=== PATIENT | female | born 1940 | race Caucasian/White ===

== ENCOUNTER 2019-05-19 12:49 | Inpatient (IN) | payer MEDICARE ==
[2019-05-19] MEDS ORDERED: NS 0.9% 1000 ML** 1,000 ML IV ONE (12:55)
--- NOTE | 2019-05-19 12:59 | ED ---
Complex/Multi-Sys Presentation - HPI Summary HPI Summary: This patient is a 78 year old F brought to [facility] by EMS with a chief complaint of nausea/vomiting/diarrhea for the past 3 days since 05/16/19. Symptoms aggravated by nothing. Symptoms alleviated by nothing. Pt reports watery diarrhea (but denies blood). Pt denies shortness of breath, chest pain, abdominal pain, fever. Pt denies abx or traveling. Pt denies suspicious foods and anyone sick at home. Pt lives at home with . Hx bypass surgery. - History Of Current Complaint Hx Obtained From: Patient Onset/Duration: Lasting Days - 3, Still Present Aggravating Factor(s): nothing Alleviating Factor(s): nothing Associated Signs And Symptoms: Positive: Other - denies blood in diarrhea. Negative: SOB, Chest Pain, Abdominal Pain, Fever - Allergies/Home Medications Allergies/Adverse Reactions: Allergies Allergy/AdvReac Type Severity Reaction Status Date / Time No Known Allergies Allergy Verified 05/19/19 13:24 PMH/Surg Hx/FS Hx/Imm Hx Endocrine/Hematology History: Denies: Hx Diabetes Cardiovascular History: Reports: Other Cardiovascular Problems/Disorders - triple bypass Musculoskeletal History: Reports: Other Musculoskeletal History - sciatica Sensory History: Reports: Hx Contacts or Glasses Opthamlomology History: Reports: Hx Contacts or Glasses - Surgical History Surgery Procedure, Year, and Place: triple bypass, stomach operation (it was twisted and always had heartburn) - Family History Known Family History: Positive: Other - sciatica Negative: Cardiac Disease, Diabetes - Social History Alcohol Use: Rare Hx Substance Use: No Substance Use Type: Reports: None Hx Tobacco Use: Yes Smoking Status (MU): Former Smoker Review of Systems Negative: Fever Negative: Chest Pain Negative: Shortness Of Breath Positive: Vomiting, Diarrhea, Nausea, Other - denies blood in diarrhea. Negative: Abdominal Pain All Other Systems Reviewed And Are Negative: Yes Physical Exam - Summary Physical Exam Summary: VITAL SIGNS: Reviewed. GENERAL: Patient is a elderly and lethargic FEMALE who is lying comfortable in the stretcher. Patient is not in any acute respiratory distress. Pt can answer all questions. HEAD AND FACE: No signs of trauma. No ecchymosis, hematomas or skull depressions. No sinus tenderness. EYES: PERRLA, EOMI x 2, No injected conjunctiva, no nystagmus. EARS: Hearing grossly intact. Ear canals and tympanic membranes are within normal limits. MOUTH: Oral mucosa dry NECK: Supple, trachea is midline, no adenopathy, no JVD, no carotid bruit, no c- spine tenderness, neck with full ROM. CHEST: Symmetric, no tenderness at palpation. LUNGS: Clear to auscultation bilaterally. No wheezing or crackles. CVS: Regular rate and rhythm, S1 and S2 present, no murmurs or gallops appreciated. ABDOMEN: Soft, non-tender. No signs of distention. No rebound, no guarding, and no masses palpated. increased bowel sounds EXTREMITIES: FROM in all major joints, no edema, no cyanosis or clubbing. NEURO: Alert and oriented x 3. No acute neurological deficits. Speech is normal and follows commands. SKIN: increased turgor of skin Triage Information Reviewed: Yes Vital Signs Reviewed: Yes Procedures - Sedation Patient Received Moderate/Deep Sedation with Procedure: No Diagnostics - Laboratory Result Diagrams: 05/20/19 11:43 05/20/19 16:33 Lab Statement: Any lab studies that have been ordered have been reviewed, and results considered in the medical decision making process. - Radiology Abdomen X-Ray Radiology Interpretation Completed By: Radiologist Summary of Radiographic Findings: Per radiologist,. 1. Generalized paucity of bowel gas with a few dilated small bowel loops measuring up to. 3 cm. Gas does extend to the rectum. A partial bowel obstruction is not excluded. 2. Unknown rounded 4 cm structure projects in the region of the left heart border. ED physician has reviewed this imaging report. Chest X-Ray Radiology Interpretation Completed By: ED Physician Summary of Radiographic Findings: Per ED Physician,. Infiltrate on the left side. Pending official report. - CT Abdomen/Pelvis CT CT Interpretation Completed By: Radiologist Summary of CT Findings: Per radiologist,. 1. THERE IS A 3.9 CM NONAGGRESSIVE APPEARING CALCIFIED STRUCTURE ABUTTING THE POSTERIOR. LEFT HEART BORDER. THE ETIOLOGY OF THIS STRUCTURE IS UNCLEAR. CONSIDERATIONS INCLUDE. POSTOPERATIVE CHANGES AND COMPLICATED PERICARDIAL CYST. ELECTIVE FOLLOW-UP TO DOCUMENT. STABILITY. 2. THERE ARE SEVERAL FLUID-FILLED DISTENDED (NOT DILATED) LOOPS OF SMALL BOWEL WITH AN. OVERALL APPEARANCE SUGGESTIVE OF ENTERITIS. 3. SIGMOIDAL DIVERTICULOSIS WITH NO SECONDARY SIGNS OF INFLAMMATION. 4. CHOLELITHIASIS WITH NO INTRAHEPATIC BILIARY DUCTAL DILATATION. 5. NONOBSTRUCTIVE CALCULUS IN THE SUPERIOR POLE THE RIGHT KIDNEY. 6. SMALL HIATAL HERNIA. ED physician has reviewed this imaging report. - EKG 1324 Cardiac Rate: NL - 118 BPM Summary of EKG Findings: EKG reveals sinus tachycardia at 118 BPM, no ST elevations, multiple PVCs,similar to prior on 03/12/08. Complex Multi-Symp Course/Dx Assessment/Plan: This patient is a 78 year old F brought to [facility] by EMS with a chief complaint of nausea/vomiting/diarrhea for the past 3 days since 05/16/19. Symptoms aggravated by nothing. Symptoms alleviated by nothing. Pt reports watery diarrhea (but denies blood). Pt denies shortness of breath, chest pain, abdominal pain, fever. Pt denies abx or traveling. Pt denies suspicious foods and anyone sick at home. Pt lives at home with . Hx bypass surgery. Patient alert the sepsis alert. She started IVF 30 cc/kg and since she is having diarrhea and abdominal pain she was given ciprofloxacin. Blood test result shows a CBC with WBC of 21.1, hemoglobin 12.7, hematocrit 39, plt count 106. CMP without any significant abnormality except for carbon dioxide of 21, anion gap is 13, BUN is 43, creatinine 1.97, glucose 139, lactic acid is 5.8, calcium 8.4, magnesium 1.6, total bili is 1.2, CRP 321, total protein 5.8. Abdominal X ray IMPRESSION: 1. Generalized paucity of bowel gas with a few dilated small bowel loops measuring up to 3 cm. Gas does extend to the rectum. A partial bowel obstruction is not excluded. 2. Unknown rounded 4 cm structure projects in the region of the left heart border. Abdominal and pelvic CT IMPRESSION: 1. THERE IS A 3.9 CM NONAGGRESSIVE APPEARING CALCIFIED STRUCTURE ABUTTING THE POSTERIOR LEFT HEART BORDER. THE ETIOLOGY OF THIS STRUCTURE IS UNCLEAR. CONSIDERATIONS INCLUDE POSTOPERATIVE CHANGES AND COMPLICATED PERICARDIAL CYST. ELECTIVE FOLLOW-UP TO DOCUMENT. STABILITY. 2. THERE ARE SEVERAL FLUID-FILLED DISTENDED (NOT DILATED) LOOPS OF SMALL BOWEL WITH AN. OVERALL APPEARANCE SUGGESTIVE OF ENTERITIS. 3. SIGMOIDAL DIVERTICULOSIS WITH NO SECONDARY SIGNS OF INFLAMMATION. 4. CHOLELITHIASIS WITH NO INTRAHEPATIC BILIARY DUCTAL DILATATION. 5. NON-OBSTRUCTIVE CALCULUS IN THE SUPERIOR POLE THE RIGHT KIDNEY. 6. SMALL HIATAL HERNIA. She was given magnesium for hypomagnesemia. I discussed the case with Dr. Dempsey who accepted the patient for admission to the ICU. - Diagnoses Provider Diagnoses: Sepsis, Acute renal failure - Physician Notifications Discussed Care Of Patient With: Renee Dempsey - pulmonary Time Discussed With Above Provider: 16:20 Instructed by Provider To: Admit As Inpatient Discharge ED - Sign-Out/Discharge Documenting (check all that apply): Patient Departure - admit - Discharge Plan Condition: Guarded Disposition: ADMITTED TO [facility] - Billing Disposition and Condition Condition: GUARDED Disposition: Admitted to [facility] - Attestation Statements Document Initiated by Scribe: Yes Documenting Scribe: Keshia Vazquez Provider For Whom Scribe is Documenting (Include Credential): Dr. Dre Castellanos MD Scribe Attestation: I, Keshia Vazquez, scribed for Dr. Dre Castellanos MD on 05/20/19 at 1858. Scribe Documentation Reviewed: Yes Provider Attestation: The documentation as recorded by the Keshia walker accurately reflects the service I personally performed and the decisions made by me, Dr. Dre Castellanos MD Status of Scribe Document: Viewed
[2019-05-19 13:26] LABS: ABS Lymphocytes 0.3 10^3/ul (1.0-4.8); ABS Monocytes 0.7 10^3/ul (0-0.8); Eosinophil % 0.1 %; Hematocrit 39 % (35-47); Hemoglobin 12.7 g/dL (12.0-16.0); Lymphocyte % 1.3 %; Mean Corpuscular HGB Conc 33 g/dL (31-36); Mean Corpuscular Hemoglobin 30 pg (27-31); Mean Corpuscular Volume 91 fL (80-97); Mean Platelet Volume 8.9 fL (7.4-10.4); Nucleated Red Blood Cells % 0.1; Platelet Count 106 10^3/uL (150-450); Red Blood Count 4.29 10^6 /uL (3.70-4.87); Red Cell Distribution Width 16 % (10-15); White Blood Count 21.1 10^3/uL (3.5-10.8)
[2019-05-19] MEDS ORDERED: NS 0.9% 1000 ML** 1,000 ML IV.FLUID IV ONE (13:35)
[2019-05-19] MEDS ORDERED: cefTRIAXone(*) 1 GM in NS 0.9% 50 ML* 50 ML IVPB ONE (13:35)
[2019-05-19] MEDS ORDERED: metroNIDAZOLE IV 500 MG/100ML* 500 MG/100 ML BAG IVPB ONE (13:35)
[2019-05-19 13:54] LABS: ALT 28 U/L (7-52); AST 39 U/L (13-39); Albumin 3.3 g/dL (3.2-5.2); Albumin/Globulin Ratio 1.3 (1-3); Alkaline Phosphatase 171 U/L (34-104); Anion Gap 13 mmol/L (2-11); BUN/Creatinine Ratio 21.8 (8-20); Blood Urea Nitrogen 43 mg/dL (6-24); C Reactive Protein 321.89 mg/L (<8.01); CO2 Carbon Dioxide 21 mmol/L (22-32); Calcium 8.4 mg/dL (8.6-10.3); Chloride 102 mmol/L (101-111); EGFR African American 29.8 (>60); EGFR Non-African American 24.7 (>60); Globulin 2.5 g/dL (2-4); Glucose 139 mg/dL (70-100); Magnesium 1.6 mg/dL (1.9-2.7); Potassium 3.9 mmol/L (3.5-5.0); Sodium 136 mmol/L (135-145); Total Protein 5.8 g/dL (6.4-8.9)
[2019-05-19] MEDS ORDERED: Magnesium Sulfate 2 GM IV* 2 GM/50 ML BAG IVPB ONE (16:20)
[2019-05-19] MEDS ORDERED: Piperacillin/Tazobac ADVAN(*) 3.375 GM in NS 0.9% 100 ML* 100 ML IVPB ONE (16:54)
[2019-05-19] MEDS ORDERED: Zosyn per Pharmacy* NOTE FOLLOW UP SCH (17:00)
[2019-05-19] MEDS ORDERED: Acetaminophen TAB* 325 MG PO ONE (17:06)
[2019-05-19 17:07] LABS: Urine Appearance Cloudy; Urine Bilirubin Negative (Negative); Urine Blood 3+ (Negative); Urine Color Amber; Urine Glucose Negative (Negative); Urine Ketones Negative (Negative); Urine Nitrite Negative (Negative); Urine Protein 2+(100 mg/dL) (Negative); Urine Specific Gravity 1.015 (1.010-1.030); Urine Urobilinogen Negative (Negative)
[2019-05-19 17:13] LABS: Urine Bacteria Absent (Absent); Urine Red Blood Cell 2+(6-10/hpf) (Absent); Urine Squamous Epithelial Cell Present (Absent); Urine White Blood Cell Trace(0-5/hpf) (Absent)
[2019-05-19 19:33] LABS: Influenza A Molecular NEGATIVE (Negative); Influenza B Molecular NEGATIVE (Negative)
--- NOTE | 2019-05-19 19:48 | HP ---
HISTORY AND PHYSICAL: DATE OF ADMISSION: 05/19/19 CHIEF COMPLAINT: Nausea, vomiting, confusion. HISTORY OF PRESENT ILLNESS: The patient is a 78-year-old female with history of coronary artery disease status post cardiac bypass, chronic back pain secondary to sciatica, history of hiatal hernia requiring surgery. The patient was brought in by her for evaluation of nausea, vomiting, and altered mental status. The patient has been having nausea, vomiting, and diarrhea for the past 3 days. She has not been able to put anything down due to this. The patient also has been having watery diarrhea. The patient has history of intermittent diarrhea since her GI surgery in the past. The patient is with no evidence of blood in the diarrhea. She has not had any oral intake for the past 3 days. No fevers at home. The patient denies shortness of breath, chest pain or abdominal pain. No history of sick contacts. No other family members with similar symptoms. No recent travel. She lives at home with her . On arrival to the ED, the patient was noted to be tachycardic and tachypneic with blood pressure 95/56. The patient also noted to have significantly elevated lactate at 5.8. She was also noted to have elevated BUN and creatinine and elevated anion gap. The patient is with elevated white count at 21 and low platelet count. The patient has been afebrile on arrival, but later was found to have temperature. The patient is being admitted to ICU with diagnosis of sepsis, septic shock, probably secondary to GI source. The patient is seen and examined at bedside. The patient was more confusion on arrival, currently with improved blood pressure. She appears to be more cognitively intact. The patient not with any nausea currently. PAST MEDICAL HISTORY: 1. Coronary artery disease status post cardiac bypass. 2. Chronic back pain secondary to sciatica. 3. Hiatal hernia requiring surgery for twisted bowels. ALLERGIES: No known medication allergies. FAMILY HISTORY: Positive for sciatica. No history of diabetes or coronary artery disease. SOCIAL HISTORY: Former smoker quit many years ago. Quit alcohol 3 years ago. No drug abuse. REVIEW OF SYSTEMS: All 12 systems reviewed and as per HPI. PHYSICAL EXAMINATION GENERAL: An elderly female, in bed, in no apparent distress. VITAL SIGNS: Temperature 98, pulse 120 beats per minute, respiratory rate 25 per minute, O2 sat 95% on room air, blood pressure 95/56. HEENT: Pupils equal, reactive to light. Mucous membranes are moist. LUNGS: Good air entry bilaterally. No wheeze or crackles. CARDIOVASCULAR: S1, S2 present, tachycardic. ABDOMEN: Soft, nontender, nondistended. Bowel sounds present. EXTREMITIES: Normal range of motion. NEURO: Alert, awake, oriented x3. No focal deficits. SKIN: Dry. No rashes in the upper extremities. The patient is noted to have slight mottling of the skin in the lower extremities with some lazy rash. DIAGNOSTIC STUDIES/LAB DATA: WBC count 21.1, hemoglobin 12.7, hematocrit 39, platelet count 106. Sodium 136, potassium 3.9, chloride 102, bicarb 21, anion gap 13, BUN 43, creatinine 1.97, lactate elevated at 5.8, lipase less than 10. The patient is with elevated alk phos slightly at 171. AST and ALT were within normal limits. T-bili is slightly elevated at 1.2. Magnesium was low at 1.6. Calcium 8.4. CRP elevated at 321. Albumin within normal limits. Abdominal x-ray showed generalized paucity of bowel gas with few dilated small bowel loops measuring up to 3 cm, gas extending into the rectum and partial bowel obstruction could not be excluded. The patient had abdominal pelvis CT, which did not reveal intrahepatic biliary obstruction. Evidence of cholelithiasis with no biliary duct dilatation. Nonobstructive calculus in the superior pole of the right kidney. The patient is noted to have several fluid filled distended loops of small bowel suggestive of possible enteritis. 3.9 cm calcified structure suggestive of possible pericardial cyst. Chest x-ray showed evidence of basal atelectasis with no acute airspace opacities. EKG showed old Q waves with no acute ST-T wave changes. Slightly prolonged QT interval. IMPRESSION AND RECOMMENDATION: 78-year-old female brought in for evaluation of nausea, vomiting, and diarrhea, going on for the past 3 to 4 days. The patient is noted to be having elevated white count, low platelets and increased anion gap, metabolic acidosis. The patient is also with acute renal failure likely secondary to dehydration and sepsis. The patient also with mildly elevated T- bili with elevated alk phos with no evidence of biliary duct dilatation and with evidence of cholelithiasis. The patient with evidence of enteritis. The patient is also with significantly elevated lactic acid at 5.8. The patient will be admitted to ICU for sepsis and septic shock secondary to GI source. The patient will be initiated on antibiotics, Zosyn. Will also continue with Flagyl until C. diff workup is found to be negative. Will repeat lactate in 3 hours. Fluids as per sepsis protocol. Will obtain influenza testing. No acute EKG changes are noted. The patient is with leukocytosis and thrombocytopenia likely secondary to sepsis. Acute renal failure secondary to sepsis and dehydration. Continue with fluid hydration. Will replete magnesium. Glucose is slightly elevated. No history of diabetes. Will monitor closely in ICU. Plan of care discussed with pts and son at bedside TIME SPENT: Total time in admission 45 minutes. [id number]/CPS #: [id number] ESTIVEN
[2019-05-19 19:52] LABS: Albumin 2.9 g/dL (3.2-5.2); Albumin/Globulin Ratio 1.2 (1-3); BUN/Creatinine Ratio 25.1 (8-20); Calcium 7.6 mg/dL (8.6-10.3); EGFR African American 34.2 (>60); EGFR Non-African American 28.3 (>60); Globulin 2.4 g/dL (2-4); Hematocrit 36 % (35-47); Hemoglobin 12.2 g/dL (12.0-16.0); Mean Corpuscular HGB Conc 34 g/dL (31-36); Mean Corpuscular Hemoglobin 31 pg (27-31); Mean Corpuscular Volume 90 fL (80-97); Red Blood Count 4.01 10^6 /uL (3.70-4.87); Red Cell Distribution Width 15 % (10-15); Total Bilirubin 1.3 mg/dL (0.2-1.0); Total Protein 5.3 g/dL (6.4-8.9); White Blood Count 8.8 10^3/uL (3.5-10.8)
[2019-05-19] MEDS: NS 0.9% 1000 ML** 1,000 ML IV SCH (20:13)
[2019-05-19] MEDS ORDERED: NS 0.9% 500 ML* 500 ML IV ONE ×2 (20:23→21:06)
[2019-05-19 20:24] LABS: ABS Lymphocytes 0.2 10^3/ul (1.0-4.8); ABS Monocytes 0.2 10^3/ul (0-0.8); ABS Neutrophils 8.3 10^3/ul (1.5-7.7); Eosinophil % 0.2 %; Lymphocyte % 2.7 %; Nucleated Red Blood Cells % 0.3; Platelet Count Platelets clumped. 10^3/uL (150-450)
[2019-05-19] MEDS: KCL 10 MEQ/50 ML IVPREMIX* 10 MEQ/50 ML BAG IV SCH ×2 (20:57→22:44)
[2019-05-19] MEDS ORDERED: Midazolam* 1 MG/ML 2 ML VIAL (2 MG) ONE (21:16)
[2019-05-19] MEDS ORDERED: Midazolam* 1 MG/ML 2 ML VIAL (2 MG) IV SLOW PU ONE (21:16)
[2019-05-19] MEDS ORDERED: metroNIDAZOLE IV 500 MG/100ML* 500 MG/100 ML BAG IVPB SCH (22:00)
[2019-05-19] MEDS: ZOSYN 3.375 GM Q8H per EXTENDED INFUSION IVPB SCH ×2 (22:44)
[2019-05-19] MEDS: Norepinephrine 16MCG/ML IVPRE* 4,000 MCG/250 ML BAG IV SCH (23:00)
[2019-05-19 23:29] LABS: Platelet Count 68 10^3/uL (150-450)
[2019-05-20 00:05] LABS: Albumin 2.8 g/dL (3.2-5.2); Albumin/Globulin Ratio 1.2 (1-3); BUN/Creatinine Ratio 23.3 (8-20); Calcium 7.2 mg/dL (8.6-10.3); EGFR African American 31.3 (>60); EGFR Non-African American 25.9 (>60); Globulin 2.4 g/dL (2-4); Potassium 3.4 mmol/L (3.5-5.0); Total Bilirubin 1.3 mg/dL (0.2-1.0); Total Protein 5.2 g/dL (6.4-8.9)
[2019-05-20] MEDS: metroNIDAZOLE IV 500 MG/100ML* 500 MG/100 ML BAG IVPB SCH ×3 (00:08→18:07)
[2019-05-20 00:38] LABS: TSH (Thyroid Stimulating Horm) 1.18 mcIU/mL (0.34-5.60)
[2019-05-20 00:40] LABS: Free T4 1.19 ng/dL (0.61-1.12)
[2019-05-20] MEDS: NS 0.9% 1000 ML** 1,000 ML IV SCH ×2 (01:39→16:23)
[2019-05-20] MEDS: ZOSYN 3.375 GM Q8H per EXTENDED INFUSION IVPB SCH ×2 (05:16)
[2019-05-20 05:22] LABS: Hematocrit 35 % (35-47); Hemoglobin 11.8 g/dL (12.0-16.0); Mean Corpuscular HGB Conc 34 g/dL (31-36); Mean Corpuscular Hemoglobin 30 pg (27-31); Mean Corpuscular Volume 90 fL (80-97); Red Blood Count 3.91 10^6 /uL (3.70-4.87); Red Cell Distribution Width 16 % (10-15); White Blood Count 17.9 10^3/uL (3.5-10.8)
[2019-05-20 05:38] LABS: Albumin 2.9 g/dL (3.2-5.2); Albumin/Globulin Ratio 1.2 (1-3); BUN/Creatinine Ratio 23.3 (8-20); Calcium 7.1 mg/dL (8.6-10.3); EGFR Non-African American 23.9 (>60); Globulin 2.4 g/dL (2-4); Potassium 3.5 mmol/L (3.5-5.0); Total Bilirubin 1.4 mg/dL (0.2-1.0); Total Protein 5.3 g/dL (6.4-8.9)
[2019-05-20 06:07] LABS: Platelet Count 53 10^3/uL (150-450)
[2019-05-20 06:08] LABS: Mean Platelet Volume 9.5 fL (7.4-10.4)
[2019-05-20 06:10] LABS: Polychromasia 1+
[2019-05-20] MEDS: KCL 20 MEQ/100 ML IVPREMIX* 20 MEQ/100 ML BAG IV SCH ×2 (08:23→10:56)
[2019-05-20] MEDS ORDERED: Calcium Gluconate INJ* 2 GM in NS 0.9% 100 ML* 100 ML IVPB ONE (08:30)
[2019-05-20] MEDS ORDERED: D5W 1/2 NS 1000 ML BAG* 1,000 ML IV SCH (09:00)
[2019-05-20 11:56] LABS: Hematocrit 35 % (35-47); Hemoglobin 11.3 g/dL (12.0-16.0); Mean Corpuscular HGB Conc 33 g/dL (31-36); Mean Corpuscular Hemoglobin 30 pg (27-31); Mean Corpuscular Volume 91 fL (80-97); Mean Platelet Volume 9.7 fL (7.4-10.4); Platelet Count 42 10^3/uL (150-450); Red Blood Count 3.78 10^6 /uL (3.70-4.87); Red Cell Distribution Width 16 % (10-15); White Blood Count 26.9 10^3/uL (3.5-10.8)
[2019-05-20 12:07] LABS: Albumin 2.8 g/dL (3.2-5.2); Albumin/Globulin Ratio 1.2 (1-3); BUN/Creatinine Ratio 21.8 (8-20); Calcium 7.6 mg/dL (8.6-10.3); EGFR African American 26.8 (>60); EGFR Non-African American 22.2 (>60); Globulin 2.3 g/dL (2-4); Potassium 3.9 mmol/L (3.5-5.0); Total Bilirubin 1.2 mg/dL (0.2-1.0); Total Protein 5.1 g/dL (6.4-8.9)
[2019-05-20 12:51] LABS: Burr Cells 1+; Platelet Morphology Large
[2019-05-20 12:53] LABS: ABS Basophils 0.1 10^3/ul (0-0.2); ABS Eosinophils 3.2 10^3/ul (0-0.6); ABS Monocytes 1.3 10^3/ul (0-0.8); ABS Neutrophils 21.3 10^3/ul (1.5-7.7); Eosinophil % 11.9 %; Lymphocyte % 3.7 %
--- NOTE | 2019-05-20 13:11 | CONS ---
CC: Dr. Sutherland * SURGICAL CONSULTATION REPORT: DATE OF CONSULT: 05/20/19 LOCATION: The patient was seen in the ICU. PRIMARY CARE DOCTOR: Dr. Sutherland. HISTORY OF PRESENT ILLNESS: Ms. Fortune is a 78-year-old female who presented to the emergency room yesterday with a 3-day history of nausea, vomiting, diarrhea , and lethargy. She was noted to be toxic in the emergency room and was admitted to the ICU care, where she was treated with IV fluids. Her workup included a CAT scan as well as labs as well as EKG. The patient was maintained on n.p.o. status and IV fluids, had a central line placed, and is currently on pressors. She is awake, but a poor historian, stating that she has not been feeling well. She denies abdominal pain at this time. She has some appetite. With hydration, her lactate improved, but her shock has not resolved and surgical consultation was requested. PAST MEDICAL HISTORY: Coronary artery disease, status post CABG. PAST SURGICAL HISTORY: Laparoscopic hiatal hernia repair. Despite the record, this seems to have been a nonurgent procedure done at [facility]. MEDICATIONS: Currently, the patient is on: 1. Flagyl. 2. She is on Levophed. 3. Zosyn. 4. IV fluids. ALLERGIES: No known drug allergies. SOCIAL HISTORY: She lives at home with her . Nonsmoker. REVIEW OF SYSTEMS: The patient denied chills. She has had colonoscopy in the past. We do not have record of it here as the patient is not a patient through the [facility]. PHYSICAL EXAM: The patient is febrile at 101.5 through a Pisano probe, heart rate 103, blood pressure 109/58 with a MAP of 78 on small-dose Levophed, she is tachypneic with respirations of 35, and O2 sat in the 90s on 3 L nasal cannula, using accessory muscles to breathe. She is alert and oriented x3. She is in mild respiratory distress. She is lying on her side. When prompted, she will lie on her back. Examination of her abdomen is soft, nondistended. Tender at the left side with no rebound. Well-healed laparoscopic incisions. No hernias noted. DIAGNOSTIC STUDIES/LAB DATA: Labs reviewed. The patient's white count when she came in was 21; repeat this morning shows it is 18 with 16 bands and platelets of 53. Chemistry panel shows decreasing CO2, improving lactate where it is normalized, mildly elevated LFTs including bilirubin, potassium of 3.5, and an elevated creatinine of 2.0 which is about the patient's arrival creatinine; however, it had gone down before going back up. The patient's CT scan with non-IV and p.o. contrast was reviewed. It showed no free air. I did not appreciate any free fluid. She had fluid-filled small- bowel, sigmoid diverticulitis without inflammation, and cholelithiasis. Chest x-ray reviewed. IMPRESSION AND PLAN: A 78-year-old female presents with septic shock of unclear etiology. Chief concern is abdominal given the patient's presentation of nausea, vomiting. Despite the negative CT scan, the patient does have left- sided abdominal pain and could be suggestive of enteritis versus colitis. It could be possibly ischemic colitis given the patient's history of coronary artery disease. The patient is currently on antibiotics and improving based on some parameters, but not in others. Plan is for close followup and the possibility of exploration of the abdomen if she persists in this sepsis. [id number]/CPS #: [id number] MTDD
--- NOTE | 2019-05-20 14:39 | PN ---
Date of Service: 05/20/19 - [facility] note Critical Care Services: Pt seen and examined at bedside. Pt continues to remain critical. Pt has significant acidosis, lactic acid normalized. Has required low dose Levo last night, has been off this morning, BP just started to go down, will need to restart again. Mental status is unchanged. Active Medications Generic Name Dose Route Start Last Admin Trade Name Yair PRN Reason Stop Dose Admin Sodium Chloride 1,000 mls @ 150 mls/hr 05/19/19 17:00 05/20/19 01:39 Ns 0.9% 1000 Ml IV 150 mls/hr PER RATE MJ Administration Norepinephrine Bitartrate 4,000 mcg in 250 mls @ 7.5 mls/hr 05/19/19 21:00 23:00 Levophed 16 Mcg/Ml Premix* IV 7.5 mls/hr .INITIAL RATE MJ Administration Protocol 2 MCG/MIN Metronidazole/Sodium Chloride 500 mg in 100 mls @ 100 mls/hr 05/20/19 01:00 05/20/19 10:18 Flagyl 500 Mg Ivpb* IVPB 100 mls/hr Q8H MJ Administration Dextrose/Sodium Chloride 1,000 mls @ 100 mls/hr 05/20/19 09:00 05/20/19 08:28 D5w 1/2 Ns 1000 Ml Bag* IV 100 mls/hr PER RATE MJ Administration Piperacillin Sod/Tazobactam 100 mls @ 25 mls/hr 05/20/19 17:00 Sod 3.375 gm/ Sodium Chloride IVPB Q12H MJ Sodium Bicarbonate 100 meq/ 1,000 mls @ 100 mls/hr 05/20/19 15:00 Dextrose IV 05/21/19 00:59 ONCE ONE Diltiazem/Dextrose 125 mg in 125 mls @ 5 mls/hr 05/20/19 15:00 Cardizem Iv D5w Bag* Premix IV .PER PROTOCOL MJ Protocol 5 MG/HR Pharmacy Consult 1 note 05/19/19 17:00 Zosyn Per Pharmacy* FOLLOW UP .ZOSYN PER PHARMACY [facility] Vital Signs: Temp Pulse Resp BP SpO2 FiO2 99.5 F 122 29 124/66 94 05/20/19 13:30 05/20/19 13:30 05/20/19 13:30 05/20/19 13:30 05/20/19 13:30 Physical Exam: Gen: Pt is alert, awake, orientedx4 HEENT: PERRLA Lungs: Diminished at bases Cardiac: S1, S2+ Abdomen: Soft, tenderness in LUQ, no rebound Extremities: Normal ROM Neuro: Alert, awake, no focal deficits Fluid Balance (Past 24 Hours): I= 5148 O= 308 Net 4840 Intake & Output 05/18/19 05/19/19 05/20/19 05/21/19 06:59 06:59 06:59 06:59 Intake Total 5148 Output Total 308 225 Balance 4840 -225 Weight 147 lb 7.828 oz Intake: IV Fluids 4707 NS 2617 IVPB 358 KCl 122 flagyl 109 zosyn 127 Medicated IV 83 CC - Norepinephrine/ 83 Levophed Output: [place] 308 225 Other: Date of Last Bowel 05/20/19 Movement # Bowel Movements 6 Estimated Stool Amount Small Labs: Laboratory Results - last 24 hr 05/19/19 05/19/19 05/19/19 13:19 16:50 17:00 WBC RBC Hgb Hct MCV MCH MCHC RDW Plt Count MPV Neut % (Auto) Lymph % (Auto) [place] % (Auto) Eos % (Auto) Baso % (Auto) Absolute Neuts (auto) Absolute Lymphs (auto) Absolute Monos (auto) Absolute Eos (auto) Absolute Basos (auto) Absolute Nucleated RBC Immature Gran % Neutrophils % Band Neutrophils % Lymphocytes % Monocytes % Metamyelocytes % Nucleated RBC % Abs Neuts (Manual) Abs Lymphs (Manual) Abs Monocytes (Manual) Toxic Granulation Dohle Bodies Platelet Morphology Normal RBC Morphology Polychromasia Anisocytosis Lopez Cells Patient Temperature Not Reportable ABG pH 7.36 ABG pH (Temp Correct) Not Reportable ABG pCO2 22 L ABG pCO2 (Temp Corrct Not Reportable ABG pO2 81 ABG pO2 (Temp Correct Not Reportable ABG HCO3 16.4 L ABG O2 Saturation 96.5 ABG Base Excess -10.9 L Respiration Rate Not Reportable O2 Delivery Device Nc Ventilator Type Not Reportable Vent Mode Not Reportable FiO2 Not Reportable Inspiratory Time Not Reportable PEEP Not Reportable Pressure Support Not Reportable Pressure Control Not Reportable EPAP Not Reportable IPAP Not Reportable BiPAP Not Reportable Sodium Potassium Chloride Carbon Dioxide Anion Gap BUN Creatinine Est GFR ( Amer) Est GFR (Non-Af Amer) BUN/Creatinine Ratio Glucose Lactic Acid 5.8 H* Calcium Total Bilirubin AST ALT Alkaline Phosphatase Total Protein Albumin Globulin Albumin/Globulin Ratio TSH Free T4 Urine Color Darlyn Urine Appearance Cloudy Urine pH 5.0 Ur Specific Richardson 1.015 Urine Protein 2+(100 mg/dl) A Urine Ketones Negative Urine Blood 3+ A Urine Nitrate Negative Urine Bilirubin Negative Urine Urobilinogen Negative Ur Leukocyte Esterase Negative Urine WBC (Auto) Trace(0-5/hpf) Urine RBC (Auto) 2+(6-10/hpf) A Ur Squamous Epith Cells Present A Amorphous Crystals Present A Urine Bacteria Absent Urine Glucose Negative Influenza A (Rapid) Influenza B (Rapid) 05/19/19 05/19/19 05/19/19 18:22 19:29 19:29 WBC 8.8 RBC 4.01 Hgb 12.2 Hct 36 MCV 90 MCH 31 MCHC 34 RDW 15 Plt Count Platelets clumped. H MPV Not Reportable Neut % (Auto) 94.6 Lymph % (Auto) 2.7 Lown[place] % (Auto) 2.4 Eos % (Auto) 0.2 Baso % (Auto) 0.1 Absolute Neuts (auto) 8.3 H Absolute Lymphs (auto) 0.2 L Absolute Monos (auto) 0.2 Absolute Eos (auto) 0.0 Absolute Basos (auto) 0.0 Absolute Nucleated RBC 0.0 Immature Gran % Neutrophils % Band Neutrophils % Lymphocytes % Monocytes % Metamyelocytes % Nucleated RBC % 0.3 Abs Neuts (Manual) Abs Lymphs (Manual) Abs Monocytes (Manual) Toxic Granulation Dohle Bodies Platelet Morphology Normal RBC Morphology Polychromasia Anisocytosis Lopez Cells Patient Temperature ABG pH ABG pH (Temp Correct) ABG pCO2 ABG pCO2 (Temp Corrct ABG pO2 ABG pO2 (Temp Correct ABG HCO3 ABG O2 Saturation ABG Base Excess Respiration Rate O2 Delivery Device Ventilator Type Vent Mode FiO2 Inspiratory Time PEEP Pressure Support Pressure Control EPAP IPAP BiPAP Sodium 138 Potassium 3.0 L Chloride 107 Carbon Dioxide 15 L Anion Gap 16 H BUN 44 H Creatinine 1.75 H Est GFR ( Amer) 34.2 Est GFR (Non-Af Amer) 28.3 BUN/Creatinine Ratio 25.1 H Glucose 86 Lactic Acid Calcium 7.6 L Total Bilirubin 1.30 H AST 41 H ALT 26 Alkaline Phosphatase 247 H Total Protein 5.3 L Albumin 2.9 L Globulin 2.4 Albumin/Globulin Ratio 1.2 TSH Free T4 Urine Color Urine Appearance Urine pH Ur Specific Richardson Urine Protein Urine Ketones Urine Blood Urine Nitrate Urine Bilirubin Urine Urobilinogen Ur Leukocyte Esterase Urine WBC (Auto) Urine RBC (Auto) Ur Squamous Epith Cells Amorphous Crystals Urine Bacteria Urine Glucose Influenza A (Rapid) Negative Influenza B (Rapid) Negative 05/19/19 05/19/19 05/19/19 19:29 22:24 23:40 WBC RBC Hgb Hct MCV MCH MCHC RDW Plt Count 68 L D MPV 10.0 Neut % (Auto) Lymph % (Auto) [place] % (Auto) Eos % (Auto) Baso % (Auto) Absolute Neuts (auto) Absolute Lymphs (auto) Absolute Monos (auto) Absolute Eos (auto) Absolute Basos (auto) Absolute Nucleated RBC Immature Gran % Neutrophils % Band Neutrophils % Lymphocytes % Monocytes % Metamyelocytes % Nucleated RBC % Abs Neuts (Manual) Abs Lymphs (Manual) Abs Monocytes (Manual) Toxic Granulation Dohle Bodies Platelet Morphology Normal RBC Morphology Polychromasia Anisocytosis Lopez Cells Patient Temperature ABG pH ABG pH (Temp Correct) ABG pCO2 ABG pCO2 (Temp Corrct ABG pO2 ABG pO2 (Temp Correct ABG HCO3 ABG O2 Saturation ABG Base Excess Respiration Rate O2 Delivery Device Ventilator Type Vent Mode FiO2 Inspiratory Time PEEP Pressure Support Pressure Control EPAP IPAP BiPAP Sodium 137 Potassium 3.4 L Chloride 111 Carbon Dioxide 15 L Anion Gap 11 BUN 44 H Creatinine 1.89 H Est GFR ( Amer) 31.3 Est GFR (Non-Af Amer) 25.9 BUN/Creatinine Ratio 23.3 H Glucose 82 Lactic Acid 4.2 H* Calcium 7.2 L Total Bilirubin 1.30 H AST 42 H ALT 25 Alkaline Phosphatase 192 H Total Protein 5.2 L Albumin 2.8 L Globulin 2.4 Albumin/Globulin Ratio 1.2 TSH 1.18 Free T4 1.19 H Urine Color Urine Appearance Urine pH Ur Specific Richardson Urine Protein Urine Ketones Urine Blood Urine Nitrate Urine Bilirubin Urine Urobilinogen Ur Leukocyte Esterase Urine WBC (Auto) Urine RBC (Auto) Ur Squamous Epith Cells Amorphous Crystals Urine Bacteria Urine Glucose Influenza A (Rapid) Influenza B (Rapid) 1205/20/19 05/20/19 23:40 04:55 04:55 WBC 17.9 H RBC 3.91 Hgb 11.8 L Hct 35 MCV 90 MCH 30 MCHC 34 RDW 16 H Plt Count 53 L MPV 9.5 Neut % (Auto) Not Reportable Lymph % (Auto) Not Reportable [place] % (Auto) Not Reportable Eos % (Auto) Not Reportable Baso % (Auto) Not Reportable Absolute Neuts (auto) Not Reportable Absolute Lymphs (auto) Not Reportable Absolute Monos (auto) Not Reportable Absolute Eos (auto) Not Reportable Absolute Basos (auto) Not Reportable Absolute Nucleated RBC Not Reportable Immature Gran % 18.0 H Neutrophils % 72.0 Band Neutrophils % 16.0 H Lymphocytes % 4.0 Monocytes % 6.0 Metamyelocytes % 2.0 Nucleated RBC % Not Reportable Abs Neuts (Manual) 16.1 H Abs Lymphs (Manual) 0.7 L Abs Monocytes (Manual) 1.1 H Toxic Granulation 1+ Dohle Bodies Present Platelet Morphology Normal RBC Morphology Not Reportable Polychromasia 1+ Anisocytosis 1+ Mayflower Cells Patient Temperature ABG pH ABG pH (Temp Correct) ABG pCO2 ABG pCO2 (Temp Corrct ABG pO2 ABG pO2 (Temp Correct ABG HCO3 ABG O2 Saturation ABG Base Excess Respiration Rate O2 Delivery Device Ventilator Type Vent Mode FiO2 Inspiratory Time PEEP Pressure Support Pressure Control EPAP IPAP BiPAP Sodium 139 Potassium 3.5 Chloride 112 H Carbon Dioxide 14 L* Anion Gap 13 H BUN 47 H Creatinine 2.02 H Est GFR ( Amer) 29.0 Est GFR (Non-Af Amer) 23.9 BUN/Creatinine Ratio 23.3 H Glucose 68 L Lactic Acid 1.8 Calcium 7.1 L Total Bilirubin 1.40 H AST 45 H ALT 25 Alkaline Phosphatase 202 H Total Protein 5.3 L Albumin 2.9 L Globulin 2.4 Albumin/Globulin Ratio 1.2 TSH Free T4 Urine Color Urine Appearance Urine pH Ur Specific Richardson Urine Protein Urine Ketones Urine Blood Urine Nitrate Urine Bilirubin Urine Urobilinogen Ur Leukocyte Esterase Urine WBC (Auto) Urine RBC (Auto) Ur Squamous Epith Cells Amorphous Crystals Urine Bacteria Urine Glucose Influenza A (Rapid) Influenza B (Rapid) 12/08/19 12/08/19 12/08/19 11:43 11:43 11:43 WBC 26.9 H RBC 3.78 Hgb 11.3 L Hct 35 MCV 91 MCH 30 MCHC 33 RDW 16 H Plt Count 42 L MPV 9.7 Neut % (Auto) 79.4 Lymph % (Auto) 3.7 [place] % (Auto) 4.7 Eos % (Auto) 11.9 Baso % (Auto) 0.3 Absolute Neuts (auto) 21.3 H Absolute Lymphs (auto) 1.0 Absolute Monos (auto) 1.3 H Absolute Eos (auto) 3.2 H Absolute Basos (auto) 0.1 Absolute Nucleated RBC 0.0 Immature Gran % 10.0 H Neutrophils % 66.0 Band Neutrophils % 10.0 H Lymphocytes % 15.0 Monocytes % 9.0 Metamyelocytes % Nucleated RBC % 0.0 Abs Neuts (Manual) Abs Lymphs (Manual) Abs Monocytes (Manual) Toxic Granulation Dohle Bodies Platelet Morphology Large Normal RBC Morphology Not Reportable Polychromasia Anisocytosis Mayflower Cells 1+ Patient Temperature ABG pH ABG pH (Temp Correct) ABG pCO2 ABG pCO2 (Temp Corrct ABG pO2 ABG pO2 (Temp Correct ABG HCO3 ABG O2 Saturation ABG Base Excess Respiration Rate O2 Delivery Device Ventilator Type Vent Mode FiO2 Inspiratory Time PEEP Pressure Support Pressure Control EPAP IPAP BiPAP Sodium 140 Potassium 3.9 Chloride 113 H Carbon Dioxide 14 L* Anion Gap 13 H BUN 47 H Creatinine 2.16 H Est GFR ( Amer) 26.8 Est GFR (Non-Af Amer) 22.2 BUN/Creatinine Ratio 21.8 H Glucose 99 Lactic Acid 1.9 Calcium 7.6 L Total Bilirubin 1.20 H AST 49 H ALT 24 Alkaline Phosphatase 214 H Total Protein 5.1 L Albumin 2.8 L Globulin 2.3 Albumin/Globulin Ratio 1.2 TSH Free T4 Urine Color Urine Appearance Urine pH Ur Specific Richardson Urine Protein Urine Ketones Urine Blood Urine Nitrate Urine Bilirubin Urine Urobilinogen Ur Leukocyte Esterase Urine WBC (Auto) Urine RBC (Auto) Ur Squamous Epith Cells Amorphous Crystals Urine Bacteria Urine Glucose Influenza A (Rapid) Influenza B (Rapid) Studies: Abd CT: Diffuse enteritis, gall stones. Nutrition: NPO Impression: 78 y o f with h/o CAD s/p CABG, hiatal hernia, GERD. Pt was admitted for evaluation of N, V, diarrhea. Pt noted to have diffuse enteritis. Pt developed lactic acidosis, metabolic acidosis, hypotension. Pt had central line placed last night for administration of pressors. She has required low dose and has been off Levophed since this am. 1. Septic shock secondary to GI source 2. Enteritis 3.N/V, diarrhea 4. Metabolic acidosis, lactic acidosis 5.ARF 6.Elevated LFTs Plan: 1. Neuro: Pt is alert, awake, oriented. Denies any complaints. Aspiration precautions 2. Resp: Maintaining airway well. No evidence of pulmonary vasclar congestion, basal atelctasisi + 3. CVS: Hypotension sec to septic shock on Levophed last night, has not required today until few min ago. Had new onset A.fib on 05/20/19 around 3 pm., started on cardizem drip. Will hold off on anticoagulation sec to low platelets. Pt with h/o CAD s/p CABG in 2012. Home med list not available. No acute St changes on EKG 4.ID: Sepsis sec to GI source. Pt with dark green stool. c.diff negative. Pt on broad spectrum abx- Zosyn, flagyl. Lactic acidosis resolved. Leucocytosis+. Metabolic acidosis+. Septic w/u with bl cx positive for E.Coli. Surgery consult appreciated. Will need Ex lap if deteriorates 5.Renal: UO at 20-30cc/hr. Pt with ARF, likely sec to sepsis and dehydration. Electrolyte abnormalities being corrected. Pt with h/o kidney stones, found to be non-obstructing on CT abdomen, RBC noted on UA. Monitor BMP q 4hrs 6.GI: NPO given concern with enteritis and given pt on pressors. No further episodes of N/V. Continues to have loose stool, Guiac negative. c/w Zofran prn and PPI. 7.Endo: Bl sugars not significantly elevated. Monitor closely. TSH within normal limits 8.Haem: Anemia-stable. Leucocytosis worsened. Thrombocytopenia likely sec to sepsis. 9. Musculoskeltal: Frequent turning and positioning, fall precautions 10. Psych/Social: Pt is HCP. Emmanuel amaro plan of care when avaialble DVT px: On hold sec to thrombocytopenia. Will c/w SCDs Pisano catheter to prevent skin breakdown Pt is full code IV access- Rt IJ Critical Care Time: 45 min
[2019-05-20] MEDS ORDERED: SODIUM BICARBONATE IV ONE (15:00)
[2019-05-20] MEDS ORDERED: Diltiazem IV BAG* D5W Premix 125 MG/125 ML BAG IV SCH (15:00)
[2019-05-20] MEDS ORDERED: D5W IV ONE (15:00)
[2019-05-20 16:55] LABS: BUN/Creatinine Ratio 21.9 (8-20); Calcium 7.6 mg/dL (8.6-10.3); EGFR African American 25.7 (>60); EGFR Non-African American 21.3 (>60); Potassium 3.8 mmol/L (3.5-5.0)
[2019-05-20] MEDS ORDERED: KCL 20 MEQ/100 ML IVPREMIX* 20 MEQ/100 ML BAG IV ONE (16:59)
[2019-05-20] MEDS ORDERED: Calcium Gluconate INJ* 2 GM in NS 0.9% 100 ML* 100 ML IV ONE (17:30)
[2019-05-20] MEDS ORDERED: Furosemide IV* 10 MG/ML 2 ML VIAL (20 MG) IV SLOW PU ONE ×2 (17:51→18:12)
[2019-05-20] MEDS: ZOSYN 3.375 GM Q12H per EXTENDED INFUSION IVPB SCH ×4 (18:07→19:36)
--- NOTE | 2019-05-20 19:18 | PN ---
Subjective Date of Service: 05/19/19 Interval History: Procedure note Indication for CVC placement: septic shock] Consent obtained from . Patient prepped and draped in sterile fashion. Right IJ identified using ultrasound. No sedation necessary. Lidocaine was used to anesthetize the surrounding skin area. A triple lumen Cordis catheter was introduced into the internal jugular vein using seldinger technique. The catheter was threaded smoothly over the guide wire. Each lumen of the catheter was evacuated of air and flushed with sterile saline. The catheter was sutured in place to the skin. Patient tolerated the procedure well. Attempts: 3 Objective Active Medications: Norepinephrine Bitartrate (Levophed 16 Mcg/Ml Premix*) 4,000 mcg in 250 mls @ 7.5 mls/hr IV .INITIAL RATE MJ; Protocol Last Admin: 05/19/19 23:00 Dose: 7.5 mls/hr Metronidazole/Sodium Chloride (Flagyl 500 Mg Ivpb*) 500 mg in 100 mls @ 100 mls /hr IVPB Q8H MJ Last Admin: 05/20/19 18:07 Dose: 100 mls/hr Piperacillin Sod/Tazobactam (Sod 3.375 gm/ Sodium Chloride) 100 mls @ 25 mls/ hr IVPB Q12H MJ Last Admin: 05/20/19 18:07 Dose: 25 mls/hr Sodium Bicarbonate 100 meq/ (Dextrose) 1,000 mls @ 100 mls/hr IV ONCE ONE Stop: 05/21/19 00:59 Last Admin: 05/20/19 15:34 Dose: 100 mls/hr Diltiazem/Dextrose (Cardizem Iv D5w Bag* Premix) 125 mg in 125 mls @ 5 mls/hr IV .PER PROTOCOL MJ; Protocol Last Admin: 05/20/19 14:41 Dose: 5 mls/hr Sodium Chloride (Ns 0.9% 1000 Ml) 1,000 mls @ 100 mls/hr IV PER RATE MJ Last Admin: 05/20/19 16:23 Dose: 100 mls/hr Calcium Gluconate 2 gm/ Sodium (Chloride) 120 mls @ 60 mls/hr IV ONCE ONE Stop: 05/20/19 19:29 Last Admin: 05/20/19 18:07 Dose: 60 mls/hr Pharmacy Consult (Rachelsyn Per Pharmacy*) 1 note FOLLOW UP .ZOSYN PER PHARMACY MJ Vital Signs - 8 hr 05/20/19 05/20/19 05/20/19 11:27 11:30 11:45 Temperature 100.2 F 100.2 F 100.0 F Pulse Rate 108 105 Respiratory 29 26 21 Rate Blood Pressure 109/55 94/51 96/50 (mmHg) O2 Sat by Pulse 94 94 Oximetry 05/20/19 05/20/19 05/20/19 11:48 12:00 12:15 Temperature 99.9 F 99.9 F 99.9 F Pulse Rate 99 Respiratory 18 29 Rate Blood Pressure 123/63 94/46 96/47 (mmHg) O2 Sat by Pulse 95 Oximetry 05/20/19 05/20/19 05/20/19 12:30 12:31 12:45 Temperature 99.7 F 99.7 F 99.5 F Pulse Rate 104 Respiratory Rate Blood Pressure 97/47 96/46 102/51 (mmHg) O2 Sat by Pulse 96 Oximetry 05/20/19 05/20/19 05/20/19 12:55 12:56 13:00 Temperature 99.5 F 99.5 F 99.5 F Pulse Rate 100 100 101 Respiratory 17 30 28 Rate Blood Pressure 100/41 111/59 117/66 (mmHg) O2 Sat by Pulse 94 93 95 Oximetry 05/20/19 05/20/19 05/20/19 13:15 13:30 13:45 Temperature 99.5 F 99.5 F 99.5 F Pulse Rate 104 122 107 Respiratory 28 29 30 Rate Blood Pressure 107/62 124/66 92/63 (mmHg) O2 Sat by Pulse 90 94 94 Oximetry 05/20/19 05/20/19 05/20/19 14:00 14:15 14:30 Temperature 99.5 F 99.5 F 99.5 F Pulse Rate 123 131 132 Respiratory 29 29 31 Rate Blood Pressure 91/67 99/75 98/74 (mmHg) O2 Sat by Pulse 95 96 95 Oximetry 05/20/19 05/20/19 05/20/19 14:45 15:00 15:15 Temperature 99.7 F 99.7 F 99.7 F Pulse Rate 114 95 96 Respiratory 30 28 29 Rate Blood Pressure 104/62 115/65 120/61 (mmHg) O2 Sat by Pulse 96 96 95 Oximetry 12/01/2905/20/19 05/20/19 15:30 15:45 16:00 Temperature 99.7 F 99.7 F 98.8 F Pulse Rate 96 96 91 Respiratory 27 28 24 Rate Blood Pressure 120/63 115/59 (mmHg) O2 Sat by Pulse 95 93 90 Oximetry 05/20/19 05/20/19 05/20/19 16:45 17:00 17:15 Temperature 99.5 F 99.5 F 99.5 F Pulse Rate 90 90 101 Respiratory 25 21 28 Rate Blood Pressure 117/58 116/57 117/57 (mmHg) O2 Sat by Pulse 92 92 91 Oximetry 05/20/19 05/20/19 05/20/19 17:30 17:45 18:00 Temperature 99.5 F 99.5 F 99.5 F Pulse Rate 90 88 89 Respiratory 28 28 27 Rate Blood Pressure 123/60 117/59 117/58 (mmHg) O2 Sat by Pulse 92 91 92 Oximetry 05/20/19 18:15 Temperature 99.5 F Pulse Rate 132 Respiratory 29 Rate Blood Pressure 107/61 (mmHg) O2 Sat by Pulse 92 Oximetry Oxygen Devices in Use Now: Nasal Cannula Result Diagrams: 05/20/19 11:43 05/20/19 16:33 Microbiology and Other Data: Microbiology 05/19/19 15:28 Aerobic Blood Culture - Preliminary Blood Venous No Growth Day 1 Anaerobic Blood Culture - Preliminary No Growth Day 1 05/19/19 16:50 Urine Culture - Final Urine No Growth (<1,000 CFU/mL) 05/19/19 14:14 Aerobic Blood Culture - Preliminary Blood Venous Escherichia Coli Anaerobic Blood Culture - Preliminary Escherichia Coli 05/19/19 20:00 Nasal Screen MRSA (PCR) - Final Nasal Mrsa Not Detected 05/19/19 16:50 Stool Occult Blood (GEOVANNY) - Final Stool 05/19/19 16:50 Stool Gross Appearance - Final Stool C. difficile DNA Amplification - Final 027 Presumptive NEGATIVE Toxigenic C.diff NEGATIVE Assess/Plan/Problems-Billing Assessment:
[2019-05-20] MEDS ORDERED: Diltiazem 125 mg in 125 mL D5W PREMIX (continuous infusion) IV SCH (20:00)
[2019-05-20 20:34] LABS: Calcium 8.1 mg/dL (8.6-10.3); EGFR African American 25.9 (>60); EGFR Non-African American 21.4 (>60); Potassium 3.9 mmol/L (3.5-5.0)
--- NOTE | 2019-05-20 22:48 | PN ---
Progress Note - Progress Note Date of Service: 05/20/19 SOAP: Subjective: Pt seen and examined. D/w nursing staff earlier- no abdo pain at that time. A fib now on Cardizem. Remains on Levophed. No A-line Objective: Temp Pulse Resp BP Pulse Ox 99.3 F 115 27 109/64 93 05/20/19 20:45 05/20/19 21:00 05/20/19 21:00 05/20/19 21:00 05/20/19 21:00 oriented to person, place tachypneic, abdo: soft/ ND/ tender at LLQ on deep palpation. no rebound. Remainder of abdo exam benign Rectal tube: biliouos, non-bloody, watery output labs noted Assessment: Septic shock, E coli bacteremia. Unknown etiology; abdominal exam unchanged and not remarkable DDx: UTI, Infectious colitis (w/translocation from bowel), ischemic colitis, pneumonia, gastroenteritis Plan: ABX support re image in am with PO contrast case d/w CCM
[2019-05-20] MEDS ORDERED: Succinylcholine* 20 MG/ML 10 ML VIAL ONE ×2 (22:55→23:02)
[2019-05-20] MEDS ORDERED: Propofol* 100 ML ONE (23:00)
[2019-05-20] MEDS ORDERED: Etomidate* 2 MG/ML 20 ML VIAL (40 MG) ONE (23:02)
[2019-05-20] MEDS: Propofol* 100 ML IV SCH (23:06)
--- NOTE | 2019-05-20 23:57 | PN ---
Hospitalist Progress Note Date of Service: 05/20/19 Elective intubation requested by primary team for respiratory distress. etomidate for induction and succynocholine for paralysis. Used a laryngoscope and a size 8 ET tube with stylet. Patient was intubated on first attempt. The stylet was removed and cuff balloon was inflated. Appropriate ET tube confirmed by CO2 colometric indicator and symmetric breath sounds. The tube was secured at 23 cm at the lips.
[2019-05-21] MEDS: Chlorhexidine MOUTHWASH 0.12%* 15 ML UDC TOPICAL SCH ×6 (00:15→19:16)
[2019-05-21 00:49] LABS: BUN/Creatinine Ratio 22.9 (8-20); Calcium 7.9 mg/dL (8.6-10.3); EGFR African American 25.9 (>60); EGFR Non-African American 21.4 (>60); Potassium 3.7 mmol/L (3.5-5.0)
[2019-05-21] MEDS: metroNIDAZOLE IV 500 MG/100ML* 500 MG/100 ML BAG IVPB SCH ×3 (01:44→16:08)
[2019-05-21] MEDS ORDERED: SOD BICARB IV SCH (02:00)
[2019-05-21] MEDS ORDERED: [UNRECOGNIZED DRUG - OTHER] IV SCH (02:00)
[2019-05-21] MEDS ORDERED: Sodium Bicarbonate 8.4% IV* 150 MEQ in D5W 1000 ML BAG* 850 ML IV SCH ×2 (02:25→13:00)
[2019-05-21] MEDS: Norepinephrine 16MCG/ML IVPRE* 4,000 MCG/250 ML BAG IV SCH ×5 (03:50→22:52)
[2019-05-21 03:54] LABS: Hematocrit 34 % (35-47); Hemoglobin 11.2 g/dL (12.0-16.0); Mean Corpuscular HGB Conc 33 g/dL (31-36); Mean Corpuscular Hemoglobin 30 pg (27-31); Mean Corpuscular Volume 90 fL (80-97); Mean Platelet Volume 10.4 fL (7.4-10.4); Platelet Count 42 10^3/uL (150-450); Red Cell Distribution Width 16 % (10-15); White Blood Count 35.7 10^3/uL (3.5-10.8)
[2019-05-21 04:08] LABS: BUN/Creatinine Ratio 21.2 (8-20); Calcium 7.7 mg/dL (8.6-10.3); EGFR Non-African American 21.5 (>60); Potassium 3.4 mmol/L (3.5-5.0)
[2019-05-21 04:20] LABS: Burr Cells 1+
[2019-05-21 04:24] LABS: ABS Basophils 0.1 10^3/ul (0-0.2); ABS Eosinophils 1.7 10^3/ul (0-0.6); ABS Monocytes 1.4 10^3/ul (0-0.8); ABS Neutrophils 31.5 10^3/ul (1.5-7.7); Eosinophil % 4.7 %; Lymphocyte % 2.8 %
[2019-05-21] MEDS: ZOSYN 3.375 GM Q12H per EXTENDED INFUSION IVPB SCH ×4 (04:53→16:08)
[2019-05-21] MEDS: KCL 20 MEQ/100 ML IVPREMIX* 20 MEQ/100 ML BAG IV SCH ×3 (05:09→23:18)
[2019-05-21] MEDS: Propofol* 100 ML IV SCH ×3 (05:33→16:49)
[2019-05-21 08:20] LABS: Calcium 7.4 mg/dL (8.6-10.3); EGFR African American 26.4 (>60); EGFR Non-African American 21.8 (>60); Potassium 3.4 mmol/L (3.5-5.0)
[2019-05-21] MEDS: NS 0.9% 1000 ML** 1,000 ML IV SCH (08:48)
[2019-05-21] MEDS ORDERED: Pantoprazole IV* 40 MG IV SCH (09:00)
--- NOTE | 2019-05-21 10:16 | ECHO ---
*[facility]* [place] [address] Fax #: [phone] Transthoracic Echocardiogram Patient: Shila Fortune : 1940 Study Date: 05/21/2019 Age: 78 Gender: F HR: 95 bpm Height: 62 in /157.5 cm BSA: 1.73 m^2 Weight: 146.7 lb /66.7 kg BMI: 26.9 kg/m^2 *Processing Technologist: * Awilda Bran [facility] *Referring Physician: * Renee Dempsey *Reading Physician: * Triston Onofre MD Indications: Bacteremia. History: Coronary artery disease. Labs, prior tests, procedures, and surgery: Coronary artery bypass grafting. Conclusions Summary: - Left ventricle: Systolic function is normal. The estimated ejection fraction is 55-60%. Wall motion is normal; there are no regional wall motion abnormalities. - Right ventricle: Systolic function is normal. - Mitral valve: There is no significant regurgitation. - Aortic valve: There is no evidence of stenosis. - Tricuspid valve: There is trace to mild regurgitation. - Pulmonary arteries: Systolic pressure is mildly increased. - Study data: No prior study is available for comparison. Study data: Transthoracic echocardiogram. Procedure: Transthoracic echocardiography was performed. Image quality was good. Complete 2D, spectral Doppler, and color flow Doppler. Location: ICU Patient status: Inpatient. Patient room number: 3. No prior study is available for comparison. Rhythm: Normal sinus rhythm. Findings Left ventricle: The cavity size is at the lower limits of normal. Wall thickness is mildly increased. Systolic function is normal. The estimated ejection fraction is 55-60%. Wall motion is normal; there are no regional wall motion abnormalities. There is no consistent Doppler evidence of clinically significant diastolic dysfunction. Right ventricle: The cavity size is normal. Systolic function is normal. Left atrium: The atrium is mildly to moderately dilated. Right atrium: The atrium is normal in size. Mitral valve: The leaflets are mildly thickened. There is no evidence of a vegetation. There is no evidence of stenosis. There is no significant regurgitation. Aortic valve: The valve is trileaflet. The leaflets are normal thickness. There is no evidence of a vegetation. There is no evidence of stenosis. There is no significant regurgitation. Tricuspid valve: The leaflets are normal thickness. There is no evidence of a vegetation. There is no evidence of stenosis. There is trace to mild regurgitation. Pulmonic valve: The leaflets are normal thickness. There is no evidence of a vegetation. There is no evidence of stenosis. There is mild regurgitation. Aorta: The aortic root appears normal. Pericardium: There is no significant pericardial effusion. Pulmonary arteries: The main pulmonary artery is normal-sized. Systolic pressure is mildly increased. Systemic veins: Inferior vena cava: The vessel is dilated. There is (< 50%) respiratory change in the IVC dimension. Measurements Left ventricle Value Ref Aortic valve continued Value Ref FREDI, LAX 3.8 cm 3.8 - 5.2 Peak v, S 1.6 m/sec ----- ESD, LAX 2.6 cm 2.2 - 3.5 VTI, S 28.4 cm ----- FS, LAX 31 % 27 - 45 Mean grad, S 4.9 mm Hg ----- PW, ED, LAX (H) 1.1 cm 0.6 - 0.9 Peak grad, S 10.2 mm Hg ----- E', lat naa, TDI (L) 7.0 cm/sec >=10.0 LVOT/AV, VTI ratio 0.81 - ---- E/e', lat naa, 10 TDI Mitral valve Value Ref E', med naa, TDI (L) 6.0 cm/sec >=7.0 Peak E 0.71 m/sec - ---- E/e', med naa, 12 Peak A 0.85 m/sec ---- - TDI Decel time 216 ms ----- E', avg, TDI 6.5 cm/sec Peak grad, D 2.0 mm Hg ---- - E/e', avg, TDI 11 <=14 Peak E/A ratio 0.83 - ---- LVOT Value Ref Pulmonic valve Value Ref Peak paulina, S 1.26 m/sec Peak v, S 0.94 m/sec ----- VTI, S 22.9 cm Peak grad, S 3.5 mm Hg ----- Peak grad, S 6 mm Hg Mean grad, S 3 mm Hg Tricuspid valve Value Ref TR peak v 2.64 m/sec <=2.8 Ventricular septum Value Ref Peak RV-RA grad, S 28 mm Hg ----- IVS, ED (H) 1.2 cm 0.6 - 0.9 Aortic root Value Ref Right ventricle Value Ref Root diam 2.5 cm <3.9 FREDI, LAX 2.8 cm FREDI major ax, A4C (L) 3.0 cm 5.9 - 8.3 Ascending aorta Value Ref Pressure, S 36 mm Hg AAo AP diam, S 3.2 cm ----- Left atrium Value Ref Aortic arch Value Ref AP dim, ES (H) 4.30 cm 2.70 - Arch diam 2.7 cm ----- 3.80 ML dim, A4C 3.8 cm Decending aorta Value Ref SI dim, A4C 6.1 cm Amrik peak paulina 0.6 m/sec ----- Vol/bsa, ES, 2-p (H) 45 ml/m^2 16 - 34 Pulmonary artery Value Ref Right atrium Value Ref Pressure, S 32.5 mm Hg ----- SI dim, ES 5.2 cm 3.4 - 5.3 ML dim, ES, A4C 4.0 cm 2.6 - 4.4 Inferior vena cava Value Ref Estimated RAP 8 mm Hg Diam 2.2 cm ----- Aortic valve Value Ref Naa diam, ED 2.0 cm Naa diam/bsa, ED 1.2 cm/m^2 Legend: (L) and (H) remigio values outside specified reference range. Prepared and electronically signed by Triston Onofre MD 05/21/2019 10:16
[2019-05-21] MEDS: Pantoprazole IV* 40 MG IV SCH (11:16)
--- NOTE | 2019-05-21 12:10 | PN ---
Progress Note - Progress Note Date of Service: 05/21/19 SOAP: Subjective: Pt in ICU bed intubated [] Objective: Intake & Output 05/19/19 05/20/19 05/21/19 05/22/19 06:59 06:59 06:59 06:59 Intake Total 5148 3903 1542.9 Output Total 308 766 75 Balance 4840 3137 1467.9 Weight 147 lb 7.828 oz 151 lb 4.417 oz Intake: IV Fluids 4707 2271 682.9 D5W 06/14 NS 584 NS 2617 1687 573.9 zosyn 109 IVPB 358 1038 391 Calcium 268 120 KCl 122 109 163 Potassium 225 flagyl 109 323 108 zosyn 127 113 Medicated IV 83 594 469 CC - Norepinephrine/ 83 433 372 Levophed CC - Propofol/Diprivan 70 97 cardizem 91 Output: [place] 308 766 75 Other: Date of Last Bowel 05/20/19 Movement # Bowel Movements 6 Estimated Stool Amount Small Vital Signs Temp 100.8 F 05/21/19 11:00 Pulse 77 05/21/19 11:00 Resp 25 05/21/19 09:57 BP 94/53 05/21/19 11:00 Pulse Ox 99 05/21/19 11:00 Rectal Tube with dark bilious output [] Gen: Intubated and Sedated Abd: soft, non distended Rectal Tube: dark bilious output Assessment: Septic shock, e coli bacteremia, ? etiology. DDX UTI, Colitis ( infectious vs ischemic), gastroenteritis [] Plan: CT with oral contrast later today. Continue ABX, ICU management []
--- NOTE | 2019-05-21 12:37 | PN ---
Date of Service: 05/21/19 Critical Care Services: Intubated and sedated on levophed with colitis on CT. Vital Signs: Temp Pulse Resp BP SpO2 FiO2 38.3 C 76 26 99/50 99 40 05/21/19 12:15 05/21/19 12:15 05/21/19 12:00 05/21/19 12:15 05/21/19 12:15 05/21 12:00 Physical Exam: Gen: appears pink and well perfused, surprisingly non-toxic for the scenario. HEENT: NCAT, PERRL, intubated Lungs: rales Cardiac: S1S2 regular Abdomen: soft, mild dist, obese, +BS Extremities: trace edema Neuro: moves ext, rouses through sedation Fluid Balance (Past 24 Hours): I= O= Net Intake & Output 05/19/19 05/20/19 05/21/19 05/22/19 06:59 06:59 06:59 06:59 Intake Total 5148 3903 1542.9 Output Total 308 766 175 Balance 4840 3137 1367.9 Weight 66.9 kg 68.618 kg Intake: IV Fluids 4707 2271 682.9 D5W 1/ NS 584 NS 2617 1687 573.9 zosyn 109 IVPB 358 1038 391 Calcium 268 120 KCl 122 109 163 Potassium 225 flagyl 109 323 108 zosyn 127 113 Medicated IV 83 594 469 CC - Norepinephrine/ 83 433 372 Levophed CC - Propofol/Diprivan 70 97 cardizem 91 Output: [place] 308 766 175 Other: Date of Last Bowel 05/20/19 Movement # Bowel Movements 6 Estimated Stool Amount Small Labs: Laboratory Results - last 24 hr 05/20/19 05/20/19 05/20/19 11:43 16:33 20:07 WBC 26.9 H RBC 3.78 Hgb 11.3 L Hct 35 MCV 91 MCH 30 MCHC 33 RDW 16 H Plt Count 42 L MPV 9.7 Neut % (Auto) 79.4 Lymph % (Auto) 3.7 [place] % (Auto) 4.7 Eos % (Auto) 11.9 Baso % (Auto) 0.3 Absolute Neuts (auto) 21.3 H Absolute Lymphs (auto) 1.0 Absolute Monos (auto) 1.3 H Absolute Eos (auto) 3.2 H Absolute Basos (auto) 0.1 Absolute Nucleated RBC 0.0 Immature Gran % 10.0 H Neutrophils % 66.0 Band Neutrophils % 10.0 H Lymphocytes % 15.0 Monocytes % 9.0 Eosinophils % Nucleated RBC % 0.0 Toxic Granulation Dohle Bodies Platelet Morphology Large Normal RBC Morphology Not Reportable Anisocytosis Lopez Cells 1+ Patient Temperature ABG pH ABG pH (Temp Correct) ABG pCO2 ABG pCO2 (Temp Corrct ABG pO2 ABG pO2 (Temp Correct ABG HCO3 ABG O2 Saturation ABG Base Excess Respiration Rate O2 Delivery Device Ventilator Type Vent Mode FiO2 Inspiratory Time PEEP Pressure Support Pressure Control EPAP IPAP BiPAP Sodium 139 138 Potassium 3.8 3.9 Chloride 113 H 112 H Carbon Dioxide 14 L* 15 L Anion Gap 12 H 11 BUN 49 H 49 H Creatinine 2.24 H 2.23 H Est GFR ( Amer) 25.7 25.9 Est GFR (Non-Af Amer) 21.3 21.4 BUN/Creatinine Ratio 21.9 H 22.0 H Glucose 144 H 157 H Calcium 7.6 L 8.1 L 05/20/19 05/21/19 05/21/19 22:45 00:20 01:25 WBC RBC Hgb Hct MCV MCH MCHC RDW Plt Count MPV Neut % (Auto) Lymph % (Auto) [place] % (Auto) Eos % (Auto) Baso % (Auto) Absolute Neuts (auto) Absolute Lymphs (auto) Absolute Monos (auto) Absolute Eos (auto) Absolute Basos (auto) Absolute Nucleated RBC Immature Gran % Neutrophils % Band Neutrophils % Lymphocytes % Monocytes % Eosinophils % Nucleated RBC % Toxic Granulation Dohle Bodies Platelet Morphology Normal RBC Morphology Anisocytosis Lopez Cells Patient Temperature Not Reportable ABG pH 7.22 L 7.32 L ABG pH (Temp Correct) Not Reportable ABG pCO2 35 26 L ABG pCO2 (Temp Corrct Not Reportable ABG pO2 75 L 297 H ABG pO2 (Temp Correct Not Reportable ABG HCO3 15.1 L 16.4 L ABG O2 Saturation 97.3 99.0 H ABG Base Excess -12.5 L -11.0 L Respiration Rate Not Reportable O2 Delivery Device n/c Ventilator Type Not Reportable Vent Mode Not Reportable FiO2 70 Inspiratory Time Not Reportable PEEP Not Reportable Pressure Support Not Reportable Pressure Control Not Reportable EPAP Not Reportable IPAP Not Reportable BiPAP Not Reportable Sodium 138 Potassium 3.7 Chloride 112 H Carbon Dioxide 15 L Anion Gap 11 BUN 51 H Creatinine 2.23 H Est GFR ( Amer) 25.9 Est GFR (Non-Af Amer) 21.4 BUN/Creatinine Ratio 22.9 H Glucose 168 H Calcium 7.9 L 05/21/19 05/21/19 05/21/19 03:34 03:34 07:52 WBC 35.7 H RBC 3.80 Hgb 11.2 L Hct 34 L MCV 90 MCH 30 MCHC 33 RDW 16 H Plt Count 42 L MPV 10.4 Neut % (Auto) 88.4 Lymph % (Auto) 2.8 [place] % (Auto) 3.9 Eos % (Auto) 4.7 Baso % (Auto) 0.2 Absolute Neuts (auto) 31.5 H Absolute Lymphs (auto) 1.0 Absolute Monos (auto) 1.4 H Absolute Eos (auto) 1.7 H Absolute Basos (auto) 0.1 Absolute Nucleated RBC 0.0 Immature Gran % 8.0 Neutrophils % 82.0 Band Neutrophils % 8.0 Lymphocytes % 3.0 Monocytes % 5.0 Eosinophils % 2.0 Nucleated RBC % 0.0 Toxic Granulation 1+ Dohle Bodies Present Platelet Morphology Normal RBC Morphology Not Reportable Anisocytosis 1+ [place] Cells 1+ Patient Temperature ABG pH ABG pH (Temp Correct) ABG pCO2 ABG pCO2 (Temp Corrct ABG pO2 ABG pO2 (Temp Correct ABG HCO3 ABG O2 Saturation ABG Base Excess Respiration Rate O2 Delivery Device Ventilator Type Vent Mode FiO2 Inspiratory Time PEEP Pressure Support Pressure Control EPAP IPAP BiPAP Sodium 140 140 Potassium 3.4 L 3.4 L Chloride 112 H 111 Carbon Dioxide 14 L* 16 L Anion Gap 14 H 13 H BUN 47 H 46 H Creatinine 2.22 H 2.19 H Est GFR ( Amer) 26.0 26.4 Est GFR (Non-Af Amer) 21.5 21.8 BUN/Creatinine Ratio 21.2 H 21.0 H Glucose 138 H 167 H Calcium 7.7 L 7.4 L Studies: CXR with pulmonary edema, TLC at RA/SVC junction Nutrition: NPO for now Impression: 78 y/o female admitted with E coli septicemia secondary to apparent colitis deteriorated overnight with pulmonary edema on CXR and was intubated. Plan: Septic Shock /Colitis - WBC up to 35 today, febrile, broad Abx remain on board in the form of Zosyn and Flagyl. C. Diff was negative and E. Coli was dinero- sensitive. We are repeating CT abdomen today as D/W Dr. Mendoza. The abdominal exam is relatively unimpressive, the levo is actually coming down but will check lactate, last one was 24H ago though reassuring at that time. She is 10 liters positive balance, stop fluids. LEONARDO - expected, making urine, buffered with HCO3 gtt. Acute Hypoxic Respiratory Failure - CXR shows pulmonary edema,. ECHo says good muscle so I'm left with her bacteremia and atelectasis along with her volume overload to explain. Again DC IVF, maintain SaO2 in mid 90's, pressors to perfuse and may move to APRV to recruit more lung after the CT. Supportive care - DVT prophylaxis - thrombocytopenia expected with the septic shock, no clinical bleeding and DVT risk extremely high, will add subcut heparin and dose Q12H for now. Will check labs again this afternoon and integrate with exam, CT, lactate and hemodynamics. D/W at bedside. Critical Care Time: 40 minutes
[2019-05-21 15:56] LABS: Calcium 7.2 mg/dL (8.6-10.3)
[2019-05-21 16:02] LABS: BUN/Creatinine Ratio 19.6 (8-20); EGFR African American 27.1 (>60); EGFR Non-African American 22.4 (>60)
[2019-05-21 20:39] LABS: BUN/Creatinine Ratio 19.9 (8-20); Calcium 7.2 mg/dL (8.6-10.3); EGFR African American 27.6 (>60); EGFR Non-African American 22.8 (>60); Potassium 2.9 mmol/L (3.5-5.0)
[2019-05-21] MEDS ORDERED: KCL 20 MEQ/100 ML IVPREMIX* 20 MEQ/100 ML BAG IV SCH (22:00)
[2019-05-22] MEDS: KCL 20 MEQ/100 ML IVPREMIX* 20 MEQ/100 ML BAG IV SCH (00:29)
[2019-05-22] MEDS: Chlorhexidine MOUTHWASH 0.12%* 15 ML UDC TOPICAL SCH ×6 (00:30→20:30)
[2019-05-22] MEDS: metroNIDAZOLE IV 500 MG/100ML* 500 MG/100 ML BAG IVPB SCH ×2 (00:30→08:17)
[2019-05-22] MEDS: Propofol* 100 ML IV SCH ×4 (00:39→18:07)
[2019-05-22 02:23] LABS: BUN/Creatinine Ratio 19.2 (8-20); Calcium 7.1 mg/dL (8.6-10.3); EGFR Non-African American 23.2 (>60); Potassium 3.8 mmol/L (3.5-5.0)
[2019-05-22 06:11] LABS: Hematocrit 29 % (35-47); Hemoglobin 10.1 g/dL (12.0-16.0); Mean Corpuscular HGB Conc 35 g/dL (31-36); Mean Corpuscular Hemoglobin 31 pg (27-31); Mean Corpuscular Volume 88 fL (80-97); Mean Platelet Volume 10.7 fL (7.4-10.4); Platelet Count 36 10^3/uL (150-450); Red Cell Distribution Width 16 % (10-15); White Blood Count 15.9 10^3/uL (3.5-10.8)
[2019-05-22 06:15] LABS: ALT 17 U/L (7-52); AST 25 U/L (13-39); Albumin 2.2 g/dL (3.2-5.2); Alkaline Phosphatase 176 U/L (34-104); Anion Gap 7 mmol/L (2-11); BUN/Creatinine Ratio 19.5 (8-20); Blood Urea Nitrogen 39 mg/dL (6-24); CO2 Carbon Dioxide 21 mmol/L (22-32); Calcium 7.2 mg/dL (8.6-10.3); Chloride 110 mmol/L (101-111); EGFR African American 29.3 (>60); EGFR Non-African American 24.2 (>60); Globulin 2.2 g/dL (2-4); Glucose 154 mg/dL (70-100); Magnesium 1.8 mg/dL (1.9-2.7); Potassium 3.3 mmol/L (3.5-5.0); Sodium 138 mmol/L (135-145); Total Protein 4.4 g/dL (6.4-8.9)
[2019-05-22 06:19] LABS: Troponin I 1.42 ng/mL (<0.03)
[2019-05-22 06:53] LABS: ABS Eosinophils 0.3 10^3/ul (0-0.6); ABS Monocytes 0.5 10^3/ul (0-0.8)
[2019-05-22] MEDS: Norepinephrine 16MCG/ML IVPRE* 4,000 MCG/250 ML BAG IV SCH ×2 (07:11→16:51)
[2019-05-22] MEDS ORDERED: Potassium Phosphate IV* 30 MMOLE in NS 0.9% 250 ML* 250 ML IVPB ONE (07:15)
[2019-05-22] MEDS: Pantoprazole IV* 40 MG IV SCH (08:17)
[2019-05-22] MEDS ORDERED: Magnesium Sulfate 2 GM IV* 2 GM/50 ML BAG IVPB ONE (09:56)
[2019-05-22] MEDS ORDERED: Calcium Gluconate INJ* 2 GM in NS 0.9% 100 ML* 100 ML IV ONE (10:25)
[2019-05-22] MEDS ORDERED: Digoxin IV* 0.5 MG/2 ML AMP (0.25 MG/ML) IV SLOW PU ONE (11:41)
[2019-05-22] MEDS: ZOSYN 3.375 GM Q12H per EXTENDED INFUSION IVPB SCH ×4 (11:42→21:44)
--- NOTE | 2019-05-22 12:03 | PN ---
Date of Service: 05/22/19 Critical Care Services: Looks better this AM with levo down and FIO2 down as well Vital Signs: Temp Pulse Resp BP SpO2 FiO2 37.4 C 87 18 113/60 96 30 05/22/19 11:00 05/22/19 11:00 05/22/19 11:00 05/22/19 11:00 05/22/19 11:00 05/22 09:45 Physical Exam: Gen: well perfused, NAD HEENT: NCAT, PERRL, intubated Lungs: coarse entry bilat Cardiac: S1S2 regular Abdomen: soft, NT, ND, +BS Extremities: trace edema Neuro: sedated, moves ext spont Fluid Balance (Past 24 Hours): I= O= Net Intake & Output 05/20/19 05/21/19 05/22/19 05/23/19 06:59 06:59 06:59 06:59 Intake Total 5148 3903 4546.9 Output Total 581 042 9345 205 Balance 4840 3137 2908.9 -205 Weight 66.9 kg 68.618 kg 65.5 kg Intake: IV Fluids 4707 2271 2264.9 Bicarb 1318 D5W 1/2 NS 584 NS 2617 1687 837.9 zosyn 109 IVPB 358 1038 1051 Calcium 268 120 KCl 122 109 487 Potassium 225 flagyl 109 323 218 zosyn 127 113 226 Medicated IV 83 594 1231 CC - Norepinephrine/ 83 433 863 Levophed CC - Propofol/Diprivan 70 368 cardizem 91 Output: NG Tube Drainage Amount 100 [place] 308 766 838 205 Liquid Stool 700 Other: Date of Last Bowel 05/20/19 Movement # Bowel Movements 6 Estimated Stool Amount Small Labs: Laboratory Results - last 24 hr 05/19/19 05/20/19 05/21/19 22:24 11:43 12:51 WBC RBC Hgb Hct MCV MCH MCHC RDW Plt Count MPV Neut % (Auto) Lymph % (Auto) [place] % (Auto) Eos % (Auto) Baso % (Auto) Absolute Neuts (auto) Absolute Lymphs (auto) Absolute Monos (auto) Absolute Eos (auto) Absolute Basos (auto) Absolute Nucleated RBC Immature Gran % Neutrophils % Band Neutrophils % Lymphocytes % Monocytes % Eosinophils % Nucleated RBC % Toxic Granulation Dohle Bodies Normal RBC Morphology Anisocytosis Hem Pathologist Commnt Sodium Potassium Chloride Carbon Dioxide Anion Gap BUN Creatinine Est GFR ( Amer) Est GFR (Non-Af Amer) BUN/Creatinine Ratio Glucose Lactic Acid 2.6 H* Calcium Ionized Calcium Phosphorus Magnesium Total Bilirubin AST ALT Alkaline Phosphatase Troponin I Total Protein Albumin Globulin Albumin/Globulin Ratio 05/21/19 05/21/19 05/22/19 15:02 20:17 01:50 WBC RBC Hgb Hct MCV MCH MCHC RDW Plt Count MPV Neut % (Auto) Lymph % (Auto) [place] % (Auto) Eos % (Auto) Baso % (Auto) Absolute Neuts (auto) Absolute Lymphs (auto) Absolute Monos (auto) Absolute Eos (auto) Absolute Basos (auto) Absolute Nucleated RBC Immature Gran % Neutrophils % Band Neutrophils % Lymphocytes % Monocytes % Eosinophils % Nucleated RBC % Toxic Granulation Dohle Bodies Normal RBC Morphology Anisocytosis Hem Pathologist Commnt Sodium 136 138 137 Potassium 3.0 L 2.9 L 3.8 Chloride 108 110 108 Carbon Dioxide 18 L 19 L 20 L Anion Gap 10 9 9 BUN 42 H 42 H 40 H Creatinine 2.14 H 2.11 H 2.08 H Est GFR ( Amer) 27.1 27.6 28.0 Est GFR (Non-Af Amer) 22.4 22.8 23.2 BUN/Creatinine Ratio 19.6 19.9 19.2 Glucose 150 H 146 H 170 H Lactic Acid Calcium 7.2 L 7.2 L 7.1 L Ionized Calcium Phosphorus Magnesium Total Bilirubin AST ALT Alkaline Phosphatase Troponin I Total Protein Albumin Globulin Albumin/Globulin Ratio 05/22/19 05/22/19 05/22/19 05:40 05:40 05:40 WBC 15.9 H RBC 3.30 L Hgb 10.1 L Hct 29 L MCV 88 MCH 31 MCHC 35 RDW 16 H Plt Count 36 L MPV 10.7 H Neut % (Auto) Not Reportable Lymph % (Auto) Not Reportable [place] % (Auto) Not Reportable Eos % (Auto) Not Reportable Baso % (Auto) Not Reportable Absolute Neuts (auto) 14.0 H Absolute Lymphs (auto) 1.0 Absolute Monos (auto) 0.5 Absolute Eos (auto) 0.3 Absolute Basos (auto) 0.0 Absolute Nucleated RBC 0.0 Immature Gran % 6.0 Neutrophils % 82.0 Band Neutrophils % 6.0 Lymphocytes % 6.0 Monocytes % 4.0 Eosinophils % 2.0 Nucleated RBC % 0.0 Toxic Granulation 1+ Dohle Bodies Present Normal RBC Morphology Not Reportable Anisocytosis 1+ Hem Pathologist Commnt Sodium 138 Potassium 3.3 L Chloride 110 Carbon Dioxide 21 L Anion Gap 7 BUN 39 H Creatinine 2.00 H Est GFR ( Amer) 29.3 Est GFR (Non-Af Amer) 24.2 BUN/Creatinine Ratio 19.5 Glucose 154 H Lactic Acid Calcium 7.2 L Ionized Calcium 1.03 L Phosphorus < 1.0 L* Magnesium 1.8 L Total Bilirubin 1.00 AST 25 ALT 17 Alkaline Phosphatase 176 H Troponin I 1.42 H* Total Protein 4.4 L Albumin 2.2 L Globulin 2.2 Albumin/Globulin Ratio 1.0 05/22/19 05:40 WBC RBC Hgb Hct MCV MCH MCHC RDW Plt Count MPV Neut % (Auto) Lymph % (Auto) [place] % (Auto) Eos % (Auto) Baso % (Auto) Absolute Neuts (auto) Absolute Lymphs (auto) Absolute Monos (auto) Absolute Eos (auto) Absolute Basos (auto) Absolute Nucleated RBC Immature Gran % Neutrophils % Band Neutrophils % Lymphocytes % Monocytes % Eosinophils % Nucleated RBC % Toxic Granulation Dohle Bodies Normal RBC Morphology Anisocytosis Hem Pathologist Commnt Sodium Potassium Chloride Carbon Dioxide Anion Gap BUN Creatinine Est GFR ( Amer) Est GFR (Non-Af Amer) BUN/Creatinine Ratio Glucose Lactic Acid 1.2 Calcium Ionized Calcium Phosphorus Magnesium Total Bilirubin AST ALT Alkaline Phosphatase Troponin I Total Protein Albumin Globulin Albumin/Globulin Ratio Nutrition: Plan on TF for tomorrow if all continues to go well. Impression: 78 y/o female with severe colitis and secondary E Coli septicemia complicated by septic shock and acute hypoxic respiratory failure now improving. Plan: Septic Shock - resolving - E. Coli septicemia on appropriate Abx with WBC coming down substantially from yesterday's peak at 35. Levophed also coming down substantially at les than half the peak dose of yesterday. Making urine, Cr stable. CT as noted. Acute Hypoxic Respiratory Failure - I ryann a troponin this Am suspicious that her CHF on CXR with a pretty normal ECHO may have a bit of demand ischemia. The troponin is consistent with just that and will restart her home CAD Rx as soon as PO is possible. She seems to have cooled down today with positive balance and decreasing FIO2 very consistent with resolving demand ischemia. We will let her rest today and look at extubation for later in the week. LEONARDO - stable in positive balance, no lasix today, just sit, aiming I=O to a little positive. Supportive care - heparin for DVT prophylaxis at attenuated dose for thrombocytopenia, hold heparin below 20K platelet count. D/W at bedside. Critical Care Time: 40 minutes
[2019-05-22] MEDS: Heparin VIAL(*) 5000 UNITS/ML VIAL (FIVE THOUSAND) SUBCUT SCH ×2 (12:18→20:30)
--- NOTE | 2019-05-22 12:59 | PN ---
Progress Note - Progress Note Date of Service: 05/22/19 SOAP: Subjective: Pt sedated and intubated in ICU bed, and son at bedside [] Objective: Vital Signs Temp 99.3 F 05/22/19 12:00 Pulse 94 05/22/19 12:00 Resp 22 05/22/19 12:47 BP 108/66 05/22/19 12:00 Pulse Ox 95 05/22/19 12:00 Intake & Output 05/21/19 05/22/19 05/22/19 18:59 06:59 18:59 Intake Total 1542.9 3004 Output Total 440 1198 265 Balance 1102.9 1806 -265 Weight 144 lb 6.444 oz Intake: IV Fluids 682.9 1582 Bicarb 1318 NS 573.9 264 zosyn 109 IVPB 391 660 Calcium 120 KCl 163 324 flagyl 108 110 zosyn 226 Medicated IV 469 762 CC - Norepinephrine/ 372 491 Levophed CC - Propofol/Diprivan 97 271 Output: NG Tube Drainage Amount 100 [place] 440 398 265 Liquid Stool 700 WBC 05/19/19 05/19/19 05/20/19 13:19 19:29 04:55 WBC 21.1 10^3/uL H 10^3/uL 8.8 10^3/uL 10^3/uL 17.9 10^3/uL H 10^3/uL (3.5-10.8) (3.5-10.8) (3.5-10.8) 05/20/19 05/21/19 05/22/19 11:43 03:34 05:40 WBC 26.9 10^3/uL H 10^3/uL 35.7 10^3/uL H 10^3/uL 15.9 10^3/uL H 10^3/uL (3.5-10.8) (3.5-10.8) (3.5-10.8) PEX Gen: intubated and sedated Abd: soft, non distended Ext: calves soft [] Assessment: E Coli septicemia responding well to current Abx Regimen, CT scan Abd-Pelvis 05/21 showed no source. mentions recent consumption of [place] meat and also their use of well water while living [place], questioning possible exposure. He suggested having their water checked. [] Plan: No Surgical issues, will sign off. Please call if needed. Above D/W Dr Mendoza. []
[2019-05-22 15:57] LABS: Albumin 2.1 g/dL (3.2-5.2); Calcium 7.7 mg/dL (8.6-10.3); Magnesium 2.3 mg/dL (1.9-2.7); Potassium 3.7 mmol/L (3.5-5.0)
[2019-05-22 16:03] LABS: Albumin/Globulin Ratio 0.9 (1-3); EGFR African American 31.9 (>60); EGFR Non-African American 26.3 (>60); Globulin 2.3 g/dL (2-4); Phosphorus 2.9 mg/dL (2.5-5.0); Total Protein 4.4 g/dL (6.4-8.9)
[2019-05-22 22:00] LABS: Phosphorus < 1.0 mg/dL (2.5-5.0)
[2019-05-23] MEDS: Chlorhexidine MOUTHWASH 0.12%* 15 ML UDC TOPICAL SCH ×6 (00:49→22:18)
[2019-05-23] MEDS: Propofol* 100 ML IV SCH ×3 (02:01→22:13)
[2019-05-23 05:24] LABS: BUN/Creatinine Ratio 21.4 (8-20); Calcium 7.2 mg/dL (8.6-10.3); EGFR African American 28.3 (>60); EGFR Non-African American 23.4 (>60); Magnesium 2.3 mg/dL (1.9-2.7); Phosphorus 3.1 mg/dL (2.5-5.0); Potassium 3.3 mmol/L (3.5-5.0)
[2019-05-23 07:06] LABS: Hematocrit 29 % (35-47); Hemoglobin 9.9 g/dL (12.0-16.0); Mean Corpuscular HGB Conc 35 g/dL (31-36); Mean Corpuscular Hemoglobin 31 pg (27-31); Mean Corpuscular Volume 89 fL (80-97); Mean Platelet Volume 10.2 fL (7.4-10.4); Platelet Count 42 10^3/uL (150-450); Red Blood Count 3.23 10^6 /uL (3.70-4.87); Red Cell Distribution Width 16 % (10-15)
[2019-05-23 07:07] LABS: ABS Eosinophils 0.2 10^3/ul (0-0.6); ABS Lymphocytes 0.9 10^3/ul (1.0-4.8); ABS Neutrophils 8.9 10^3/ul (1.5-7.7); Eosinophil % 1.9 %; Lymphocyte % 8.2 %
[2019-05-23] MEDS: Pantoprazole IV* 40 MG IV SCH (07:45)
[2019-05-23] MEDS: Heparin VIAL(*) 5000 UNITS/ML VIAL (FIVE THOUSAND) SUBCUT SCH ×2 (07:45→20:50)
[2019-05-23] MEDS: ZOSYN 3.375 GM Q12H per EXTENDED INFUSION IVPB SCH ×4 (09:03→22:18)
[2019-05-23] MEDS ORDERED: Furosemide IV* 10 MG/ML 10 ML VIAL (100 MG) IV ONE (10:47)
[2019-05-23] MEDS ORDERED: Calcium Gluconate INJ* 2 GM in NS 0.9% 100 ML* 100 ML IV ONE (10:47)
--- NOTE | 2019-05-23 10:56 | PN ---
Date of Service: 05/23/19 Critical Care Services: No overnight events. Vital Signs: Temp Pulse Resp BP SpO2 FiO2 37.6 C 67 19 106/49 93 21 05/23/19 10:15 05/23/19 10:15 05/23/19 10:00 05/23/19 10:15 05/23/19 10:15 05/23 09:03 Physical Exam: Gen: Sedated HEENT: NCAT, PERRL, intubated Lungs: Coarse entry bilat Cardiac: S1S2 regular Abdomen: soft, NT, ND, +BS Extremities: +1 edema Neuro: sedated, moves all 4's spont Fluid Balance (Past 24 Hours): I= O= Net Intake & Output 05/21/19 05/22/19 05/23/19 05/24/19 06:59 06:59 06:59 06:59 Intake Total 3903 4546.9 1862.5 Output Total 766 1638 833 113 Balance 3137 2908.9 1029.5 -113 Weight 68.618 kg 65.5 kg 77.8 kg Intake: IV Fluids 2271 2264.9 1039.5 Bicarb 1318 Calcium 134 D5W 1/2 NS 584 Magnesium 61.4 NS 1687 837.9 329.1 Potassium Phosphate 278 flagyl 110 zosyn 109 127 IVPB 1038 1051 139 Calcium 268 120 KCl 109 487 Potassium 225 flagyl 323 218 zosyn 113 226 139 Medicated IV 594 1231 684 CC - Norepinephrine/ 433 863 361 Levophed CC - Propofol/Diprivan 70 368 323 cardizem 91 Output: NG Tube Drainage Amount 100 [place] 766 838 833 113 Liquid Stool 700 Labs: Laboratory Results - last 24 hr 05/22/19 05/22/19 05/22/19 05:40 15:24 17:38 WBC RBC Hgb Hct MCV MCH MCHC RDW Plt Count MPV Neut % (Auto) Lymph % (Auto) [place] % (Auto) Eos % (Auto) Baso % (Auto) Absolute Neuts (auto) Absolute Lymphs (auto) Absolute Monos (auto) Absolute Eos (auto) Absolute Basos (auto) Absolute Nucleated RBC Nucleated RBC % Sodium 138 140 Potassium 3.3 L 3.7 Chloride 110 111 Carbon Dioxide 21 L 21 L Anion Gap 7 8 BUN 39 H 39 H Creatinine 2.00 H 1.86 H Est GFR ( Amer) 29.3 31.9 Est GFR (Non-Af Amer) 24.2 26.3 BUN/Creatinine Ratio 19.5 21.0 H Glucose 154 H 127 H Calcium 7.2 L 7.7 L Ionized Calcium 1.10 L Phosphorus < 1.0 L* 2.9 Magnesium 1.8 L 2.3 Total Bilirubin 1.00 1.00 AST 25 22 ALT 17 16 Alkaline Phosphatase 176 H 236 H Troponin I 1.42 H* Total Protein 4.4 L 4.4 L Albumin 2.2 L 2.1 L Globulin 2.2 2.3 Albumin/Globulin Ratio 1.0 0.9 L 05/23/19 05/23/19 05/23/19 04:45 04:45 04:45 WBC 11.0 H RBC 3.23 L Hgb 9.9 L Hct 29 L MCV 89 MCH 31 MCHC 35 RDW 16 H Plt Count 42 L MPV 10.2 Neut % (Auto) 80.7 Lymph % (Auto) 8.2 [place] % (Auto) 8.8 Eos % (Auto) 1.9 Baso % (Auto) 0.4 Absolute Neuts (auto) 8.9 H Absolute Lymphs (auto) 0.9 L Absolute Monos (auto) 1.0 H Absolute Eos (auto) 0.2 Absolute Basos (auto) 0.0 Absolute Nucleated RBC 0.0 Nucleated RBC % 0.0 Sodium 141 Potassium 3.3 L Chloride 116 H Carbon Dioxide 19 L Anion Gap 6 BUN 44 H Creatinine 2.06 H Est GFR ( Amer) 28.3 Est GFR (Non-Af Amer) 23.4 BUN/Creatinine Ratio 21.4 H Glucose 116 H Calcium 7.2 L Ionized Calcium 1.09 L Phosphorus 3.1 Magnesium 2.3 Total Bilirubin AST ALT Alkaline Phosphatase Troponin I Total Protein Albumin Globulin Albumin/Globulin Ratio Nutrition: WIll start TF today if not extubated Impression: 78 y/o female with colitis and secondary E. Coli septicemia improving steadily. Plan: Acute Hypoxic Respiratory Failure - FIO2 down to 21% with SaO2 in mid 90s. Mechanics look good. Will move over to CPAP and SBT and evaluate for extubation off propofol. This should also improve her BP and facilitate some diuresis. Pressors are off. Septic Shock - resolved. Pressors off. Continue Abx for total 7 days for E. Coli septicemia. LEONARDO - Cr stable, mild hypervolemia, will diurese single dose lasix today as we evaluate for extubation CAD - demand ischemia clinically resolved, HD stable on low FIO2 with good clinical perfusion. critical care time 40 minutes
[2019-05-24] MEDS: Chlorhexidine MOUTHWASH 0.12%* 15 ML UDC TOPICAL SCH ×6 (03:12→20:50)
[2019-05-24 05:18] LABS: Hematocrit 28 % (35-47); Hemoglobin 9.4 g/dL (12.0-16.0); Mean Corpuscular HGB Conc 34 g/dL (31-36); Mean Corpuscular Hemoglobin 30 pg (27-31); Mean Corpuscular Volume 88 fL (80-97); Red Blood Count 3.12 10^6 /uL (3.70-4.87); Red Cell Distribution Width 16 % (10-15); White Blood Count 11.3 10^3/uL (3.5-10.8)
[2019-05-24 05:34] LABS: Albumin 2.1 g/dL (3.2-5.2); Albumin/Globulin Ratio 0.8 (1-3); BUN/Creatinine Ratio 26.1 (8-20); Calcium 7.9 mg/dL (8.6-10.3); EGFR Non-African American 21.5 (>60); Globulin 2.5 g/dL (2-4); Magnesium 2.2 mg/dL (1.9-2.7); Phosphorus 4.1 mg/dL (2.5-5.0); Potassium 3.3 mmol/L (3.5-5.0); Total Bilirubin 0.8 mg/dL (0.2-1.0); Total Protein 4.6 g/dL (6.4-8.9)
[2019-05-24 05:42] LABS: ABS Basophils 0.1 10^3/ul (0-0.2); ABS Eosinophils 0.1 10^3/ul (0-0.6); ABS Monocytes 1.2 10^3/ul (0-0.8); Eosinophil % 1.2 %; Lymphocyte % 8.7 %; Mean Platelet Volume 10.6 fL (7.4-10.4); Platelet Count 55 10^3/uL (150-450)
[2019-05-24] MEDS: Heparin VIAL(*) 5000 UNITS/ML VIAL (FIVE THOUSAND) SUBCUT SCH ×2 (09:45→20:50)
[2019-05-24] MEDS: Pantoprazole IV* 40 MG IV SCH (09:47)
[2019-05-24] MEDS: ZOSYN 3.375 GM Q12H per EXTENDED INFUSION IVPB SCH ×4 (09:55→22:07)
[2019-05-24] MEDS ORDERED: Furosemide IV* 10 MG/ML 10 ML VIAL (100 MG) IV ONE ×3 (10:36→18:00)
--- NOTE | 2019-05-24 11:09 | PN ---
Date of Service: 05/24/19 Critical Care Services: No new events overnight. Vital Signs: Temp Pulse Resp BP SpO2 FiO2 37.7 C 63 30 129/70 95 40 05/24/19 10:00 05/24/19 10:00 05/24/19 10:00 05/24/19 10:00 05/24/19 10:00 05/24 08:00 Physical Exam: Gen: NAD, sedated lightly HEENT: NCAT, intubated, PERRL Lungs: coarse entry, scant rhonchi Cardiac: S1S2 regular Abdomen: soft, NT, ND, +BS Extremities: trace edema Neuro: responsive on light sedation, grossly non-focal Fluid Balance (Past 24 Hours): I= O= Net Intake & Output 05/22/19 05/23/19 05/24/19 05/25/19 06:59 06:59 06:59 06:59 Intake Total 4546.9 1862.5 666.8 Output Total 4707 242 9125 195 Balance 2908.9 1029.5 -1936.2 -195 Weight 65.5 kg 77.8 kg 77.9 kg Intake: IV Fluids 2264.9 1039.5 502.2 Bicarb 1318 Calcium 134 131 Magnesium 61.4 NS 837.9 329.1 141.2 Potassium Phosphate 278 flagyl 110 zosyn 109 127 230 IVPB 1051 139 39 Calcium 120 39 KCl 487 flagyl 218 zosyn 226 139 Medicated IV 1231 684 125.6 CC - Norepinephrine/ 863 361 17 Levophed CC - Propofol/Diprivan 368 323 108.6 Output: NG Tube Drainage Amount 100 [place] 210 930 7522 195 Liquid Stool 700 Labs: Laboratory Results - last 24 hr 05/24/19 05/24/19 05:03 05:03 WBC 11.3 H RBC 3.12 L Hgb 9.4 L Hct 28 L MCV 88 MCH 30 MCHC 34 RDW 16 H Plt Count 55 L MPV 10.6 H Neut % (Auto) 79.1 Lymph % (Auto) 8.7 [place] % (Auto) 10.5 Eos % (Auto) 1.2 Baso % (Auto) 0.5 Absolute Neuts (auto) 9.0 H Absolute Lymphs (auto) 1.0 Absolute Monos (auto) 1.2 H Absolute Eos (auto) 0.1 Absolute Basos (auto) 0.1 Absolute Nucleated RBC 0.0 Nucleated RBC % 0.0 Sodium 143 Potassium 3.3 L Chloride 114 H Carbon Dioxide 21 L Anion Gap 8 BUN 58 H Creatinine 2.22 H Est GFR ( Amer) 26.0 Est GFR (Non-Af Amer) 21.5 BUN/Creatinine Ratio 26.1 H Glucose 168 H Calcium 7.9 L Phosphorus 4.1 Magnesium 2.2 Total Bilirubin 0.80 AST 17 ALT 11 Alkaline Phosphatase 227 H Total Protein 4.6 L Albumin 2.1 L Globulin 2.5 Albumin/Globulin Ratio 0.8 L Nutrition: Marion TF at 30cc/hr Impression: 78 y/o female with colitis and secondary E. Coli septicemia complicated by septic shock and respiratory failure now resolving. Plan: Acute Hypoxic Respiratory Failure - improving, SBT going fairly well, negative baalnce 2 liters, needs another dose of lasix and will try to get her extubated today. Holding diprivan. E. Coli septicemia - resolved - Abx to complete 7 days. Septic shock - resolved. Colitis - resolving, tolerating TF, moving bowels. Will move OGT to NGT in anticipation of extubation and possible delirium for a couple of days that might complicate her PO status. LEONARDO - stable. Thrombocytopenia - resolving. Cont subcut heparin Critical Care Time: 40 minutes
[2019-05-24] MEDS ORDERED: Calcium Gluconate INJ* 2 GM in NS 0.9% 100 ML* 100 ML IV ONE (11:12)
[2019-05-24] MEDS: Propofol* 100 ML IV SCH (21:11)
[2019-05-24] MEDS: Acetaminophen ADULT LIQ* 650 MG/20.3 ML UDC PO PRN (22:13)
[2019-05-25] MEDS: Chlorhexidine MOUTHWASH 0.12%* 15 ML UDC TOPICAL SCH ×3 (02:14→09:46)
[2019-05-25] MEDS: Acetaminophen ADULT LIQ* 650 MG/20.3 ML UDC PO PRN ×2 (03:58→14:06)
[2019-05-25 04:37] LABS: Albumin 2.2 g/dL (3.2-5.2); Albumin/Globulin Ratio 0.8 (1-3); BUN/Creatinine Ratio 28.5 (8-20); EGFR African American 27.1 (>60); EGFR Non-African American 22.4 (>60); Globulin 2.8 g/dL (2-4); Phosphorus 5.5 mg/dL (2.5-5.0); Potassium 3.3 mmol/L (3.5-5.0); Total Bilirubin 0.7 mg/dL (0.2-1.0)
[2019-05-25] MEDS ORDERED: traMADol TAB* 50 MG PO ONE (05:23)
[2019-05-25] MEDS: Heparin VIAL(*) 5000 UNITS/ML VIAL (FIVE THOUSAND) SUBCUT SCH ×2 (09:46→21:18)
[2019-05-25] MEDS ORDERED: Furosemide IV* 10 MG/ML 10 ML VIAL (100 MG) IV ONE (09:48)
[2019-05-25] MEDS: Pantoprazole IV* 40 MG IV SCH (09:48)
[2019-05-25] MEDS ORDERED: Magnesium Sulfate 2 GM IV* 2 GM/50 ML BAG IVPB ONE (09:49)
[2019-05-25] MEDS: ZOSYN 3.375 GM Q12H per EXTENDED INFUSION IVPB SCH ×4 (09:56→21:18)
--- NOTE | 2019-05-25 11:40 | PN ---
Date of Service: 05/25/19 Critical Care Services: Extubated on rounds this AM after improved SBT Vital Signs: Temp Pulse Resp BP SpO2 FiO2 36.9 C 58 27 151/70 98 40 05/25/19 10:01 05/25/19 10:01 05/25/19 10:01 05/25/19 10:01 05/25/19 10:40 05/25 10:40 Physical Exam: Gen: NAD, newly extubated HEENT: NCAT, PERRL Lungs: coarse entry, basilar crackles Cardiac: S1S2 regular Abdomen: soft, NT, ND, +BS Extremities: +1 edema, pressure sore bilateral buttocks, stage 1 approx 2 cm each Neuro: A&O, grossly non-focal Fluid Balance (Past 24 Hours): I= O= Net Intake & Output 05/23/19 05/24/19 05/25/19 05/26/19 06:59 06:59 06:59 06:59 Intake Total 1862.5 666.8 487 Output Total 833 2603 3255 265 Balance 1029.5 -1936.2 -2768 -265 Weight 77.8 kg 77.9 kg 73.8 kg Intake: IV Fluids 1039.5 502.2 139 Calcium 134 131 Magnesium 61.4 NS 329.1 141.2 102 Potassium Phosphate 278 flagyl 110 zosyn 127 230 37 IVPB 139 39 254 Calcium 39 131 zosyn 139 123 Medicated IV 684 125.6 94 CC - Norepinephrine/ 361 17 Levophed CC - Propofol/Diprivan 323 108.6 94 Output: Urine 175 [place] 833 2603 3080 265 Irrigation 0 Labs: Laboratory Results - last 24 hr 05/25/19 04:09 Sodium 146 H Potassium 3.3 L Chloride 113 H Carbon Dioxide 23 Anion Gap 10 BUN 61 H Creatinine 2.14 H Est GFR ( Amer) 27.1 Est GFR (Non-Af Amer) 22.4 BUN/Creatinine Ratio 28.5 H Glucose 187 H Calcium 8.0 L Phosphorus 5.5 H Magnesium 2.0 Total Bilirubin 0.70 AST 14 ALT 11 Alkaline Phosphatase 182 H Total Protein 5.0 L Albumin 2.2 L Globulin 2.8 Albumin/Globulin Ratio 0.8 L Studies: CXR with improving CHF, TLC a little deep, OK to use, will pull back. Nutrition: NGT advance to 60cc/hr and swallow evaluation, if passes, DC NGT Impression: 78 y/o female with E. COli septicemia secondary to primary colitis complicated by septic shock, LEONARDO and respiratory failure now serially improving. Extubated this AM. Plan: Acute Hypoxic Respiratory Failure - excellent SBT today, negative balance 5 liters last 48hrs, will diurese more today. Extubated now, on FM with comfortable WOB and good SaO2. E. Coli septicemia - resolved, Abx complete at 7 days Septic Shock - resolved LEONARDO - stable, expect to improve off PPV. Stage 1 pressure sore bilateral buttocks - OOB, emollients GI/DVT prophylaxis on board, swallow eval and OOB. Critical Care Time: 40 minutes
[2019-05-25] MEDS: KCL 20 MEQ/100 ML IVPREMIX* 20 MEQ/100 ML BAG IV SCH ×2 (11:41→14:03)
[2019-05-25] MEDS: Metolazone TAB* 5 MG PO SCH (21:18)
[2019-05-26 04:21] LABS: Hematocrit 31 % (35-47); Hemoglobin 10.1 g/dL (12.0-16.0); Mean Corpuscular HGB Conc 33 g/dL (31-36); Mean Corpuscular Hemoglobin 29 pg (27-31); Mean Corpuscular Volume 89 fL (80-97); Mean Platelet Volume 10.5 fL (7.4-10.4); Platelet Count 109 10^3/uL (150-450); Red Blood Count 3.47 10^6 /uL (3.70-4.87); Red Cell Distribution Width 16 % (10-15); White Blood Count 15.5 10^3/uL (3.5-10.8)
[2019-05-26 04:37] LABS: Albumin 2.5 g/dL (3.2-5.2); Albumin/Globulin Ratio 0.8 (1-3); BUN/Creatinine Ratio 33.2 (8-20); Calcium 8.1 mg/dL (8.6-10.3); EGFR African American 30.5 (>60); EGFR Non-African American 25.2 (>60); Magnesium 2.5 mg/dL (1.9-2.7); Phosphorus 4.7 mg/dL (2.5-5.0); Potassium 3.7 mmol/L (3.5-5.0); Total Bilirubin 0.6 mg/dL (0.2-1.0); Total Protein 5.5 g/dL (6.4-8.9)
[2019-05-26] MEDS ORDERED: Calcium Gluconate INJ* 2 GM in NS 0.9% 100 ML* 100 ML IV ONE (07:30)
[2019-05-26] MEDS: Chlorhexidine MOUTHWASH 0.12%* 15 ML UDC TOPICAL SCH (09:22)
[2019-05-26] MEDS: Heparin VIAL(*) 5000 UNITS/ML VIAL (FIVE THOUSAND) SUBCUT SCH ×2 (09:32→20:32)
[2019-05-26] MEDS: Pantoprazole IV* 40 MG IV SCH (09:32)
[2019-05-26] MEDS ORDERED: Furosemide IV* 10 MG/ML VIAL (40 MG) IV ONE (09:38)
[2019-05-26] MEDS: Metolazone TAB* 5 MG PO SCH ×2 (09:38→20:32)
--- NOTE | 2019-05-26 09:38 | PN ---
Date of Service: 05/26/19 Vital Signs: Temp Pulse Resp BP SpO2 FiO2 37.3 C 65 26 173/86 92 40 05/26/19 06:00 05/26/19 06:00 05/26/19 06:00 05/26/19 06:00 05/26/19 06:00 05/25 12:00 Physical Exam: Gen: HEENT: Lungs: Cardiac: Abdomen: Extremities: Neuro: Fluid Balance (Past 24 Hours): I= O= Net Intake & Output 05/24/19 05/25/19 05/26/19 05/27/19 06:59 06:59 06:59 06:59 Intake Total 666.8 487 2137 Output Total 2603 3255 3875 325 Balance -1936.2 -2768 -1738 -325 Weight 77.9 kg 73.8 kg 70 kg Intake: IV Fluids 502.2 139 432 Calcium 131 Magnesium 85 NS 141.2 102 194 Potassium Phosphate 85 zosyn 230 37 68 IVPB 39 254 557 Calcium 39 131 Magnesium 59 Potassium Phosphate 227 zosyn 123 271 Medicated IV 125.6 94 CC - Norepinephrine/ 17 Levophed CC - Propofol/Diprivan 108.6 94 Tube Feeding 1098 Tube Feeding Flush Amount 50 Output: Urine 175 [place] 2603 3080 3875 325 Irrigation 0 Other: # Bowel Movements 2 Estimated Stool Amount Medium Labs: Laboratory Results - last 24 hr 05/26/19 05/26/19 05/26/19 04:10 04:10 04:10 WBC 15.5 H RBC 3.47 L Hgb 10.1 L Hct 31 L MCV 89 MCH 29 MCHC 33 RDW 16 H Plt Count 109 L MPV 10.5 H Sodium 149 H Potassium 3.7 Chloride 115 H Carbon Dioxide 26 Anion Gap 8 BUN 64 H Creatinine 1.93 H Est GFR ( Amer) 30.5 Est GFR (Non-Af Amer) 25.2 BUN/Creatinine Ratio 33.2 H Glucose 220 H Calcium 8.1 L Ionized Calcium 1.09 L Phosphorus 4.7 Magnesium 2.5 Total Bilirubin 0.60 AST 13 ALT 11 Alkaline Phosphatase 176 H Total Protein 5.5 L Albumin 2.5 L Globulin 3.0 Albumin/Globulin Ratio 0.8 L Impression: 78 y/o female with colitis and secondary E. Coli septicemia complicated by septic shock and respiratory failure now resolving. Plan: Acute Hypoxic Respiratory Failure - improving, extubated well. Negative balance another 2.5 liters. Still some edema today and still plenty of BP, will diurese again. Needs OOB and PT. E. Coli septicemia - resolved - Abx to complete 7 days. Septic shock - resolved. Colitis - resolving, tolerating TF, moving bowels. NGT remains in place at goal until she passes a swallow and ramps up her calories. LEONARDO - slowly improving Thrombocytopenia - resolving. Cont subcut heparin.
[2019-05-26] MEDS: ZOSYN 3.375 GM Q12H per EXTENDED INFUSION IVPB SCH ×4 (10:22→22:25)
[2019-05-26] MEDS: hydrALAZINE IV* 20 MG/ML VIAL IV SLOW PU PRN ×2 (15:18→22:06)
[2019-05-26] MEDS: Acetaminophen ADULT LIQ* 650 MG/20.3 ML UDC PO PRN (15:19)
[2019-05-26] MEDS ORDERED: Morphine INJ* 4 MG/ML 1 ML SYRINGE (NEW SYRINGE VERSION) IV ONE (23:35)
[2019-05-26] MEDS ORDERED: Morphine INJ* 2 MG/ML 1 ML SYRINGE (TWO MG - NEW SYRINGE VERSION) IV ONE (23:35)
[2019-05-27] MEDS ORDERED: Morphine INJ* 2 MG/ML 1 ML SYRINGE (TWO MG - NEW SYRINGE VERSION) ONE (02:22)
[2019-05-27] MEDS ORDERED: Succinylcholine* 20 MG/ML 10 ML VIAL ONE (02:28)
[2019-05-27] MEDS ORDERED: Etomidate* 2 MG/ML 20 ML VIAL (40 MG) ONE (02:34)
[2019-05-27] MEDS ORDERED: Propofol* 100 ML ONE (02:51)
[2019-05-27] MEDS: Propofol* 100 ML IV SCH (03:00)
--- NOTE | 2019-05-27 03:08 | PN ---
Subjective Interval History: Patient intubated for mucus impaction. She has been unable to clear her secretions most of the night with multiple xr showing partial atelectasis of the right lung. Pt was on Bipap on high settings in attempt to open the lungs. She was stable for a few hours but eventually her sats dropped again. RSI conducted. Pt received 20 of etomidate and 100 of succhynocholine for adequate paralysis. Used a 7.5 ETT with a stylet. Pt intubated on 2nd attempt. She had a lot of thick viscous mucus obstructing the view. The stylet was removed and cuff balloon inflated. Appropriate endotracheal tube position confirmed via direct visualization of vocal cord passage and fogging of the tube. Tube secured at 23 at the lips. Her sats remained in the 80-70s post intubation. A stat Cxr showed complete atelectasis of the right lung. RT after multiple attempts was finally able to suction very thick mucus from her airway. Her sats improved. Next step would have been an emergent bronch but she is okay now. Objective Active Medications: Acetaminophen (Tylenol Adult Liq*) 650 mg PO Q6H PRN PRN Reason: Pain Last Admin: 05/26/19 15:19 Dose: 650 mg Chlorhexidine Gluconate (Peridex Mouth Wash 0.12%*) 15 ml SWISH SPIT Q4HR [facility] Heparin Sodium (Porcine) (Heparin Vial(*)) 5,000 units SUBCUT BID [facility] Last Admin: 05/26/19 20:32 Dose: 5,000 units Hydralazine HCl (Apresoline Iv*) 5 mg IV SLOW PU Q6H PRN PRN Reason: Systolic Bp Greater Than: 180 Last Admin: 05/26/19 22:06 Dose: 5 mg Piperacillin Sod/Tazobactam (Sod 3.375 gm/ Sodium Chloride) 100 mls @ 25 mls/ hr IVPB Q12H [facility] Last Admin: 05/26/19 22:25 Dose: 25 mls/hr Propofol (Diprivan*) 100 mls @ 0 mls/hr IV .PER PROTOCOL [facility]; Protocol Metolazone (Zaroxolyn Tab*) 5 mg PO BID [facility] Last Admin: 05/26/19 20:32 Dose: 5 mg Pantoprazole Sodium (Protonix Iv*) 40 mg IV DAILY [facility] Last Admin: 05/26/19 09:32 Dose: 40 mg Pharmacy Consult (Zosyn Per Pharmacy*) 1 note FOLLOW UP .ZOSYN PER PHARMACY MJ Vital Signs - 8 hr 05/26/19 05/26/19 05/26/19 19:00 20:00 21:00 Temperature 99.9 F 99.9 F 99.9 F Pulse Rate 77 75 83 Respiratory 25 22 32 Rate Blood Pressure 156/82 173/99 (mmHg) O2 Sat by Pulse 95 96 95 Oximetry 05/26/19 05/26/19 05/26/19 21:01 22:00 23:00 Temperature 99.9 F 100.4 F 100.6 F Pulse Rate 80 94 103 Respiratory 35 31 36 Rate Blood Pressure 168/68 187/91 (mmHg) O2 Sat by Pulse 96 91 91 Oximetry 05/26/19 05/26/19 05/26/19 23:01 23:42 23:59 Temperature 100.6 F Pulse Rate 104 Respiratory 30 37 35 Rate Blood Pressure 181/87 (mmHg) O2 Sat by Pulse 96 Oximetry 05/27/19 05/27/19 05/27/19 00:00 00:01 00:08 Temperature 100.6 F 100.6 F 100.6 F Pulse Rate 98 103 96 Respiratory 35 24 24 Rate Blood Pressure 146/84 (mmHg) O2 Sat by Pulse 96 96 96 Oximetry 05/27/19 05/27/19 01:00 02:00 Temperature 100.6 F 100.8 F Pulse Rate 97 100 Respiratory 26 21 Rate Blood Pressure 165/86 176/90 (mmHg) O2 Sat by Pulse 96 94 Oximetry Oxygen Devices in Use Now: High Flow Heated Nasal Cannula Result Diagrams: 05/26/19 04:10 05/26/19 04:10 Microbiology and Other Data: Microbiology 05/19/19 15:28 Aerobic Blood Culture - Preliminary Blood Venous No Growth Day 1 Anaerobic Blood Culture - Preliminary No Growth Day 1 05/19/19 16:50 Urine Culture - Final Urine No Growth (<1,000 CFU/mL) 05/19/19 14:14 Aerobic Blood Culture - Preliminary Blood Venous Escherichia Coli Anaerobic Blood Culture - Preliminary Escherichia Coli 05/19/19 20:00 Nasal Screen MRSA (PCR) - Final Nasal Mrsa Not Detected 05/19/19 16:50 Stool Occult Blood (GEOVANNY) - Final Stool 05/19/19 16:50 Stool Gross Appearance - Final Stool C. difficile DNA Amplification - Final 027 Presumptive NEGATIVE Toxigenic C.diff NEGATIVE Assess/Plan/Problems-Billing Assessment:
[2019-05-27] MEDS: Chlorhexidine MOUTHWASH 0.12%* 15 ML UDC SWISH SPIT SCH ×6 (03:53→21:19)
[2019-05-27 06:10] LABS: BUN/Creatinine Ratio 34.9 (8-20); Calcium 8.5 mg/dL (8.6-10.3); EGFR African American 34.2 (>60); EGFR Non-African American 28.3 (>60); Magnesium 2.1 mg/dL (1.9-2.7); Phosphorus 4.4 mg/dL (2.5-5.0); Potassium 3.3 mmol/L (3.5-5.0)
[2019-05-27] MEDS ORDERED: Albuterol 2.5 MG/3 ML NEB.SOL* (0.083%) INH PRN (09:31)
[2019-05-27] MEDS: Heparin VIAL(*) 5000 UNITS/ML VIAL (FIVE THOUSAND) SUBCUT SCH ×2 (09:52→20:20)
[2019-05-27] MEDS: Metolazone TAB* 5 MG PO SCH ×2 (09:52→21:19)
[2019-05-27] MEDS: ZOSYN 3.375 GM Q12H per EXTENDED INFUSION IVPB SCH ×4 (09:53→23:23)
[2019-05-27] MEDS: Pantoprazole IV* 40 MG IV SCH (09:53)
[2019-05-27] MEDS ORDERED: Acetylcysteine INHALATION SOL* 200 MG/ML NEB.SOLN 10 ML SCH (10:00)
[2019-05-27] MEDS: Morphine INJ* 2 MG/ML 1 ML SYRINGE (TWO MG - NEW SYRINGE VERSION) IV PRN ×3 (10:05→20:20)
--- NOTE | 2019-05-27 14:47 | PN ---
Date of Service: 05/27/19 Critical Care Services: Patient reintubated last night because of complete atelectasis of right lung due to retained secretions. Lung has re-expanded but attempts to wean today have been unsuccessful due to increased patient effort (not hypoxemia). Vital Signs: Temp Pulse Resp BP SpO2 FiO2 100.6 F 92 18 119/68 95 40 Note:patient has been borderline febrile all day today. Physical Exam: Gen: Intubated - Is lethargic, but follows commands HEENT: No facial asymmetry Lungs: No wheezes or crackles Cardiac: Reg rhythm. Abdomen: Not dietended Extremities: No cyanosis or edema Fluid Balance (Past 24 Hours): 05/26/19 05/27/19 06:59 06:59 Intake Total 2137 2754 Output Total 3875 5485 Balance -1738 -2731 Weight 154 lb 5.177 oz 149 lb 0.52 oz Intake: IV Fluids 432 119 Magnesium 85 NS 194 90 Potassium Phosphate 85 zosyn 68 29 IVPB 557 204 Calcium Magnesium 59 NS 114 Potassium Phosphate 227 zosyn 271 90 Medicated IV 24 CC - Propofol/Diprivan 24 Oral 670 Tube Feeding 1098 1537 Tube Feeding Flush Amount 50 200 Output: Urine 1075 [place] 3875 3960 Liquid Stool 450 Irrigation Other: Date of Last Bowel 05/27/19 Movement # Bowel Movements 2 Estimated Stool Amount Medium Medium Labs: 05/27/19 05/27/19 05/27/19 00:05 00:05 05:40 ABG pH 7.48 H ABG pCO2 36 ABG pO2 146 H ABG HCO3 27.6 ABG O2 Saturation 98.9 H ABG Base Excess 3.4 H VBG pH Cancelled VBG pCO2 Cancelled VBG pO2 Cancelled VBG HCO3 Cancelled VBG O2 Saturation Cancelled VBG Base Excess Cancelled O2 Delivery Device vapo FiO2 70 Sodium 151 H Potassium 3.3 L Chloride 113 H Carbon Dioxide 28 Anion Gap 10 BUN 61 H Creatinine 1.75 H Est GFR ( Amer) 34.2 Est GFR (Non-Af Amer) 28.3 BUN/Creatinine Ratio 34.9 H Glucose 171 H Calcium 8.5 L Ionized Calcium Phosphorus 4.4 Magnesium 2.1 Studies: CXR: As described Sputum gram stain: 3+ WBCs but no bacteria. Nutrition: None today - has been on Jevity at 60 ml/hr Impression: 1. Patient is weak and unable to clear secretions. 2. Other problems include hypernatremia (has had negative fluid balance past few days), hypokalemia, and renal insufficiency. Plan: 1. Continue daily wean attempts 2. Restart tube feedings 3. Since sputum does not appear to be infected by Gram stain, I will not add to the Zosyn Rx at this time Overall -prognosis is guarded at this time. I have spoken to betteer and by phone. Critical Care Time: 40 minutes (including time to assess weaning).
[2019-05-27] MEDS: Acetylcysteine INHALATION SOL* 200 MG/ML NEB.SOLN 10 ML SCH (19:03)
[2019-05-27] MEDS: Albuterol 2.5 MG/3 ML NEB.SOL* (0.083%) INH PRN (19:03)
[2019-05-28] MEDS: Morphine INJ* 2 MG/ML 1 ML SYRINGE (TWO MG - NEW SYRINGE VERSION) IV PRN ×4 (01:34→22:06)
[2019-05-28] MEDS: Chlorhexidine MOUTHWASH 0.12%* 15 ML UDC SWISH SPIT SCH ×6 (01:34→20:15)
[2019-05-28] MEDS: Propofol* 100 ML IV SCH (01:41)
[2019-05-28] MEDS: Acetaminophen ADULT LIQ* 650 MG/20.3 ML UDC PO PRN (01:53)
[2019-05-28] MEDS: Albuterol 2.5 MG/3 ML NEB.SOL* (0.083%) INH PRN ×3 (03:23→19:12)
[2019-05-28] MEDS: Acetylcysteine INHALATION SOL* 200 MG/ML NEB.SOLN 10 ML SCH ×3 (03:25→19:12)
[2019-05-28 06:20] LABS: Hematocrit 30 % (35-47); Hemoglobin 9.9 g/dL (12.0-16.0); Mean Corpuscular HGB Conc 34 g/dL (31-36); Mean Corpuscular Hemoglobin 30 pg (27-31); Mean Corpuscular Volume 90 fL (80-97); Mean Platelet Volume 9.6 fL (7.4-10.4); Platelet Count 203 10^3/uL (150-450); Red Blood Count 3.27 10^6 /uL (3.70-4.87); Red Cell Distribution Width 16 % (10-15); White Blood Count 12.4 10^3/uL (3.5-10.8)
[2019-05-28 06:35] LABS: BUN/Creatinine Ratio 32.1 (8-20); Calcium 8.4 mg/dL (8.6-10.3); EGFR African American 32.3 (>60); EGFR Non-African American 26.7 (>60); Potassium 3.3 mmol/L (3.5-5.0)
[2019-05-28] MEDS: Heparin VIAL(*) 5000 UNITS/ML VIAL (FIVE THOUSAND) SUBCUT SCH ×2 (10:43→19:20)
[2019-05-28] MEDS: Pantoprazole IV* 40 MG IV SCH (10:44)
[2019-05-28] MEDS: Metolazone TAB* 5 MG PO SCH (11:57)
--- NOTE | 2019-05-28 17:10 | PN ---
Date of Service: 05/28/19 Critical Care Services: Patient placed on minimal ventilatory support during the day and tolerated it. She still seems very week, and is bradykinetic. Vital Signs: Temp Pulse Resp BP SpO2 FiO2 100.2 F 89 28 168/75 95 30 Physical Exam: Gen:Awake and answers questions appropriately HEENT:Pupils reactive. Orotracheal tube in place Lungs: Occasional rhonchi. No crackles Cardiac: Reg rhythm. No murmurs. Abdomen: Not distended Extremities: Warm. No cyanosis or edema. Neuro: Strength 1-2/4 in both upper and lower extremities. Fluid Balance (Past 24 Hours): 05/27/19 05/28/19 06:59 06:59 Intake Total 2754 459.0 Output Total 5485 2290 Balance -2731 -1831.0 Weight 149 lb 0.52 oz 151 lb 1.6 oz Intake: IV Fluids 119 267.8 Magnesium NS 90 123.8 Potassium Phosphate zosyn 29 144 IVPB 204 100 Magnesium NS 114 Potassium Phosphate zosyn 90 100 Medicated IV 24 91.2 CC - Propofol/Diprivan 24 91.2 Oral 670 Tube Feeding 1537 Tube Feeding Flush Amount 200 Output: Urine 1075 [place] 3960 2290 Liquid Stool 450 Other: Date of Last Bowel 05/27/19 Movement # Bowel Movements Estimated Stool Amount Medium Labs: Laboratory Results - last 24 hr 05/28/19 05/28/19 06:09 06:09 WBC 12.4 H RBC 3.27 L Hgb 9.9 L Hct 30 L MCV 90 MCH 30 MCHC 34 RDW 16 H Plt Count 203 MPV 9.6 Sodium 154 H Potassium 3.3 L Chloride 116 H Carbon Dioxide 27 Anion Gap 11 BUN 59 H Creatinine 1.84 H Est GFR ( Amer) 32.3 Est GFR (Non-Af Amer) 26.7 BUN/Creatinine Ratio 32.1 H Glucose 240 H Calcium 8.4 L Studies: CXR: Continued re-expansion of right lung. Nutrition: Tube feedings Impression: 1. Almost ready for re-extubation, but patient may have continued problems clearing secretions due to muscle weakness. 2. Hypernatremia suggests low vascular volume. Plan: 1. Extubate tomorrow if patient does well overnight. 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 2. Will give some IV fluids overnight (LR). Critical Care Time: 50 minutes (including time needed to observe patient during spontaneous breathing trial).
[2019-05-28] MEDS ORDERED: Lactated Ringers 1000 ML Bag* 1,000 ML IV SCH (18:00)
[2019-05-28] MEDS: KCL 20 MEQ/100 ML IVPREMIX* 20 MEQ/100 ML BAG IV SCH ×2 (18:19→19:19)
[2019-05-29] MEDS: Chlorhexidine MOUTHWASH 0.12%* 15 ML UDC SWISH SPIT SCH ×2 (01:59→06:02)
[2019-05-29] MEDS: Propofol* 100 ML IV SCH (01:59)
[2019-05-29] MEDS: Morphine INJ* 2 MG/ML 1 ML SYRINGE (TWO MG - NEW SYRINGE VERSION) IV PRN ×4 (02:00→19:30)
[2019-05-29] MEDS: Acetylcysteine INHALATION SOL* 200 MG/ML NEB.SOLN 10 ML SCH (03:36)
[2019-05-29] MEDS: Albuterol 2.5 MG/3 ML NEB.SOL* (0.083%) INH PRN (03:36)
[2019-05-29 05:14] LABS: Hematocrit 26 % (35-47); Hemoglobin 8.7 g/dL (12.0-16.0); Mean Corpuscular HGB Conc 33 g/dL (31-36); Mean Corpuscular Hemoglobin 30 pg (27-31); Mean Corpuscular Volume 90 fL (80-97); Mean Platelet Volume 9.6 fL (7.4-10.4); Platelet Count 202 10^3/uL (150-450); Red Cell Distribution Width 16 % (10-15); White Blood Count 7.3 10^3/uL (3.5-10.8)
[2019-05-29 05:30] LABS: BUN/Creatinine Ratio 36.7 (8-20); Calcium 8.2 mg/dL (8.6-10.3); EGFR African American 41.8 (>60); EGFR Non-African American 34.6 (>60); Potassium 3.4 mmol/L (3.5-5.0)
[2019-05-29] MEDS: NS 0.45% KCl 20 Meq 1000 ML* 1,000 ML IV SCH ×2 (06:20→18:30)
[2019-05-29] MEDS: ZOSYN 3.375 GM Q12H per EXTENDED INFUSION IVPB SCH ×2 (07:29)
[2019-05-29] MEDS: Heparin VIAL(*) 5000 UNITS/ML VIAL (FIVE THOUSAND) SUBCUT SCH ×2 (07:49→21:24)
[2019-05-29] MEDS: Pantoprazole IV* 40 MG IV SCH (07:49)
[2019-05-29] MEDS ORDERED: Albuterol 2.5 MG/3 ML NEB.SOL* (0.083%) INH PRN (09:19)
[2019-05-29] MEDS ORDERED: Dextrose 50% VIAL 50 ml IV PRN (09:22)
[2019-05-29] MEDS: Insulin LISPRO* 1 UNITS UNIT SUBCUT SCH ×4 (09:43→21:24)
[2019-05-29] MEDS: Lactobacillus Acidophilus* 1 TAB PO SCH ×2 (10:39→21:19)
[2019-05-29] MEDS ORDERED: methylPREDNISolone SOD 40 MG* 1 ML VIAL IV ONE (10:43)
[2019-05-29] MEDS ORDERED: Etomidate* 2 MG/ML 20 ML VIAL (40 MG) ONE (11:15)
[2019-05-29] MEDS ORDERED: fentaNYL* 50 MCG/ML 5 ML VIAL (250 MCG VIAL) ONE (11:20)
[2019-05-29] MEDS ORDERED: Propofol* 100 ML ONE (11:26)
--- NOTE | 2019-05-29 13:25 | PN ---
Date of Service: 05/29/19 Critical Care Services: Extubated this AM and patient developed inspiratory stridor followed shortly thereafter by unresponsiveness - patient was reintubated emergently - severe laryngeal edema noted at reintubation. Patient is now on a ventilator and receiving propofol for sedation. Vital Signs: Temp Pulse Resp BP SpO2 FiO2 98.2 F 78 19 104/56 96 80 Physical Exam: Gen:Unresponsive on propofol HEENT: Pupils reactive bilaterally. No facial asymmetry. Excoriations on lips and in nares Lungs: rhonchi R>L Cardiac: Reg rhythm Abdomen: Not distended Extremities: No cyanosis or edema. Neuro: No apparent focal findings at this time Fluid Balance (Past 24 Hours): 05/27/19 05/28/19 05/29/19 06:59 06:59 06:59 Intake Total 2754 459.0 2418 Output Total 5485 2290 2440 Balance -2731 -1831.0 -22 Weight 149 lb 0.52 oz 151 lb 1.6 oz 144 lb 9.972 oz Intake: IV Fluids 119 267.8 678 LR 534 NS 90 123.8 144 zosyn 29 144 IVPB 204 100 115 NS 114 Potassium 115 zosyn 90 100 Medicated IV 24 91.2 111 CC - Propofol/Diprivan 24 91.2 111 Oral 670 Tube Feeding 1537 1464 Tube Feeding Flush Amount 200 50 Output: Urine 1075 [place] 3960 2290 2440 Liquid Stool 450 Other: Date of Last Bowel 05/27/19 Movement Estimated Stool Amount Medium Labs: 05/29/19 05/29/19 05/29/19 05:00 05:00 09:34 WBC 7.3 RBC 2.90 L Hgb 8.7 L Hct 26 L MCV 90 MCH 30 MCHC 33 RDW 16 H Plt Count 202 MPV 9.6 Sodium 155 H Potassium 3.4 L Chloride 119 H Carbon Dioxide 31 Anion Gap 5 BUN 54 H Creatinine 1.47 H Est GFR ( Amer) 41.8 Est GFR (Non-Af Amer) 34.6 BUN/Creatinine Ratio 36.7 H Glucose 287 H POC Glucose (mg/dL) 245 H Calcium 8.2 L Studies: CXR post-intubation Nutrition: Will restart tube feedings Impression: 1. Reintubation, probably due to UAO from laryngeal edema. 2. Sudden LOC without evidence of hypoxemia - ?CO2 narcosis 3. Profound respiratory muscle weakness - ?critical illness neuromyopathy. Plan: 1. Consult for tracheostomy 2. Stop propofol and evaluate mental status 3. Consult neurology for nerve conduction studies, etc, to evaluate for critical illness neuromyopathy. Patients and son are present at the bedside and are aware of current situation and plans for tracheostomy. Critical Care Time: 60 minutes
[2019-05-29] MEDS ORDERED: Propofol* 100 ML IV SCH (13:30)
[2019-05-29] MEDS: Chlorhexidine MOUTHWASH 0.12%* 15 ML UDC TOPICAL SCH ×3 (14:33→21:25)
--- NOTE | 2019-05-29 18:09 | CONSULT ---
Subjective Date of Service: 05/29/19 Interval History: Ms. Fortune is a 78 yo female with PMH significant for CAD s/p CABG, chronic back pain, and hiatal hernia; who presented to the emergency room with complaints of nausea, vomiting, and confusion. She was admitted to the hospital for septic shock secondary to severe colitis. Her hospital course has been complicated by E Coli bacteremia and acute respiratory failure requiring intubation. During her hospital stay she was noted to have an abrasion on her right buttock (documented as left buttock by NSG staff) on 05/25/19 and on 05/27/19 she was noted to have scattered areas on her lower lip. NSG staff have been treating the wound on the buttocks with barrier cream and Optifoam. She has been having loose stools since admission and has a flexi seal in place. Patient seen and examined at bedside. Nonverbal consent (head nod, yes) given for wound assessment and photograph. Family History: Unchanged from Admission Social History: Unchanged from Admission Past Medical History: Unchanged from Admission Review of Systems - Measurements Intake and Output: Intake and Output Last 24 Hours 05/27/19 05/28/19 05/29/19 05/30/19 06:59 06:59 06:59 06:59 Intake Total 2754 459.0 2418 665.1 Output Total 5485 2290 2440 865 Balance -2731 -1831.0 -22 -199.9 Weight 149 lb 0.52 oz 151 lb 1.6 oz 144 lb 9.972 oz Intake: IV Fluids 119 267.8 678 636 D5W 1/2 NS 20 meq KCL 636 LR 534 NS 90 123.8 144 zosyn 29 144 IVPB 204 100 115 NS 114 Potassium 115 zosyn 90 100 Medicated IV 24 91.2 111 29.1 CC - Propofol/Diprivan 24 91.2 111 29.1 Oral 670 Tube Feeding 1537 1464 Tube Feeding Flush Amount 200 50 Output: Urine 1075 [place] 3960 2290 2440 865 Liquid Stool 450 Other: Date of Last Bowel 05/27/19 Movement Estimated Stool Amount Medium - Review of Systems General Comments: Unable to perform ROS at this time as the patient is intubated. Objective Active Medications: Acetaminophen (Tylenol Adult Liq*) 650 mg PO Q6H PRN Reason: Pain Albuterol (Ventolin 2.5 Mg/3 Ml Neb.Lili*) 2.5 mg INH Q6H PRN Reason: CONGESTION Chlorhexidine Gluconate (Peridex Mouth Wash 0.12%*) 15 ml TOPICAL Q4H [facility] Dextrose (Dextrose 50% Vial 50 Ml*) 25 ml IV PRN Reason: FS < 60 Heparin Sodium (Porcine) (Heparin Vial(*)) 5,000 units SUBCUT BID [facility] Hydralazine HCl (Apresoline Iv*) 5 mg IV SLOW PU Q6H PRN Reason: Systolic Bp Greater Than: 180 Potassium Chloride/Sodium Chloride (Ns 0.45% Kcl 20 Meq 1000 Ml*) 1,000 mls @ 75 mls/hr IV PER RATE [facility] Propofol (Diprivan*) 100 mls @ 0 mls/hr IV .PER PROTOCOL [facility]; Protocol Insulin Human Lispro (Humalog*) 0 units SUBCUT Q4H [facility]; Protocol Lactobacillus Rhamnosus (Lactobacillus Acidophilus*) 1 tab PO BID [facility] Morphine Sulfate (Morphine Inj (Syringe))*) 2 mg IV Q2H PRN Reason: PAIN - SEVERE Pantoprazole Sodium (Protonix Iv*) 40 mg IV DAILY [facility] Vital Signs - 8 hr 05/29/19 17:30 Temperature 98.6 F Pulse Rate 75 Respiratory Rate Blood Pressure 135/72 (mmHg) O2 Sat by Pulse 96 Oximetry Oxygen Devices in Use Now: Endotracheal Tube, Mechanical Ventilator Appearance: NAD, sitting up in bed Ears/Nose/Mouth/Throat: Mucous Membranes Moist, - - See skin note below regarding lip abnormality Respiratory: Symmetrical Chest Expansion and Respiratory Effort Skin: - - See skin note below Neurological: - - Alert and unable to determine orientation Result Diagrams: 06/03/19 04:50 06/03/19 04:50 Additional Lab and Data: Above labs were pulled into the note, when the note was edited prior to signing. Please see labs below from day of consultation. Laboratory Tests 05/26/19 05/29/19 05/29/19 04:10 05:00 05:00 WBC 7.3 Hgb 8.7 L Hct 26 L Plt Count 202 Sodium 155 H Potassium 3.4 L Chloride 119 H Carbon Dioxide 31 BUN 54 H Creatinine 1.47 H Glucose 287 H Total Protein 5.5 L Albumin 2.5 L Skin Deviation Note - Skin Deviation Findings Lower lip - There is dry serosang drainage noted to the left lateral lower aspect of the lip. There is also a dark area just midline of the lower lip on the left, this measures 2 cm x 2 cm x < 0.1 cm. It is difficult to tell if the wound base is dark red or if there is dried drainage. Right buttocks - There is a superficial open, measures 1 cm x 1.5 cm x < 0.1 cm. The wound bed is pink epithelial tissue. The periwound is adherent dry and flaky skin. The surrounding skin is intact with slight blanchable erythema. There is scant drainage. There is no odor. Wound Problem/Plan Assessment: Ms. Fortune is a 78 yo female with PMH significant for CAD s/p CABG, chronic back pain, and hiatal hernia; who presented to the emergency room with complaints of nausea, vomiting, and confusion. She was admitted to the hospital for septic shock secondary to severe colitis. Her hospital course has been complicated by E Coli bacteremia and acute respiratory failure requiring intubation. During her hospital stay she has developed an abrasion on her right buttock and scattered areas on her lower lip. 1. Right buttock wound. Suspect this is multifactorial (pressure; stage 2 and friction). Recommend washing the area with soap and water daily. Apply barrier ( orange top) as needed to the area. Frequent turning and repositioning. Use a friction reduction device to move in bed to assist with further skin breakdown. Will add a prealbumin level to the last labs. 2. Lower lip, senior medical writer related pressure injury. Recommending keeping the ET tube off this area of the lip. Perform mouth care per protocol. Apply lubricant to the area for protection. 3. Colitis. With loose stools, flexi-seal in place. 4. Diet. NPO. 5. Code Status. Full code. 6. Disposition. Inpatient, disposition per primary medicine team. TIME SPENT: Time for this wound consultation was 20 minutes and 10 minutes was spent with the patient assessing, measuring, and photographing the wounds. Is Patient a Wound Clinic Patient: No Attending: Anitra Hicks
--- NOTE | 2019-05-29 21:21 | PRO ---
PROCEDURE NOTE: DATE OF PROCEDURE: 05/29/19 - ROOM #ICU-03 PROCEDURE: Endotracheal intubation. INDICATIONS: This patient is a 78-year-old female who has been hospitalized initially with E. coli bacteremia and septic shock, followed by chronic ventilator dependence and 1 prior extubation where the patient had to be reintubated. The patient was extubated again this morning and was noted to have inspiratory stridor, followed by a change in mental status. An emergent endotracheal intubation was subsequently performed. DESCRIPTION OF PROCEDURE: Under videoscopic control with the patient premedicated with 10 mg of etomidate, a 7.5-British endotracheal tube was inserted through the vocal cords and advanced into the airway. The larynx was noted to be markedly swollen during the intbation. Placement was confirmed by exhaled CO2 analysis, and a postprocedural chest x-ray showed the tube approximately 2 cm above the clotilde. The patient tolerated the procedure well and there were no apparent complications. [id number] #: [id number] MTDD
[2019-05-30] MEDS: Insulin LISPRO* 1 UNITS UNIT SUBCUT SCH ×6 (01:29→22:07)
[2019-05-30] MEDS: Chlorhexidine MOUTHWASH 0.12%* 15 ML UDC TOPICAL SCH ×6 (01:31→22:08)
[2019-05-30] MEDS: Morphine INJ* 2 MG/ML 1 ML SYRINGE (TWO MG - NEW SYRINGE VERSION) IV PRN ×8 (01:31→22:50)
[2019-05-30 05:41] LABS: Hematocrit 26 % (35-47); Hemoglobin 8.7 g/dL (12.0-16.0); Mean Corpuscular HGB Conc 33 g/dL (31-36); Mean Corpuscular Hemoglobin 30 pg (27-31); Mean Corpuscular Volume 92 fL (80-97); Mean Platelet Volume 9.8 fL (7.4-10.4); Platelet Count 226 10^3/uL (150-450); Red Blood Count 2.87 10^6 /uL (3.70-4.87); Red Cell Distribution Width 16 % (10-15); White Blood Count 8.1 10^3/uL (3.5-10.8)
[2019-05-30 06:04] LABS: BUN/Creatinine Ratio 45.7 (8-20); Blood Urea Nitrogen 58 mg/dL (6-24); CO2 Carbon Dioxide 29 mmol/L (22-32); Calcium 7.8 mg/dL (8.6-10.3); EGFR African American 49.5 (>60); EGFR Non-African American 40.9 (>60); Glucose 129 mg/dL (70-100); Potassium 3.9 mmol/L (3.5-5.0)
[2019-05-30 06:06] LABS: Anion Gap 6 mmol/L (2-11); Chloride 120 mmol/L (101-111); Sodium 155 mmol/L (135-145)
[2019-05-30] MEDS: Heparin VIAL(*) 5000 UNITS/ML VIAL (FIVE THOUSAND) SUBCUT SCH ×2 (09:16→22:07)
[2019-05-30] MEDS: Pantoprazole IV* 40 MG IV SCH (09:16)
[2019-05-30] MEDS: Lactobacillus Acidophilus* 1 TAB PO SCH ×2 (09:16→21:34)
--- NOTE | 2019-05-30 11:43 | PN ---
Date of Service: 05/30/19 Critical Care Services: Patient did well overtnight, and is alert this AM. Unable to insert a feeding tube - possibly from the marked laryngeal swelling. Vital Signs: Temp Pulse Resp BP SpO2 FiO2 98.4 F 67 19 143/64 93 50 Physical Exam: Gen:Alert and responds to verbal commands HEENT: Excoriations on lips from prior ET tubes Lungs:Scattered rhonchi Cardiac: Reg rhythm Abdomen: Not distended Extremities:No cyanosis. 1+edema of legs Fluid Balance (Past 24 Hours): 05/29/19 05/30/19 06:59 06:59 Intake Total 2418 1762.7 Output Total 2440 2420 Balance -22 -657.3 Weight 144 lb 9.972 oz 147 lb 7.828 oz Intake: IV Fluids 678 1729 D5W 1/2 NS 20 meq KCL 636 LR 534 NS 144 NS (0.45%) 20 meq KCL 1093 zosyn IVPB 115 Potassium 115 zosyn Medicated IV 111 33.7 CC - Propofol/Diprivan 111 33.7 Oral Tube Feeding 1464 Tube Feeding Flush Amount 50 Output: Urine 600 [place] 2440 1820 Labs: 05/29/19 05/29/19 05/29/19 05:00 13:31 17:58 WBC RBC Hgb Hct MCV MCH MCHC RDW Plt Count MPV Sodium 155 H Potassium 3.4 L Chloride 119 H Carbon Dioxide 31 Anion Gap 5 BUN 54 H Creatinine 1.47 H Est GFR ( Amer) 41.8 Est GFR (Non-Af Amer) 34.6 BUN/Creatinine Ratio 36.7 H Glucose 287 H POC Glucose (mg/dL) 167 H 205 H Calcium 8.2 L Prealbumin 15 L 05/29/19 05/30/19 05/30/19 21:19 01:26 05:33 WBC RBC Hgb Hct MCV MCH MCHC RDW Plt Count MPV Sodium 155 H Potassium 3.9 Chloride 120 H Carbon Dioxide 29 Anion Gap 6 BUN 58 H Creatinine 1.27 H Est GFR ( Amer) 49.5 Est GFR (Non-Af Amer) 40.9 BUN/Creatinine Ratio 45.7 H Glucose 129 H POC Glucose (mg/dL) 172 H 147 H Calcium 7.8 L Prealbumin 05/30/19 05/30/19 05:33 05:36 WBC 8.1 RBC 2.87 L Hgb 8.7 L Hct 26 L MCV 92 MCH 30 MCHC 33 RDW 16 H Plt Count 226 MPV 9.8 Sodium Potassium Chloride Carbon Dioxide Anion Gap BUN Creatinine Est GFR ( Amer) Est GFR (Non-Af Amer) BUN/Creatinine Ratio Glucose POC Glucose (mg/dL) 125 H Calcium Prealbumin Studies: None today Nutrition: TPN at about 1600 kcal/day. Impression: 1. Clinically stable while intubated 2. Hypernatremia persists while renal function appears to be improving 3. Unable to use GI tract for nutrition, temporarily. Plan: 1. TPN for a few days 2. Tracheostomy scheduled for 06/01 3. Increase fluid intake (TPN should take care of that) Critical Care Time: 40 minutes
[2019-05-30] MEDS ORDERED: NS 0.45% 1000 ML BAG* 1,000 ML IV ONE (12:00)
--- NOTE | 2019-05-30 12:34 | CONS ---
CONSULTATION REPORT: DATE OF CONSULT: 05/30/[address] Brady in ICU. SUMMARY: This 78-year-old female apparently intubated 3 times and not doing well in terms of respira tory care. I was asked to see the patient for possible elective tracheostomy. The patient was intubated at the bedside. Examining the neck, she was a satisfactory candidate for a wake tracheostomy. I made arrangements for her to have an awake tracheostomy at the bedside with Dr. Brady on Tuesday about noontime. Thanks for allowing me to see this patient. [id number] #: [id number]
[2019-05-30 15:33] LABS: ALT 11 U/L (7-52); AST 17 U/L (13-39); Alkaline Phosphatase 80 U/L (34-104); Cholesterol 132 mg/dL; Magnesium 2.3 mg/dL (1.9-2.7); Phosphorus 4.9 mg/dL (2.5-5.0); Total Protein 5.8 g/dL (6.4-8.9); Triglycerides 286 mg/dL
[2019-05-30 15:35] LABS: Albumin 1.2 g/dL (3.2-5.2); Albumin/Globulin Ratio 0.3 (1-3); Globulin 4.6 g/dL (2-4)
[2019-05-30] MEDS ORDERED: TPN* 24 HR with Dextrose 40% Water* 500 ML, Amino Acid Infusion 10%* 850 ML, Sterile Wa... CENT\\PICC SCH ×13 (17:00)
[2019-05-30] MEDS: NS 0.45% KCl 20 Meq 1000 ML* 1,000 ML IV SCH (18:08)
[2019-05-31] MEDS: Insulin LISPRO* 1 UNITS UNIT SUBCUT SCH ×6 (02:53→21:09)
[2019-05-31] MEDS: Morphine INJ* 2 MG/ML 1 ML SYRINGE (TWO MG - NEW SYRINGE VERSION) IV PRN ×5 (02:53→14:36)
[2019-05-31] MEDS: Chlorhexidine MOUTHWASH 0.12%* 15 ML UDC TOPICAL SCH ×6 (02:53→21:10)
[2019-05-31 05:47] LABS: Hematocrit 27 % (35-47); Hemoglobin 8.8 g/dL (12.0-16.0); Mean Corpuscular HGB Conc 33 g/dL (31-36); Mean Corpuscular Hemoglobin 30 pg (27-31); Mean Corpuscular Volume 92 fL (80-97); Mean Platelet Volume 10.1 fL (7.4-10.4); Platelet Count 245 10^3/uL (150-450); Red Blood Count 2.95 10^6 /uL (3.70-4.87); Red Cell Distribution Width 16 % (10-15); White Blood Count 8.4 10^3/uL (3.5-10.8)
[2019-05-31 06:01] LABS: Albumin 2.5 g/dL (3.2-5.2); Albumin/Globulin Ratio 0.7 (1-3); Calcium 8.3 mg/dL (8.6-10.3); EGFR African American 58.4 (>60); EGFR Non-African American 48.3 (>60); Globulin 3.4 g/dL (2-4); Magnesium 2.3 mg/dL (1.9-2.7); Phosphorus 3.4 mg/dL (2.5-5.0); Potassium 3.9 mmol/L (3.5-5.0); Total Bilirubin 0.4 mg/dL (0.2-1.0); Total Protein 5.9 g/dL (6.4-8.9)
[2019-05-31] MEDS: hydrALAZINE IV* 20 MG/ML VIAL IV SLOW PU PRN ×4 (06:04→22:27)
[2019-05-31] MEDS: NS 0.45% KCl 20 Meq 1000 ML* 1,000 ML IV SCH ×2 (07:33→20:54)
[2019-05-31] MEDS: Lactobacillus Acidophilus* 1 TAB PO SCH ×2 (08:50→20:03)
[2019-05-31] MEDS: Heparin VIAL(*) 5000 UNITS/ML VIAL (FIVE THOUSAND) SUBCUT SCH ×2 (09:25→21:10)
[2019-05-31] MEDS: Famotidine IV* 10 MG/ML 2 ML (20 mg) IV SLOW PU SCH (09:25)
--- NOTE | 2019-05-31 14:17 | PN ---
Date of Service: 05/31/19 Critical Care Services: Remains on the ventilator - is awake and aware. EMGs and nerve conduction studies yesterday not consistent with Dx of critical illness neuromyopathy. Vital Signs: Temp Pulse Resp BP SpO2 FiO2 99.1 F 75 25 167/72 95 30 Physical Exam: Gen:Awake and follows verbal commands HEENT: No change from yesterday Lungs: scattered rhonchi Cardiac: reg rhythm Abdomen: Not distended Extremities: No cyanosis or edema. Fluid Balance (Past 24 Hours): 05/30/19 05/31/19 06:59 06:59 Intake Total 1762.7 2716 Output Total 2420 2065 Balance -657.3 651 Weight 147 lb 145 lb Intake: IV Fluids 1729 1818 D5W 1/2 NS 20 meq KCL 636 LR NS NS (0.45%) 858 NS (0.45%) 20 meq KCL 1093 875 TPN 85 IVPB Potassium Medicated IV 33.7 CC - Propofol/Diprivan 33.7 TPN/PPN 898 Oral 0 Tube Feeding Tube Feeding Flush Amount Output: Urine 600 [place] 1820 2065 Straight Cath Labs: 05/30/19 05/30/19 05:33 21:41 WBC RBC Hgb Hct MCV MCH MCHC RDW Plt Count MPV Sodium 155 H Potassium 3.9 Chloride 120 H Carbon Dioxide 29 Anion Gap 6 BUN 58 H Creatinine 1.27 H Est GFR ( Amer) 49.5 Est GFR (Non-Af Amer) 40.9 BUN/Creatinine Ratio 45.7 H Glucose 129 H POC Glucose (mg/dL) 220 H Calcium 7.8 L Phosphorus 4.9 Magnesium 2.3 Total Bilirubin 0.40 AST 17 ALT 11 Alkaline Phosphatase 80 Total Protein 5.8 L Albumin 1.2 L Globulin 4.6 H Albumin/Globulin Ratio 0.3 L Prealbumin TNP Triglycerides 286 Cholesterol 132 05/31/19 05/31/19 05/31/19 05:24 05:24 05:28 WBC 8.4 RBC 2.95 L Hgb 8.8 L Hct 27 L MCV 92 MCH 30 MCHC 33 RDW 16 H Plt Count 245 MPV 10.1 Sodium 150 H Potassium 3.9 Chloride 119 H Carbon Dioxide 26 Anion Gap 5 BUN 55 H Creatinine 1.10 H Est GFR ( Amer) 58.4 Est GFR (Non-Af Amer) 48.3 BUN/Creatinine Ratio 50.0 H Glucose 221 H POC Glucose (mg/dL) 225 H Calcium 8.3 L Phosphorus 3.4 Magnesium 2.3 Total Bilirubin 0.40 AST 21 ALT 16 Alkaline Phosphatase 88 Total Protein 5.9 L Albumin 2.5 L Globulin 3.4 Albumin/Globulin Ratio 0.7 L Prealbumin 19 Triglycerides 284 Cholesterol 126 05/31/19 05/31/19 09:08 13:14 WBC RBC Hgb Hct MCV MCH MCHC RDW Plt Count MPV Sodium Potassium Chloride Carbon Dioxide Anion Gap BUN Creatinine Est GFR ( Amer) Est GFR (Non-Af Amer) BUN/Creatinine Ratio Glucose POC Glucose (mg/dL) 228 H 258 H Calcium Phosphorus Magnesium Total Bilirubin AST ALT Alkaline Phosphatase Total Protein Albumin Globulin Albumin/Globulin Ratio Prealbumin Triglycerides Cholesterol Nutrition: TPN Impression: Clinically stable - awaiting tracheostomy Plan: Tracheostomy tomorrow. Continue physical therapy. Also coninue TPN and attempt to place a feeding tube tomorrow, during the tracheostomy. Critical Care Time: 30 minutes
[2019-05-31] MEDS: TPN* 24 HR with Dextrose 40% Water* 500 ML, Amino Acid Infusion 10%* 850 ML, Sterile Wa... CENT\\PICC SCH ×13 (16:34)
[2019-06-01] MEDS: Chlorhexidine MOUTHWASH 0.12%* 15 ML UDC TOPICAL SCH ×5 (01:43→18:20)
[2019-06-01] MEDS: Insulin LISPRO* 1 UNITS UNIT SUBCUT SCH ×6 (01:46→22:39)
[2019-06-01] MEDS ORDERED: hydrALAZINE IV* 20 MG/ML VIAL IV SLOW PU PRN (03:10)
[2019-06-01] MEDS ORDERED: Labetalol IV* 5 MG/ML 20 ML VIAL IV PUSH ONE (03:10)
[2019-06-01 06:02] LABS: Albumin 2.5 g/dL (3.2-5.2); Albumin/Globulin Ratio 0.7 (1-3); Calcium 8.8 mg/dL (8.6-10.3); EGFR African American 66.8 (>60); EGFR Non-African American 55.2 (>60); Globulin 3.4 g/dL (2-4); Phosphorus 3.4 mg/dL (2.5-5.0); Potassium 4.1 mmol/L (3.5-5.0); Total Bilirubin 0.4 mg/dL (0.2-1.0); Total Protein 5.9 g/dL (6.4-8.9)
[2019-06-01] MEDS: Lactobacillus Acidophilus* 1 TAB PO SCH ×2 (07:30→20:11)
[2019-06-01] MEDS: Famotidine IV* 10 MG/ML 2 ML (20 mg) IV SLOW PU SCH (08:14)
[2019-06-01] MEDS: Heparin VIAL(*) 5000 UNITS/ML VIAL (FIVE THOUSAND) SUBCUT SCH ×2 (08:14→20:28)
[2019-06-01] MEDS: NS 0.45% KCl 20 Meq 1000 ML* 1,000 ML IV SCH (10:53)
[2019-06-01] MEDS ORDERED: Midazolam* 1 MG/ML 5 ML VIAL (5 MG) IV SLOW PU ONE (12:20)
[2019-06-01] MEDS ORDERED: fentaNYL* 50 MCG/ML 2 ML VIAL (100 MCG VIAL) IV SLOW PU ONE (12:20)
[2019-06-01] MEDS ORDERED: fentaNYL* 50 MCG/ML 2 ML VIAL (100 MCG VIAL) ONE (13:03)
--- NOTE | 2019-06-01 16:29 | PN ---
Date of Service: 06/01/19 Critical Care Services: Tracheostomy today at the bedside by ENT service, without apparent complications. Patient currently resting comfortably in the bed. Vital Signs: Temp Pulse Resp BP SpO2 FiO2 100.2 F 76 20 141/66 98 100 Physical Exam: Gen: Awake HEENT: Blood around tracheostomy stoma but no active bleeding Lungs: Scattered rhonchi Cardiac: Reg rhythm Abdomen: Not distended Extremities: No cyanosis 1+edema both LEs Fluid Balance (Past 24 Hours): 05/30/19 05/31/19 06/01/19 06:59 06:59 06:59 Intake Total 1762.7 2716 3663 Output Total 2420 2065 3705 Balance -657.3 651 -42 Weight 147 lb 7.828 oz 145 lb 9 oz 144 lb 13.499 oz Intake: IV Fluids 1729 1818 2980 D5W 1/2 NS 20 meq KCL 636 NS (0.45%) 858 NS (0.45%) 20 meq KCL 0036 082 6874 TPN 85 1179 Medicated IV 33.7 CC - Propofol/Diprivan 33.7 TPN/PPN 898 683 Oral 0 Output: Urine 600 [place] 1820 2065 3600 Straight Cath 105 Labs: Laboratory Results - last 24 hr 05/31/19 05/31/19 06/01/19 17:41 21:04 01:42 Sodium Potassium Chloride Carbon Dioxide Anion Gap BUN Creatinine Est GFR ( Amer) Est GFR (Non-Af Amer) BUN/Creatinine Ratio Glucose POC Glucose (mg/dL) 254 H 255 H 262 H Calcium Phosphorus Magnesium Total Bilirubin AST ALT Alkaline Phosphatase Total Protein Albumin Globulin Albumin/Globulin Ratio Prealbumin Triglycerides Cholesterol 06/01/19 06/01/19 06/01/19 05:33 09:25 14:20 Sodium 147 H Potassium 4.1 Chloride 120 H Carbon Dioxide 22 Anion Gap 5 BUN 47 H Creatinine 0.98 H Est GFR ( Amer) 66.8 Est GFR (Non-Af Amer) 55.2 BUN/Creatinine Ratio 48.0 H Glucose 253 H POC Glucose (mg/dL) 256 H 263 H Calcium 8.8 Phosphorus 3.4 Magnesium 2.0 Total Bilirubin 0.40 AST 19 ALT 17 Alkaline Phosphatase 105 H Total Protein 5.9 L Albumin 2.5 L Globulin 3.4 Albumin/Globulin Ratio 0.7 L Prealbumin 22 Triglycerides 218 Cholesterol 120 Studies: None today Nutrition: TPN (about 1600 kcal/day) Impression: Tolerated tracheostomy well. Overall, is clinically stable Plan: Begin weaning off ventilator tomorrow. We will also attempt to place a feeding tube so we can D/C the TPN. Critical Care Time: 60 minutes (including time spent assisting in the tracheostomy).
[2019-06-01] MEDS: TPN* 24 HR with Dextrose 40% Water* 500 ML, Amino Acid Infusion 10%* 850 ML, Sterile Wa... CENT\\PICC SCH ×13 (16:35)
[2019-06-01] MEDS: Morphine INJ* 2 MG/ML 1 ML SYRINGE (TWO MG - NEW SYRINGE VERSION) IV PRN ×3 (16:35→22:25)
--- NOTE | 2019-06-01 20:47 | OP ---
OPERATIVE REPORT: DATE OF OPERATION: 06/01/19 - Inpatient, room [place] [address]-01 DATE OF : 44 SURGEON: Gama Rajput MD ALUMNI SECRETARY: Dr. Brady. PRE-OP DIAGNOSES: 1. Laryngeal edema. 2. Respiratory failure. POST-OP DIAGNOSES: 1. Laryngeal edema. 2. Respiratory failure. OPERATIVE PROCEDURE: Percutaneous tracheostomy. BRIEF HISTORY: This is a 78-year-old female with history of respiratory failure , being intubated 3 times. The ICU physician made a decision for tracheostomy. DESCRIPTION OF PROCEDURE: The patient at the bedside in the ICU. After getting consent and identifying correct patient, correct position and procedure , we proceeded with doing a bronchoscope. I infiltrated 2% lidocaine with epinephrine. Small incision of the skin was created. A guidewire was introduced into the trachea. Confirmed by the bronchoscope. Then, serial dilatation was carried out. A #8 cuffed tracheostomy was placed. Confirmed with the bronchoscope. The patient's transfer ventilation was carried out. The tracheostomy was secured in place. The patient was then awakened further by ICU protocol to be kept in the ICU until awake. [id number] #: [id number] MTDD
[2019-06-02] MEDS: Chlorhexidine MOUTHWASH 0.12%* 15 ML UDC TOPICAL SCH ×7 (00:03→23:19)
[2019-06-02] MEDS: Morphine INJ* 2 MG/ML 1 ML SYRINGE (TWO MG - NEW SYRINGE VERSION) IV PRN ×5 (00:29→21:18)
[2019-06-02] MEDS: NS 0.45% KCl 20 Meq 1000 ML* 1,000 ML IV SCH ×2 (00:35→06:21)
[2019-06-02] MEDS: Insulin LISPRO* 1 UNITS UNIT SUBCUT SCH ×6 (02:22→23:19)
[2019-06-02] MEDS ORDERED: Dexmedetomidine* 1,000 MCG in NS 0.9% 250 ML* 240 ML IV SCH (03:00)
[2019-06-02 06:49] LABS: Albumin 2.4 g/dL (3.2-5.2); Albumin/Globulin Ratio 0.8 (1-3); BUN/Creatinine Ratio 47.8 (8-20); Calcium 8.5 mg/dL (8.6-10.3); EGFR African American 71.8 (>60); EGFR Non-African American 59.4 (>60); Magnesium 1.9 mg/dL (1.9-2.7); Phosphorus 3.5 mg/dL (2.5-5.0); Potassium 4.3 mmol/L (3.5-5.0); Total Bilirubin 0.4 mg/dL (0.2-1.0); Total Protein 5.4 g/dL (6.4-8.9)
[2019-06-02] MEDS: Heparin VIAL(*) 5000 UNITS/ML VIAL (FIVE THOUSAND) SUBCUT SCH ×2 (08:58→21:06)
[2019-06-02] MEDS: Lactobacillus Acidophilus* 1 TAB PO SCH ×3 (08:58→21:07)
[2019-06-02] MEDS: Famotidine IV* 10 MG/ML 2 ML (20 mg) IV SLOW PU SCH (08:58)
[2019-06-02] MEDS: Ketorolac INJ* 30 MG/ML 1 ML VIAL IV PRN ×2 (10:44→19:13)
--- NOTE | 2019-06-02 16:55 | PN ---
Date of Service: 06/02/19 Critical Care Services: Had a good day - off the ventilator all day and up in a chair. Placed feeding tube today. Vital Signs: Temp Pulse Resp BP SpO2 FiO2 99.1 F 90 21 137/57 98 40 Physical Exam: Gen: Awake and responds to verbal commands HEENT: Trach in place - no bleeding or purulence Lungs: Coarse rhonchi Cardiac: Reg rhythm Abdomen: Not distended Extremities: No cyanosis Fluid Balance (Past 24 Hours): I= O= Net Intake & Output 05/31/19 06/01/19 06/02/19 06:59 06:59 06:59 Intake Total 2716 3663 3006 Output Total 2065 3705 3460 Balance 651 42 454 Weight 145 lb 9 oz 144 lb 13.499 oz 143 lb 11.862 oz Intake: IV Fluids 1818 2980 2981 NS (0.45%) 858 NS (0.45%) 20 meq KCL 875 1801 1090 TPN 85 1179 1891 Medicated IV 25 CC - Dexmedetomidine/ 25 Precedex TPN/PPN 898 683 Oral 0 0 Output: [place] 2065 3600 3460 Straight Cath 105 Labs: 06/01/19 06/01/19 06/02/19 17:27 22:19 02:10 Sodium Potassium Chloride Carbon Dioxide Anion Gap BUN Creatinine Est GFR ( Amer) Est GFR (Non-Af Amer) BUN/Creatinine Ratio Glucose POC Glucose (mg/dL) 248 H 251 H 252 H Calcium Phosphorus Magnesium Total Bilirubin AST ALT Alkaline Phosphatase Total Protein Albumin Globulin Albumin/Globulin Ratio Prealbumin Triglycerides Cholesterol 06/02/19 06/02/19 06/02/19 06:20 06:49 10:34 Sodium 146 H Potassium 4.3 Chloride 121 H Carbon Dioxide 22 Anion Gap 3 BUN 44 H Creatinine 0.92 Est GFR ( Amer) 71.8 Est GFR (Non-Af Amer) 59.4 BUN/Creatinine Ratio 47.8 H Glucose 237 H POC Glucose (mg/dL) 268 H 250 H Calcium 8.5 L Phosphorus 3.5 Magnesium 1.9 Total Bilirubin 0.40 AST 17 ALT 17 Alkaline Phosphatase 78 Total Protein 5.4 L Albumin 2.4 L Globulin 3.0 Albumin/Globulin Ratio 0.8 L Prealbumin 21 Triglycerides 188 Cholesterol 98 06/02/19 15:18 Sodium Potassium Chloride Carbon Dioxide Anion Gap BUN Creatinine Est GFR ( Amer) Est GFR (Non-Af Amer) BUN/Creatinine Ratio Glucose POC Glucose (mg/dL) 268 H Calcium Phosphorus Magnesium Total Bilirubin AST ALT Alkaline Phosphatase Total Protein Albumin Globulin Albumin/Globulin Ratio Prealbumin Triglycerides Cholesterol Studies: CXR: shows proper placement of feeding tube Nutrition: Tube feedings started today with Jevity 1.2 Impression: Doing well from a pulmonary standpoint. Glycemic control could be better. Plan: Switch tube feedings to glucerna. Keep off ventilator as long as tolerated. Critical Care Time: 40 minutes
[2019-06-02] MEDS: Acetaminophen ADULT LIQ* 650 MG/20.3 ML UDC PO PRN (19:13)
[2019-06-03] MEDS: Ketorolac INJ* 30 MG/ML 1 ML VIAL IV PRN ×3 (02:50→15:26)
[2019-06-03] MEDS: Chlorhexidine MOUTHWASH 0.12%* 15 ML UDC TOPICAL SCH ×5 (03:31→19:57)
[2019-06-03] MEDS: Insulin LISPRO* 1 UNITS UNIT SUBCUT SCH ×5 (03:32→20:19)
[2019-06-03 04:59] LABS: ABS Basophils 0.1 10^3/ul (0-0.2); ABS Eosinophils 0.2 10^3/ul (0-0.6); ABS Lymphocytes 1.2 10^3/ul (1.0-4.8); ABS Monocytes 0.7 10^3/ul (0-0.8); ABS Neutrophils 8.1 10^3/ul (1.5-7.7); Eosinophil % 2.2 %; Hematocrit 27 % (35-47); Lymphocyte % 11.8 %; Mean Corpuscular HGB Conc 33 g/dL (31-36); Mean Corpuscular Hemoglobin 31 pg (27-31); Mean Corpuscular Volume 93 fL (80-97); Mean Platelet Volume 9.5 fL (7.4-10.4); Platelet Count 192 10^3/uL (150-450); Red Blood Count 2.93 10^6 /uL (3.70-4.87); Red Cell Distribution Width 16 % (10-15); White Blood Count 10.3 10^3/uL (3.5-10.8)
[2019-06-03 05:16] LABS: BUN/Creatinine Ratio 53.8 (8-20); Calcium 8.8 mg/dL (8.6-10.3); EGFR African American 70.9 (>60); EGFR Non-African American 58.6 (>60); Potassium 4.2 mmol/L (3.5-5.0)
[2019-06-03] MEDS: Acetaminophen ADULT LIQ* 650 MG/20.3 ML UDC PO PRN ×2 (08:29→12:35)
[2019-06-03] MEDS: Famotidine IV* 10 MG/ML 2 ML (20 mg) IV SLOW PU SCH (08:29)
[2019-06-03] MEDS: Lactobacillus Acidophilus* 1 TAB PO SCH ×2 (08:29→19:57)
[2019-06-03] MEDS: Heparin VIAL(*) 5000 UNITS/ML VIAL (FIVE THOUSAND) SUBCUT SCH ×2 (08:29→19:57)
[2019-06-03] MEDS: Nystatin CREAM* 15 GM TUBE TOPICAL SCH ×3 (08:30→19:58)
--- NOTE | 2019-06-03 10:28 | PN ---
Date of Service: 06/03/19 Critical Care Services: on TC. Up in bed. NAD. Vital Signs: Temp Pulse Resp BP SpO2 FiO2 99.0 F 82 18 131/84 98 35 06/03/19 09:00 06/03/19 09:00 06/03/19 09:00 06/03/19 09:00 06/03/19 09:00 06/03 08:49 Physical Exam: Gen: Awake and responds to verbal commands. On TC Lungs: Coarse rhonchi Cardiac: Reg rhythm Abdomen: Not distended Extremities: No cyanosis, no CHERYL Fluid Balance (Past 24 Hours): I= O= Net Intake & Output 06/01/19 06/02/19 06/03/19 06/04/19 06:59 06:59 06:59 06:59 Intake Total 3663 3006 1818 Output Total 3705 3460 2655 Balance -42 -454 -837 Weight 144 lb 13.499 oz 143 lb 11.862 oz 145 lb 8.081 oz Intake: IV Fluids 2980 2981 940 NS (0.45%) 20 meq KCL 1801 1090 163 TPN 1179 1891 777 Medicated IV 25 7 CC - Dexmedetomidine/ 25 7 Precedex TPN/PPN 683 Oral 0 Tube Feeding 781 Tube Feeding Flush Amount 90 Output: Urine 70 [place] 3600 3460 1985 Straight Cath 105 Liquid Stool 600 Labs: Laboratory Results - last 24 hr 06/02/19 06/02/19 06/02/19 10:34 15:18 18:35 WBC RBC Hgb Hct MCV MCH MCHC RDW Plt Count MPV Neut % (Auto) Lymph % (Auto) Summers % (Auto) Eos % (Auto) Baso % (Auto) Absolute Neuts (auto) Absolute Lymphs (auto) Absolute Monos (auto) Absolute Eos (auto) Absolute Basos (auto) Absolute Nucleated RBC Nucleated RBC % Sodium Potassium Chloride Carbon Dioxide Anion Gap BUN Creatinine Est GFR ( Amer) Est GFR (Non-Af Amer) BUN/Creatinine Ratio Glucose POC Glucose (mg/dL) 250 H 268 H 231 H Calcium 06/02/19 06/03/19 06/03/19 23:11 03:23 04:50 WBC RBC Hgb Hct MCV MCH MCHC RDW Plt Count MPV Neut % (Auto) Lymph % (Auto) Summers % (Auto) Eos % (Auto) Baso % (Auto) Absolute Neuts (auto) Absolute Lymphs (auto) Absolute Monos (auto) Absolute Eos (auto) Absolute Basos (auto) Absolute Nucleated RBC Nucleated RBC % Sodium 146 H Potassium 4.2 Chloride 121 H Carbon Dioxide 20 L Anion Gap 5 BUN 50 H Creatinine 0.93 Est GFR ( Amer) 70.9 Est GFR (Non-Af Amer) 58.6 BUN/Creatinine Ratio 53.8 H Glucose 170 H POC Glucose (mg/dL) 180 H 175 H Calcium 8.8 06/03/19 06/03/19 04:50 08:14 WBC 10.3 RBC 2.93 L Hgb 9.0 L Hct 27 L MCV 93 MCH 31 MCHC 33 RDW 16 H Plt Count 192 MPV 9.5 Neut % (Auto) 78.6 Lymph % (Auto) 11.8 Summers % (Auto) 6.4 Eos % (Auto) 2.2 Baso % (Auto) 1.0 Absolute Neuts (auto) 8.1 H Absolute Lymphs (auto) 1.2 Absolute Monos (auto) 0.7 Absolute Eos (auto) 0.2 Absolute Basos (auto) 0.1 Absolute Nucleated RBC 0.0 Nucleated RBC % 0.0 Sodium Potassium Chloride Carbon Dioxide Anion Gap BUN Creatinine Est GFR ( Amer) Est GFR (Non-Af Amer) BUN/Creatinine Ratio Glucose POC Glucose (mg/dL) 215 H Calcium Impression: ARF on CRF with trach HTN Plan: continue TF's continue TC D/C planning to rehab add home BP medications Critical Care Time: 45
[2019-06-03] MEDS: Metoprolol Tartrate TAB* 25 MG PO SCH (19:57)
[2019-06-03] MEDS: Morphine INJ* 2 MG/ML 1 ML SYRINGE (TWO MG - NEW SYRINGE VERSION) IV PRN ×2 (19:58→23:50)
[2019-06-04] MEDS: Insulin LISPRO* 1 UNITS UNIT SUBCUT SCH ×5 (00:16→18:54)
[2019-06-04] MEDS: Ketorolac INJ* 30 MG/ML 1 ML VIAL IV PRN ×2 (00:16→06:14)
[2019-06-04] MEDS: Chlorhexidine MOUTHWASH 0.12%* 15 ML UDC TOPICAL SCH ×5 (00:16→15:38)
[2019-06-04] MEDS: Morphine INJ* 2 MG/ML 1 ML SYRINGE (TWO MG - NEW SYRINGE VERSION) IV PRN (03:21)
[2019-06-04] MEDS: Famotidine IV* 10 MG/ML 2 ML (20 mg) IV SLOW PU SCH (08:06)
[2019-06-04] MEDS: Metoprolol Tartrate TAB* 25 MG PO SCH ×2 (08:06→20:33)
[2019-06-04] MEDS: Lactobacillus Acidophilus* 1 TAB PO SCH ×2 (08:06→20:33)
[2019-06-04] MEDS: Heparin VIAL(*) 5000 UNITS/ML VIAL (FIVE THOUSAND) SUBCUT SCH ×2 (08:06→20:33)
[2019-06-04] MEDS: Nystatin CREAM* 15 GM TUBE TOPICAL SCH ×2 (08:06→15:01)
[2019-06-04] MEDS: Acetaminophen TAB* 325 MG PO PRN ×3 (10:51→18:55)
--- NOTE | 2019-06-04 10:58 | PN ---
Date of Service: 06/04/19 Critical Care Services: remains on Trach collar. Oxygenating well No stridor still with diarrhea Vital Signs: Temp Pulse Resp BP SpO2 FiO2 97.1 F 70 18 167/75 98 35 06/04/19 07:15 06/04/19 10:00 06/04/19 10:00 06/04/19 10:00 06/04/19 10:00 06/04 08:00 Physical Exam: Gen: sultana dos santos Fluid Balance (Past 24 Hours): I= O= Net Intake & Output 06/02/19 06/03/19 06/04/19 06/05/19 06:59 06:59 06:59 06:59 Intake Total 3006 1818 1140 0 Output Total 3460 2655 460 Balance -454 -837 680 0 Weight 143 lb 11.862 oz 145 lb 8.081 oz 142 lb 9 oz Intake: IV Fluids 2981 940 35 NS 35 NS (0.45%) 20 meq KCL 1090 163 0 TPN 1891 777 Medicated IV 25 7 CC - Dexmedetomidine/ 25 7 Precedex Oral 0 0 Tube Feeding 781 985 Tube Feeding Flush Amount 90 75 NG Tube Irrigate Amount 45 Output: Urine 70 [place] 3460 1985 460 Liquid Stool 600 Other: Estimated Void Large Date of Last Bowel 06/04/19 Movement # Voids 2 Labs: Laboratory Results - last 24 hr 06/03/19 06/03/19 06/03/19 12:23 16:49 20:06 POC Glucose (mg/dL) 188 H 142 H 188 H 06/03/19 06/04/19 06/04/19 23:44 03:29 07:57 POC Glucose (mg/dL) 184 H 195 H 176 H Impression: s/p colitis s/p E.coli sepsis chronic respiratory failure s/p several re-intubations with laryngo-edema s/p LEONARDO s/p Thrombocytopenia Deconditioning anemia Plan: may transfer to LTAC when approved continue TC trials speech and swallow continue aggressive PT/OT Critical Care Time: 55
[2019-06-04] MEDS ORDERED: Ketorolac INJ* 15 MG/ML 1 ML VIAL IM ONE (11:46)
[2019-06-04] MEDS ORDERED: Ketorolac INJ* 15 MG/ML 1 ML VIAL IV PUSH ONE (12:00)
[2019-06-05] MEDS: Insulin LISPRO* 1 UNITS UNIT SUBCUT SCH ×6 (00:24→17:20)
[2019-06-05] MEDS: Chlorhexidine MOUTHWASH 0.12%* 15 ML UDC TOPICAL SCH ×6 (00:25→20:44)
[2019-06-05] MEDS: Nystatin CREAM* 15 GM TUBE TOPICAL SCH ×4 (00:29→21:01)
[2019-06-05] MEDS ORDERED: Acetaminophen SUPP* 650 MG SUPP PR PRN (07:59)
[2019-06-05] MEDS: Metoprolol Tartrate TAB* 25 MG PO SCH (08:48)
[2019-06-05] MEDS: Lactobacillus Acidophilus* 1 TAB PO SCH ×2 (08:48→21:20)
[2019-06-05] MEDS: Acetaminophen ADULT LIQ* 650 MG/20.3 ML UDC PO PRN ×3 (08:51→18:40)
[2019-06-05] MEDS: Heparin VIAL(*) 5000 UNITS/ML VIAL (FIVE THOUSAND) SUBCUT SCH ×2 (08:52→20:55)
[2019-06-05] MEDS: Famotidine IV* 10 MG/ML 2 ML (20 mg) IV SLOW PU SCH (08:52)
[2019-06-05 09:46] LABS: % Iron Saturation 14 % (15-55); Iron 41 ug/dL (50-212); Total Iron Binding Capacity 288 mcg/dL (250-450); Transferrin 206 mg/dL (203-362)
[2019-06-05 10:08] LABS: Ferritin 181.1 ng/mL (11-307)
[2019-06-05 10:11] LABS: Folate 19.64 ng/mL (>3.99)
--- NOTE | 2019-06-05 15:41 | PN ---
Subjective Date of Service: 06/05/19 Interval History: Ms. Fortune is s/p trach, and does not speak, but signaled/mouthed that she is doing "so-so." She denies abdominal pain, diarrhea, but does c/o loose stools. She denies cough, chest pain, palpitations. She is urinating without difficulty, but does have some urinary incontinence at times. She started to eat today, as recommended by ST, and has had no difficulty with swallowing. She has no other complaints today. Family History: Unchanged from Admission Social History: Unchanged from Admission Past Medical History: Unchanged from Admission Objective Active Medications: Acetaminophen (Tylenol Supp*) 650 mg WV Q4H PRN PRN Reason: mild to moderate pain Acetaminophen (Tylenol Adult Liq*) 650 mg PO Q4H PRN PRN Reason: .PAIN Last Admin: 06/05/19 13:58 Dose: 650 mg Albuterol (Ventolin 2.5 Mg/3 Ml Neb.Lili*) 2.5 mg INH Q6H PRN PRN Reason: CONGESTION Last Admin: 05/29/19 09:20 Dose: 2.5 mg Chlorhexidine Gluconate (Peridex Mouth Wash 0.12%*) 15 ml TOPICAL Q4H MJ Last Admin: 06/05/19 11:14 Dose: Not Given Dextrose (Dextrose 50% Vial 50 Ml*) 25 ml IV .FOR FS < 60 PRN PRN Reason: FS < 60 Famotidine (Pepcid Iv*) 20 mg IV SLOW PU DAILY MJ Last Admin: 06/05/19 08:52 Dose: 20 mg Heparin Sodium (Porcine) (Heparin Vial(*)) 5,000 units SUBCUT BID MJ Last Admin: 06/05/19 08:52 Dose: 5,000 units Heparin Sodium (Porcine) (Heparin Flush Picc/Ml/Cvc(*)) 1 - 3 ml FLUSH 0600, 1800 [facility]; Protocol Last Admin: 06/05/19 09:00 Dose: 1 ml Hydralazine HCl (Apresoline Iv*) 10 mg IV SLOW PU Q6H PRN PRN Reason: Systolic Bp Greater Than: 180 Last Admin: 06/01/19 16:13 Dose: 10 mg Insulin Human Lispro (Humalog*) 0 units SUBCUT Q4H MJ; Protocol Last Admin: 06/05/19 11:48 Dose: Not Given Lactobacillus Rhamnosus (Lactobacillus Acidophilus*) 1 tab PO BID [facility] Last Admin: 06/05/19 08:48 Dose: 1 tab Metoprolol Tartrate (Lopressor Tab*) 12.5 mg PO Q12HR [facility] Last Admin: 06/05/19 08:48 Dose: 12.5 mg Morphine Sulfate (Morphine Inj (Syringe))*) 2 mg IV Q2H PRN PRN Reason: PAIN - SEVERE Last Admin: 06/04/19 03:21 Dose: 2 mg Nystatin (Nystatin Cream*) 1 applic TOPICAL TID [facility] Last Admin: 06/05/19 14:04 Dose: Not Given Vital Signs: Temp Pulse Resp BP Pulse Ox 99.3 F 73 17 166/70 99 06/05/19 11:07 06/05/19 11:07 06/05/19 11:07 06/05/19 11:07 06/05/19 11:07 Oxygen Devices in Use Now: Tracheostomy Collar Appearance: Ms. Fortune is an older white female who is sitting in chair with LE at floor. She is breathing comfortably on 6L per trach collar. She appears to be in no acute distress. Eyes: No Scleral Icterus, PERRLA Ears/Nose/Mouth/Throat: NL Teeth, Lips, Gums, Clear Oropharnyx, Mucous Membranes Moist Neck: NL Appearance and Movements; NL JVP, Trachea Midline - tracheostomy noted without drainage, surrounding erythema Respiratory: Symmetrical Chest Expansion and Respiratory Effort, - - rhonchorous breath sounds throughout b/l lung green, without wheeze, rales Abdominal: NL Sounds; No Tenderness; No Distention, No Hepatosplenomegaly, - - flexi-seal in place with small amount of thin liquid brown stool Extremities: No Edema, No Clubbing, Cyanosis Neurological: NL Muscle Strength and Tone, - - CN II-XII grossly intact Result Diagrams: 06/03/19 04:50 06/03/19 04:50 Additional Lab and Data: Above labs were pulled into the note, when the note was edited prior to signing. Please see labs below from day of consultation. Laboratory Tests 05/26/19 05/29/19 05/29/19 04:10 05:00 05:00 WBC 7.3 Hgb 8.7 L Hct 26 L Plt Count 202 Sodium 155 H Potassium 3.4 L Chloride 119 H Carbon Dioxide 31 BUN 54 H Creatinine 1.47 H Glucose 287 H Total Protein 5.5 L Albumin 2.5 L Microbiology and Other Data: Microbiology 05/19/19 15:28 Aerobic Blood Culture - Preliminary Blood Venous No Growth Day 1 Anaerobic Blood Culture - Preliminary No Growth Day 1 05/19/19 16:50 Urine Culture - Final Urine No Growth (<1,000 CFU/mL) 05/19/19 14:14 Aerobic Blood Culture - Preliminary Blood Venous Escherichia Coli Anaerobic Blood Culture - Preliminary Escherichia Coli 05/19/19 20:00 Nasal Screen MRSA (PCR) - Final Nasal Mrsa Not Detected 05/19/19 16:50 Stool Occult Blood (GEOVANNY) - Final Stool 05/19/19 16:50 Stool Gross Appearance - Final Stool C. difficile DNA Amplification - Final 027 Presumptive NEGATIVE Toxigenic C.diff NEGATIVE Assess/Plan/Problems-Billing Assessment: 78 yof PMHxCAD s/p CABG presented to ER with nausea, vomiting, confusion and was found to be in septic shock, requiring pressors in the ICU, with severe colitis and metabolic and lactic acidosis. Hospital course was complicated by acute hypoxic respiratoy failure requiring 3 intubations and subsequently requiring trach due to laryngeal edema. - Patient Problems (1) Colitis Comment: -presents with nausea, vomiting, confusion, septic shock requiring pressors -also complicated by lactic acidosis, metabolic acidosis (resolved) -BC with E. coli bacteremia -received 10d zosyn, 4d metronidazole -stool for blood + early on in course; will recheck -currently on feeding tube -swallow study done; ST recommends reg diet, reg liquids -trial diet; patient tolerating small amount well so far -hold NGT feedings at this time -d/c FS, ss -flexi-seal in place (2) Acute and chronic respiratory failure with hypoxia Comment: -pt w intubation/extubation x3, now with tracheostomy -requiring 6L supplemental O2 -denies cough, SOB, CP -Echo from 05/21 EF 55-60%, no diastolic dysfxn -low suspicion for infectious cause as pt afebrile without leukocytosis -06/02 CXR reveals pulmonary edema -respiratory muscle weaknes due to extended mechanical ventilation 05/20-06/01 likely contributing factor -wean as able (3) E coli bacteremia Comment: -E. coli bacteremia in 2/4 bottles -on zosyn (susceptible) 05/19-05/29 -will repeat BC tomorrow a.m. (4) Anemia Comment: -stable -stool for blood + initially; suspect this was related to colitis -repeat stool for blood -iron studies, B12, folate ordered (5) Thrombocytopenia Comment: -WNL -monitor intermittently (6) Physical deconditioning Comment: -PT/OT (7) CAD (coronary artery disease) Comment: -h/o CABG -continue BB -restart statin, ARB (8) Hiatal hernia Comment: -famotidine (9) DVT prophylaxis Comment: -heparin SQ (10) Full code status Status and Disposition: Inpatient. Discharge when stable.
[2019-06-05] MEDS: Atorvastatin* 40 MG TAB PO SCH (21:20)
[2019-06-06] MEDS: Chlorhexidine MOUTHWASH 0.12%* 15 ML UDC TOPICAL SCH ×3 (00:12→08:56)
[2019-06-06] MEDS: Acetaminophen ADULT LIQ* 650 MG/20.3 ML UDC PO PRN ×2 (00:13→15:35)
[2019-06-06 05:38] LABS: ABS Basophils 0.1 10^3/ul (0-0.2); ABS Eosinophils 0.2 10^3/ul (0-0.6); ABS Lymphocytes 1.4 10^3/ul (1.0-4.8); ABS Monocytes 0.9 10^3/ul (0-0.8); ABS Neutrophils 6.4 10^3/ul (1.5-7.7); Eosinophil % 2.2 %; Hematocrit 26 % (35-47); Hemoglobin 8.9 g/dL (12.0-16.0); Lymphocyte % 15.8 %; Mean Corpuscular HGB Conc 34 g/dL (31-36); Mean Corpuscular Hemoglobin 31 pg (27-31); Mean Corpuscular Volume 92 fL (80-97); Mean Platelet Volume 10.1 fL (7.4-10.4); Platelet Count 167 10^3/uL (150-450); Red Blood Count 2.85 10^6 /uL (3.70-4.87); Red Cell Distribution Width 16 % (10-15)
[2019-06-06 06:01] LABS: Calcium 8.4 mg/dL (8.6-10.3); EGFR African American 86.9 (>60); EGFR Non-African American 71.8 (>60); Potassium 3.6 mmol/L (3.5-5.0)
--- NOTE | 2019-06-06 08:30 | PN ---
Subjective Date of Service: 06/06/19 Interval History: Transferred out of ICU 2 days ago after extensive stay. Transitioned yesterday from tube feeds to regular diet. No acute events overnight. Patient would prefer softer foods (family concerned that she was given a pork chop last night). Patient denies complaints - no pain, nausea, dyspnea. Occasional cough due to trach secretions. Objective Active Medications: Acetaminophen (Tylenol Supp*) 650 mg OK Q4H PRN PRN Reason: mild to moderate pain Acetaminophen (Tylenol Adult Liq*) 650 mg PO Q4H PRN PRN Reason: .PAIN Last Admin: 06/06/19 00:13 Dose: 650 mg Albuterol (Ventolin 2.5 Mg/3 Ml Neb.Lili*) 2.5 mg INH Q6H PRN PRN Reason: CONGESTION Last Admin: 05/29/19 09:20 Dose: 2.5 mg Atorvastatin Calcium (Lipitor*) 40 mg PO BEDTIME MJ Last Admin: 06/05/19 21:20 Dose: 40 mg Enoxaparin Sodium (Lovenox(*)) 40 mg SUBCUT BEDTIME [facility] Guaifenesin (Robitussin 100 Mg/5ml Liq) 5 ml PO Q4H PRN PRN Reason: Cough or Thick Secretions Last Admin: 06/06/19 11:29 Dose: 5 ml Heparin Sodium (Porcine) (Heparin Flush Picc/Ml/Cvc(*)) 1 - 3 ml FLUSH 0600, 1800 [facility]; Protocol Last Admin: 06/06/19 05:25 Dose: 3 ml Ferric Sodium Gluconate Complex 125 mg/ Sodium Chloride 110 mls @ 110 mls/hr IVPB DAILY [facility] Stop: 06/08/19 09:59 Last Admin: 06/06/19 09:30 Dose: 110 mls/hr Lactobacillus Rhamnosus (Lactobacillus Acidophilus*) 1 tab PO BID [facility] Last Admin: 06/06/19 08:57 Dose: 1 tab Losartan Potassium (Cozaar Tab*) 25 mg PO DAILY MJ Last Admin: 06/06/19 08:57 Dose: 25 mg Metoprolol Succinate (Toprol Xl Tab*) 25 mg PO DAILY [facility] Last Admin: 06/06/19 08:57 Dose: 25 mg Morphine Sulfate (Morphine Inj (Syringe))*) 2 mg IV Q2H PRN PRN Reason: PAIN - SEVERE Last Admin: 06/04/19 03:21 Dose: 2 mg Nystatin (Nystatin Cream*) 1 applic TOPICAL TID MJ Last Admin: 06/06/19 08:57 Dose: Not Given Vital Signs - 8 hr 06/06/19 06/06/19 06/06/19 03:30 07:30 07:48 Temperature 97.9 F 98.6 F Pulse Rate 65 67 Respiratory 16 17 Rate Blood Pressure 141/66 152/63 (mmHg) O2 Sat by Pulse 100 95 97 Oximetry 06/06/19 08:00 Temperature Pulse Rate Respiratory 17 Rate Blood Pressure (mmHg) O2 Sat by Pulse Oximetry Oxygen Devices in Use Now: Tracheostomy Collar Appearance: ill-appearing woman in NAD, pleasant and interactive Eyes: No Scleral Icterus Ears/Nose/Mouth/Throat: Clear Oropharnyx, Mucous Membranes Moist Neck: NL Appearance and Movements; NL JVP, Trachea Midline - +trach Cardiovascular: NL Sounds; No Murmurs; No JVD, RRR Abdominal: NL Sounds; No Tenderness; No Distention, No Hepatosplenomegaly Extremities: No Edema Result Diagrams: 06/06/19 05:28 06/06/19 05:28 Additional Lab and Data: Above labs were pulled into the note, when the note was edited prior to signing. Please see labs below from day of consultation. Laboratory Tests 05/26/19 05/29/19 05/29/19 04:10 05:00 05:00 WBC 7.3 Hgb 8.7 L Hct 26 L Plt Count 202 Sodium 155 H Potassium 3.4 L Chloride 119 H Carbon Dioxide 31 BUN 54 H Creatinine 1.47 H Glucose 287 H Total Protein 5.5 L Albumin 2.5 L Microbiology and Other Data: Microbiology 05/19/19 15:28 Aerobic Blood Culture - Preliminary Blood Venous No Growth Day 1 Anaerobic Blood Culture - Preliminary No Growth Day 1 05/19/19 16:50 Urine Culture - Final Urine No Growth (<1,000 CFU/mL) 05/19/19 14:14 Aerobic Blood Culture - Preliminary Blood Venous Escherichia Coli Anaerobic Blood Culture - Preliminary Escherichia Coli 05/19/19 20:00 Nasal Screen MRSA (PCR) - Final Nasal Mrsa Not Detected 05/19/19 16:50 Stool Occult Blood (GEOVANNY) - Final Stool 05/19/19 16:50 Stool Gross Appearance - Final Stool C. difficile DNA Amplification - Final 027 Presumptive NEGATIVE Toxigenic C.diff NEGATIVE Assess/Plan/Problems-Billing Assessment: 78W with CAD s/p CABG, chronic LBP, presented with nausea, vomiting, and confusion, was found to be in septic shock, requiring pressors in the ICU, with severe colitis and metabolic acidosis. Hospital course was complicated by acute hypoxic respiratoy failure requiring 3 intubations and subsequently requiring trach due to laryngeal edema. - Patient Problems (1) Acute and chronic respiratory failure with hypoxia Comment: Presented in septic shock from enteritis or colitis and E coli bacteremia, required intubation/extubation x3, now with tracheostomy. Had pulm edema on chest xray, likely from resuscitation. Echo from 05/21 EF 55-60%, no diastolic dysfxn. Low suspicion for infectious cause as pt afebrile without leukocytosis. -requiring 6L supplemental O2 -respiratory muscle weaknes due to extended mechanical ventilation 05/20-06/01 likely contributing factor -wean as able (2) Physical deconditioning Comment: Neuromuscular weakness due to critical illness. -PT/OT (3) Colitis Comment: Or enteritis? Not clear by imaging, but pt presented with GI symptoms and had E. coli in blood. Had septic shock requiring pressors, lactic acidosis, metabolic acidosis (resolved) -received 10d zosyn, 4d metronidazole -s/p feeding tube, starting mech soft diet (4) Anemia Comment: FOBT positive stool. Presented with septic shock from GI source. Otherwise, no signs of bleeding. Iron deficient. - give IV iron while admitted (5) CAD (coronary artery disease) Comment: h/o CABG -continue BB, statin, ARB (6) E coli bacteremia Current Visit: Yes Status: Acute Code(s): R78.81 - BACTEREMIA SNOMED Code( s): 724272249495 Comment: -E. coli bacteremia in 2/4 bottles -on zosyn (susceptible) 05/19-05/29 -will repeat BC tomorrow a.m. (7) Hiatal hernia Comment: - no symptoms (8) DVT prophylaxis Comment: -heparin SQ (9) Full code status Status and Disposition: Inpatient. Discharge when stable.
[2019-06-06 08:47] LABS: Magnesium 1.9 mg/dL (1.9-2.7)
[2019-06-06] MEDS: Metoprolol Succinate XL TAB* 25 MG PO SCH (08:57)
[2019-06-06] MEDS: Nystatin CREAM* 15 GM TUBE TOPICAL SCH ×3 (08:57→21:19)
[2019-06-06] MEDS: Losartan TAB* 25 MG PO SCH (08:57)
[2019-06-06] MEDS: Lactobacillus Acidophilus* 1 TAB PO SCH ×2 (08:57→20:57)
[2019-06-06] MEDS: Ferric Gluconate IV* 125 MG in NS 0.9% 100 ML* 100 ML IVPB SCH (09:30)
[2019-06-06] MEDS: guaiFENesin 100 mg/5 ml LIQ unit dose cup PO PRN ×4 (11:29→23:30)
[2019-06-06 13:27] LABS: Vitamin D Total 25(OH) 14.7 ng/mL (20-50)
[2019-06-06] MEDS: Cholecalciferol TAB* 1000 UNITS PO SCH (17:29)
[2019-06-06] MEDS: Enoxaparin(*) 40 MG/0.4 ML SYR SUBCUT SCH (20:57)
[2019-06-06] MEDS: Atorvastatin* 40 MG TAB PO SCH (20:57)
--- NOTE | 2019-06-07 08:15 | PN ---
Subjective Date of Service: 06/07/19 Interval History: No acute events overnight. Flexiseal and NG tube removed yesterday. Pt tolerating soft diet. No specific complaints or questions today. RT recommending to explore for possibility to cap or remove trach. Attempting to reach ENT. Objective Active Medications: Acetaminophen (Tylenol Adult Liq*) 650 mg PO Q4H PRN PRN Reason: .PAIN Last Admin: 06/06/19 15:35 Dose: 650 mg Albuterol (Ventolin 2.5 Mg/3 Ml Neb.Lili*) 2.5 mg INH Q6H PRN PRN Reason: CONGESTION Last Admin: 05/29/19 09:20 Dose: 2.5 mg Atorvastatin Calcium (Lipitor*) 40 mg PO BEDTIME MJ Last Admin: 06/06/19 20:57 Dose: 40 mg Cholecalciferol (Vitamin D Tab*) 2,000 units PO DAILY MJ Last Admin: 06/06/19 17:29 Dose: 2,000 units Enoxaparin Sodium (Lovenox(*)) 40 mg SUBCUT BEDTIME MJ Last Admin: 06/06/19 20:57 Dose: 40 mg Guaifenesin (Robitussin 100 Mg/5ml Liq) 5 ml PO Q4H PRN PRN Reason: Cough or Thick Secretions Last Admin: 06/06/19 23:30 Dose: 5 ml Heparin Sodium (Porcine) (Heparin Flush Picc/Ml/Cvc(*)) 1 - 3 ml FLUSH 0600, 1800 [facility]; Protocol Last Admin: 06/07/19 05:27 Dose: 3 ml Ferric Sodium Gluconate Complex 125 mg/ Sodium Chloride 110 mls @ 110 mls/hr IVPB DAILY MJ Stop: 06/08/19 09:59 Last Admin: 06/06/19 09:30 Dose: 110 mls/hr Lactobacillus Rhamnosus (Lactobacillus Acidophilus*) 1 tab PO BID MJ Last Admin: 06/06/19 20:57 Dose: 1 tab Losartan Potassium (Cozaar Tab*) 25 mg PO DAILY MJ Last Admin: 06/06/19 08:57 Dose: 25 mg Metoprolol Succinate (Toprol Xl Tab*) 25 mg PO DAILY MJ Last Admin: 06/06/19 08:57 Dose: 25 mg Morphine Sulfate (Morphine Inj (Syringe))*) 2 mg IV Q2H PRN PRN Reason: PAIN - SEVERE Last Admin: 06/04/19 03:21 Dose: 2 mg Nystatin (Nystatin Cream*) 1 applic TOPICAL TID MJ Last Admin: 06/06/19 21:19 Dose: 1 applic Vital Signs - 8 hr 06/07/19 06/07/19 03:33 07:20 Temperature 99.2 F 98.9 F Pulse Rate 88 74 Respiratory 16 15 Rate Blood Pressure 146/67 149/61 (mmHg) O2 Sat by Pulse 98 97 Oximetry Oxygen Devices in Use Now: Tracheostomy Collar Appearance: tired-appearing, NAD, alert and interactive Eyes: No Scleral Icterus Ears/Nose/Mouth/Throat: Clear Oropharnyx, Mucous Membranes Moist Neck: - - +trach, occasional thick secretion coughed Cardiovascular: RRR Abdominal: NL Sounds; No Tenderness; No Distention, No Hepatosplenomegaly Extremities: No Edema Skin: No Rash or Ulcers Neurological: Alert and Oriented x 3 Result Diagrams: 06/06/19 05:28 06/06/19 05:28 Additional Lab and Data: Above labs were pulled into the note, when the note was edited prior to signing. Please see labs below from day of consultation. Laboratory Tests 05/26/19 05/29/19 05/29/19 04:10 05:00 05:00 WBC 7.3 Hgb 8.7 L Hct 26 L Plt Count 202 Sodium 155 H Potassium 3.4 L Chloride 119 H Carbon Dioxide 31 BUN 54 H Creatinine 1.47 H Glucose 287 H Total Protein 5.5 L Albumin 2.5 L Microbiology and Other Data: Microbiology 05/19/19 15:28 Aerobic Blood Culture - Preliminary Blood Venous No Growth Day 1 Anaerobic Blood Culture - Preliminary No Growth Day 1 05/19/19 16:50 Urine Culture - Final Urine No Growth (<1,000 CFU/mL) 05/19/19 14:14 Aerobic Blood Culture - Preliminary Blood Venous Escherichia Coli Anaerobic Blood Culture - Preliminary Escherichia Coli 05/19/19 20:00 Nasal Screen MRSA (PCR) - Final Nasal Mrsa Not Detected 05/19/19 16:50 Stool Occult Blood (GEOVANNY) - Final Stool 05/19/19 16:50 Stool Gross Appearance - Final Stool C. difficile DNA Amplification - Final 027 Presumptive NEGATIVE Toxigenic C.diff NEGATIVE Assess/Plan/Problems-Billing Assessment: 78W with CAD s/p CABG, chronic LBP, presented with nausea, vomiting, and confusion, was found to be in septic shock, requiring pressors in the ICU, with possible enteritis or colitis and metabolic acidosis. Hospital course was complicated by acute hypoxic respiratoy failure requiring 3 intubations and subsequently requiring trach due to laryngeal edema. - Patient Problems (1) Acute and chronic respiratory failure with hypoxia Comment: Presented in septic shock from enteritis or colitis and E coli bacteremia, required intubation/extubation x3, now with tracheostomy (06/01). Had pulm edema on chest xray, likely from resuscitation. Echo from 05/21 EF 55- 60%, no diastolic dysfxn. Low suspicion for infectious cause as pt afebrile without leukocytosis. -respiratory muscle weaknes due to extended mechanical ventilation 05/20-06/01 likely contributing factor - ENT to eval pt tomorrow, plan for cap trial with RT (2) Physical deconditioning Comment: Neuromuscular weakness due to critical illness. -PT/OT, PMRU eval (3) Colitis Comment: Or enteritis? Not clear by imaging, but pt presented with GI symptoms and had E. coli in blood. Had septic shock requiring pressors, lactic acidosis, metabolic acidosis (resolved) -received 10d zosyn, 4d metronidazole -s/p feeding tube, starting mech soft diet (4) Anemia Comment: FOBT positive stool. Presented with septic shock from GI source. Otherwise, no signs of bleeding. Iron deficient. - give IV iron while admitted (5) CAD (coronary artery disease) Comment: h/o CABG -continue BB, statin, ARB (6) E coli bacteremia Current Visit: Yes Status: Acute Code(s): R78.81 - BACTEREMIA SNOMED Code( s): 746390874235 Comment: -E. coli bacteremia in 2/4 bottles -on zosyn (susceptible) 05/19-05/29 (7) Hiatal hernia Comment: - no symptoms (8) DVT prophylaxis Comment: -heparin SQ (9) Full code status Status and Disposition: Inpatient. Discharge when stable.
[2019-06-07] MEDS: Lactobacillus Acidophilus* 1 TAB PO SCH ×2 (08:47→23:20)
[2019-06-07] MEDS: Losartan TAB* 25 MG PO SCH (08:47)
[2019-06-07] MEDS: Metoprolol Succinate XL TAB* 25 MG PO SCH (08:47)
[2019-06-07] MEDS: guaiFENesin 100 mg/5 ml LIQ unit dose cup PO PRN (08:47)
[2019-06-07] MEDS: Cholecalciferol TAB* 1000 UNITS PO SCH (08:47)
[2019-06-07] MEDS: Ferric Gluconate IV* 125 MG in NS 0.9% 100 ML* 100 ML IVPB SCH (08:51)
[2019-06-07] MEDS: Multivitamins ADULT w/MIN LIQ* 15 ML UDC PO SCH (09:25)
[2019-06-07] MEDS: Nystatin CREAM* 15 GM TUBE TOPICAL SCH ×3 (09:28→23:23)
[2019-06-07] MEDS: Enoxaparin(*) 40 MG/0.4 ML SYR SUBCUT SCH (23:21)
[2019-06-07] MEDS: Atorvastatin* 40 MG TAB PO SCH (23:21)
[2019-06-08 05:14] LABS: Hematocrit 26 % (35-47); Hemoglobin 8.6 g/dL (12.0-16.0); Mean Corpuscular HGB Conc 34 g/dL (31-36); Mean Corpuscular Hemoglobin 31 pg (27-31); Mean Corpuscular Volume 91 fL (80-97); Mean Platelet Volume 10.8 fL (7.4-10.4); Platelet Count 127 10^3/uL (150-450); Red Blood Count 2.84 10^6 /uL (3.70-4.87); Red Cell Distribution Width 15 % (10-15); White Blood Count 8.8 10^3/uL (3.5-10.8)
[2019-06-08 05:25] LABS: Anion Gap 8 mmol/L (2-11); BUN/Creatinine Ratio 26.1 (8-20); Blood Urea Nitrogen 18 mg/dL (6-24); CO2 Carbon Dioxide 21 mmol/L (22-32); Calcium 7.8 mg/dL (8.6-10.3); Chloride 109 mmol/L (101-111); EGFR African American 100.1 (>60); EGFR Non-African American 82.7 (>60); Glucose 122 mg/dL (70-100); Magnesium 1.6 mg/dL (1.9-2.7); Potassium 3.2 mmol/L (3.5-5.0); Sodium 138 mmol/L (135-145)
[2019-06-08 05:51] LABS: % Iron Saturation 17 % (15-55); Iron 44 ug/dL (50-212); Total Iron Binding Capacity 260 mcg/dL (250-450); Transferrin 186 mg/dL (203-362)
[2019-06-08] MEDS ORDERED: Potassium Chlor TAB* 20 MEQ TAB.ER PO ONE (08:55)
[2019-06-08] MEDS ORDERED: Magnesium Sulfate 2 GM IV* 2 GM/50 ML BAG IVPB ONE (08:55)
[2019-06-08] MEDS: Lactobacillus Acidophilus* 1 TAB PO SCH ×2 (08:56→20:54)
[2019-06-08] MEDS: Metoprolol Succinate XL TAB* 25 MG PO SCH (08:56)
[2019-06-08] MEDS: Losartan TAB* 25 MG PO SCH ×2 (08:56→11:37)
[2019-06-08] MEDS: Cholecalciferol TAB* 1000 UNITS PO SCH (08:59)
[2019-06-08] MEDS: Multivitamins ADULT w/MIN LIQ* 15 ML UDC PO SCH (09:00)
--- NOTE | 2019-06-08 09:01 | PN ---
Subjective Date of Service: 06/08/19 Interval History: No acute events overnight. Plan for trach cap trial today. NG tube and Flexiseal are out. Pt tolerating mech soft diet. Requiring K/Mg repletion. Also getting IV iron. Fever to 100.8 today without new focal symptoms. Continues to express trach secretions with cough, but no change from prior. CXR without focal consolidation. BCx and UA collected. Pt denies worsening of cough. Denies chills, vomiting, chest or abd pain, dysuria. Still with incontinence of bowel/bladder. Objective Active Medications: Acetaminophen (Tylenol Adult Liq*) 650 mg PO Q4H PRN PRN Reason: .PAIN Last Admin: 06/08/19 14:50 Dose: 650 mg Albuterol (Ventolin 2.5 Mg/3 Ml Neb.Lili*) 2.5 mg INH Q6H PRN PRN Reason: CONGESTION Last Admin: 05/29/19 09:20 Dose: 2.5 mg Atorvastatin Calcium (Lipitor*) 40 mg PO BEDTIME MJ Last Admin: 06/07/19 23:21 Dose: 40 mg Cholecalciferol (Vitamin D Tab*) 2,000 units PO DAILY MJ Last Admin: 06/08/19 08:59 Dose: 2,000 units Enoxaparin Sodium (Lovenox(*)) 40 mg SUBCUT BEDTIME MJ Last Admin: 06/07/19 23:21 Dose: 40 mg Guaifenesin (Robitussin 100 Mg/5ml Liq) 5 ml PO Q4H PRN PRN Reason: Cough or Thick Secretions Last Admin: 06/07/19 08:47 Dose: 5 ml Heparin Sodium (Porcine) (Heparin Flush Picc/Ml/Cvc(*)) 1 - 3 ml FLUSH 0600, 1800 [facility]; Protocol Last Admin: 06/08/19 12:54 Dose: 1 ml Ferric Sodium Gluconate Complex 125 mg/ Sodium Chloride 110 mls @ 110 mls/hr IVPB DAILY MJ Stop: 06/10/19 09:59 Last Admin: 06/08/19 11:29 Dose: 110 mls/hr Potassium Chloride (Potassium Chloride 20 Meq/100 Ml Ivpremix*) 20 meq in 100 mls @ 50 mls/hr IV Q2H MJ Stop: 06/08/19 15:59 Last Admin: 06/08/19 12:45 Dose: 50 mls/hr Lactated Ringer's (Lactated Ringers 1000 Ml Bag*) 1,000 mls @ 0 mls/hr IV WIDE OPEN MJ Stop: 06/08/19 23:59 Last Admin: 06/08/19 14:43 Dose: 999 mls/hr Lactobacillus Rhamnosus (Lactobacillus Acidophilus*) 1 tab PO BID [facility] Last Admin: 06/08/19 08:56 Dose: 1 tab Losartan Potassium (Cozaar Tab*) 50 mg PO DAILY [facility] Last Admin: 06/08/19 11:37 Dose: Not Given Metoprolol Succinate (Toprol Xl Tab*) 25 mg PO DAILY [facility] Last Admin: 06/08/19 08:56 Dose: 25 mg Multivitamins (Theragran W/Minerals Liq*) 15 ml PO DAILY [facility] Last Admin: 06/08/19 09:00 Dose: 15 ml Nystatin (Nystatin Cream*) 1 applic TOPICAL TID [facility] Last Admin: 06/08/19 14:55 Dose: 1 applic Ondansetron HCl (Zofran Inj*) 4 mg IV Q6H PRN PRN Reason: NAUSEA Last Admin: 06/08/19 11:26 Dose: 4 mg Vital Signs - 8 hr 06/08/19 06/08/19 06/08/19 03:37 07:33 08:00 Temperature 98.4 F 98.0 F Pulse Rate 78 84 Respiratory 17 16 18 Rate Blood Pressure 150/59 168/74 (mmHg) O2 Sat by Pulse 99 100 Oximetry Oxygen Devices in Use Now: Tracheostomy Collar Appearance: tired-appearing, less interactive than yesterday but alert, makes eye contact, declines to write on white board Eyes: No Scleral Icterus Ears/Nose/Mouth/Throat: Clear Oropharnyx, Mucous Membranes Moist Neck: - - +trach, cough productive of thick white sputum Respiratory: Clear to Auscultation - anteriorly Cardiovascular: NL Sounds; No Murmurs; No JVD, RRR Abdominal: NL Sounds; No Tenderness; No Distention, No Hepatosplenomegaly Extremities: No Edema Result Diagrams: 06/08/19 04:59 06/08/19 04:59 Additional Lab and Data: Above labs were pulled into the note, when the note was edited prior to signing. Please see labs below from day of consultation. Laboratory Tests 05/26/19 05/29/19 05/29/19 04:10 05:00 05:00 WBC 7.3 Hgb 8.7 L Hct 26 L Plt Count 202 Sodium 155 H Potassium 3.4 L Chloride 119 H Carbon Dioxide 31 BUN 54 H Creatinine 1.47 H Glucose 287 H Total Protein 5.5 L Albumin 2.5 L Microbiology and Other Data: Microbiology 05/19/19 15:28 Aerobic Blood Culture - Preliminary Blood Venous No Growth Day 1 Anaerobic Blood Culture - Preliminary No Growth Day 1 05/19/19 16:50 Urine Culture - Final Urine No Growth (<1,000 CFU/mL) 05/19/19 14:14 Aerobic Blood Culture - Preliminary Blood Venous Escherichia Coli Anaerobic Blood Culture - Preliminary Escherichia Coli 05/19/19 20:00 Nasal Screen MRSA (PCR) - Final Nasal Mrsa Not Detected 05/19/19 16:50 Stool Occult Blood (GEOVANNY) - Final Stool 05/19/19 16:50 Stool Gross Appearance - Final Stool C. difficile DNA Amplification - Final 027 Presumptive NEGATIVE Toxigenic C.diff NEGATIVE Assess/Plan/Problems-Billing Assessment: 78W with CAD s/p CABG, chronic LBP, presented with nausea, vomiting, and confusion, was found to be in septic shock, requiring pressors in the ICU, with possible enteritis or colitis and metabolic acidosis. Hospital course was complicated by acute hypoxic respiratoy failure requiring 3 intubations and subsequently requiring trach due to laryngeal edema. - Patient Problems (1) Acute and chronic respiratory failure with hypoxia Comment: Presented in septic shock from enteritis or colitis and E coli bacteremia, required intubation/extubation x3, now with tracheostomy (06/01). Had pulm edema on chest xray, likely from resuscitation fliuds. EF 55-60%, no diastolic dysfxn. Low suspicion for infection as pt afebrile without leukocytosis. -respiratory muscle weaknes due to extended mechanical ventilation 05/20-06/01 likely contributing factor - ENT to see pt today, plan for cap trial with RT (2) Physical deconditioning Comment: Neuromuscular weakness due to critical illness. -PT/OT, PMRU eval (3) Colitis Comment: Or enteritis? Not clear by imaging, but pt presented with GI symptoms and had E. coli in blood. Had septic shock requiring pressors, lactic acidosis, metabolic acidosis (resolved) -received 10d zosyn, 4d metronidazole -s/p feeding tube, starting mech soft diet (4) Anemia Comment: FOBT positive stool. Presented with septic shock from GI source. Otherwise, no signs of bleeding. Iron deficient. - give IV iron while admitted (5) CAD (coronary artery disease) Comment: h/o CABG -continue BB, statin (6) E coli bacteremia Comment: -E. coli bacteremia in 2/4 bottles -on zosyn (susceptible) 05/19-05/29 (7) Hiatal hernia Comment: - no symptoms (8) Hypertension Comment: - increase home losartan to 50mg daily (9) Thrombocytopenia Comment: Likely from sepsis. - cont to monitor (10) DVT prophylaxis Comment: -heparin SQ (11) Full code status Status and Disposition: Inpatient. Discharge when stable.
[2019-06-08] MEDS: Nystatin CREAM* 15 GM TUBE TOPICAL SCH ×3 (10:10→20:59)
[2019-06-08] MEDS ORDERED: NS 0.9% 250 ML* 250 ML ONE (10:22)
[2019-06-08] MEDS: KCL 20 MEQ/100 ML IVPREMIX* 20 MEQ/100 ML BAG IV SCH ×3 (10:30→16:11)
[2019-06-08] MEDS ORDERED: Ondansetron INJ* 2 MG/ML VIAL IV PRN (11:20)
[2019-06-08] MEDS ORDERED: Ondansetron INJ* 2 MG/ML VIAL ONE (11:23)
[2019-06-08] MEDS: Ferric Gluconate IV* 125 MG in NS 0.9% 100 ML* 100 ML IVPB SCH (11:29)
[2019-06-08] MEDS ORDERED: Lactated Ringers 1000 ML Bag* 1,000 ML IV SCH (14:02)
[2019-06-08] MEDS: Acetaminophen ADULT LIQ* 650 MG/20.3 ML UDC PO PRN (14:50)
[2019-06-08] MEDS: Atorvastatin* 40 MG TAB PO SCH (20:54)
[2019-06-08] MEDS: Enoxaparin(*) 40 MG/0.4 ML SYR SUBCUT SCH (20:56)
[2019-06-09 06:18] LABS: Hematocrit 23 % (35-47); Hemoglobin 7.5 g/dL (12.0-16.0); Mean Corpuscular HGB Conc 33 g/dL (31-36); Mean Corpuscular Hemoglobin 30 pg (27-31); Mean Corpuscular Volume 91 fL (80-97); Mean Platelet Volume 10.1 fL (7.4-10.4); Platelet Count 124 10^3/uL (150-450); Red Blood Count 2.48 10^6 /uL (3.70-4.87); Red Cell Distribution Width 16 % (10-15)
[2019-06-09 06:39] LABS: BUN/Creatinine Ratio 25.7 (8-20); Calcium 7.3 mg/dL (8.6-10.3); EGFR African American 98.4 (>60); EGFR Non-African American 81.4 (>60); Potassium 3.7 mmol/L (3.5-5.0)
--- NOTE | 2019-06-09 07:52 | PN ---
Subjective Date of Service: 06/09/19 Interval History: Plan was to do trach cap trial yesterday, but due to her developing fever- this was held off. One time fever. She reports no trouble with breathing, no cough, no chills. Family History: Unchanged from Admission Social History: Unchanged from Admission Past Medical History: Unchanged from Admission Objective Active Medications: Acetaminophen (Tylenol Adult Liq*) 650 mg PO Q4H PRN PRN Reason: .PAIN Last Admin: 06/08/19 14:50 Dose: 650 mg Albuterol (Ventolin 2.5 Mg/3 Ml Neb.Lili*) 2.5 mg INH Q6H PRN PRN Reason: CONGESTION Last Admin: 05/29/19 09:20 Dose: 2.5 mg Atorvastatin Calcium (Lipitor*) 40 mg PO BEDTIME MJ Last Admin: 06/08/19 20:54 Dose: 40 mg Cholecalciferol (Vitamin D Tab*) 2,000 units PO DAILY MJ Last Admin: 06/08/19 08:59 Dose: 2,000 units Enoxaparin Sodium (Lovenox(*)) 40 mg SUBCUT BEDTIME MJ Last Admin: 06/08/19 20:56 Dose: 40 mg Guaifenesin (Robitussin 100 Mg/5ml Liq) 5 ml PO Q4H PRN PRN Reason: Cough or Thick Secretions Last Admin: 06/07/19 08:47 Dose: 5 ml Heparin Sodium (Porcine) (Heparin Flush Picc/Ml/Cvc(*)) 1 - 3 ml FLUSH 0600, 1800 MJ; Protocol Last Admin: 06/09/19 06:04 Dose: 3 ml Ferric Sodium Gluconate Complex 125 mg/ Sodium Chloride 110 mls @ 110 mls/hr IVPB DAILY [facility] Stop: 06/10/19 09:59 Last Admin: 06/08/19 11:29 Dose: 110 mls/hr Lactobacillus Rhamnosus (Lactobacillus Acidophilus*) 1 tab PO BID [facility] Last Admin: 06/08/19 20:54 Dose: 1 tab Losartan Potassium (Cozaar Tab*) 50 mg PO DAILY MJ Last Admin: 06/08/19 11:37 Dose: Not Given Metoprolol Succinate (Toprol Xl Tab*) 25 mg PO DAILY [facility] Last Admin: 06/08/19 08:56 Dose: 25 mg Multivitamins (Theragran W/Minerals Liq*) 15 ml PO DAILY [facility] Last Admin: 06/08/19 09:00 Dose: 15 ml Nystatin (Nystatin Cream*) 1 applic TOPICAL TID [facility] Last Admin: 06/08/19 20:59 Dose: 1 applic Ondansetron HCl (Zofran Inj*) 4 mg IV Q6H PRN PRN Reason: NAUSEA Last Admin: 06/08/19 11:26 Dose: 4 mg Vital Signs - 8 hr 06/09/19 03:14 Temperature 97.4 F Pulse Rate 68 Respiratory 18 Rate Blood Pressure 127/52 (mmHg) O2 Sat by Pulse 100 Oximetry Oxygen Devices in Use Now: Tracheostomy Collar - to 35% Appearance: Elderly female. Lying in bed, not in distress. communicates by nodding yes and no. Eyes: PERRLA Neck: - - Trach collar noted- with no surrounding erythema or drainage. Respiratory: Symmetrical Chest Expansion and Respiratory Effort, Clear to Auscultation Cardiovascular: RRR, No Edema, - - soft systolic murmur at hte apex. Abdominal: NL Sounds; No Tenderness; No Distention, No Hepatosplenomegaly Skin: No Rash or Ulcers Neurological: - - decrease strength but moving all four extremities Result Diagrams: 06/09/19 06:05 06/09/19 06:05 Additional Lab and Data: Above labs were pulled into the note, when the note was edited prior to signing. Please see labs below from day of consultation. Laboratory Tests 05/26/19 05/29/19 05/29/19 04:10 05:00 05:00 WBC 7.3 Hgb 8.7 L Hct 26 L Plt Count 202 Sodium 155 H Potassium 3.4 L Chloride 119 H Carbon Dioxide 31 BUN 54 H Creatinine 1.47 H Glucose 287 H Total Protein 5.5 L Albumin 2.5 L Microbiology and Other Data: Microbiology 06/06/19 05:28 Aerobic Blood Culture - Preliminary No Source Provided No Growth Day 3 Anaerobic Blood Culture - Preliminary No Growth Day 3 06/06/19 05:28 Aerobic Blood Culture - Preliminary No Source Provided No Growth Day 3 Anaerobic Blood Culture - Preliminary No Growth Day 3 05/27/19 08:30 Gram Stain - Final Sputum Sputum Culture - Final YEAST 05/19/19 15:28 Aerobic Blood Culture - Final Blood Venous No Growth Day 5 Anaerobic Blood Culture - Final No Growth Day 5 05/20/19 22:00 Stool Culture - Final Stool Stool Gross Appearance - Final Shiga Toxin I & II - Final Stool Lactoferrin - Final 05/19/19 14:14 Aerobic Blood Culture - Final Blood Venous Escherichia Coli Anaerobic Blood Culture - Final Escherichia Coli 05/19/19 16:50 Urine Culture - Final Urine No Growth (<1,000 CFU/mL) 05/19/19 20:00 Nasal Screen MRSA (PCR) - Final Nasal Mrsa Not Detected 05/19/19 16:50 Stool Occult Blood (GEOVANNY) - Final Stool 05/19/19 16:50 Stool Gross Appearance - Final Stool C. difficile DNA Amplification - Final 027 Presumptive NEGATIVE Toxigenic C.diff NEGATIVE Assess/Plan/Problems-Billing Assessment: 78W with CAD s/p CABG, chronic LBP, presented with nausea, vomiting, and confusion, was found to be in septic shock, requiring pressors in the ICU, with possible enteritis or colitis and metabolic acidosis. Hospital course was complicated by acute hypoxic respiratoy failure requiring 3 intubations and subsequently requiring trach due to laryngeal edema, and E.Coli bactremia. - Patient Problems (1) Acute and chronic respiratory failure with hypoxia Current Visit: Yes Status: Acute Code(s): J96.21 - ACUTE AND CHRONIC RESPIRATORY FAILURE WITH HYPOXIA SNOMED Code(s): 52106075 Comment: Presented in septic shock from enteritis or colitis and E coli bacteremia, required intubation/extubation x3, now with tracheostomy (06/01). Had pulm edema on chest xray, likely from resuscitation fliuds. EF 55-60%, no diastolic dysfxn. - 06/08, fever, 06/09 mild leukocytosis, blood cultures pending, cxr does not show a pneumonia process. -respiratory muscle weaknes due to extended mechanical ventilation 05/20-06/01 likely contributing factor - will follow up with ENT regarding trach cap trial. (2) Anemia Current Visit: Yes Status: Acute Code(s): D64.9 - ANEMIA, UNSPECIFIED SNOMED Code(s): 380978002 Comment: FOBT positive stool. Presented with septic shock from GI source. Otherwise, no signs of bleeding. Iron deficient. - give IV iron while admitted X 5 doses: 06/06-06/10, after which will give PO iron. - will add pantoprazole today - transfuse if Hb < 7.0 (3) CAD (coronary artery disease) Current Visit: Yes Status: Acute Code(s): I25.10 - ATHSCL HEART DISEASE OF [place] CORONARY ARTERY W/O ANG PCTRS SNOMED Code(s): 38875643 Comment: h/o CABG -continue BB, statin (4) Colitis Current Visit: Yes Status: Acute Code(s): K52.9 - NONINFECTIVE GASTROENTERITIS AND COLITIS, UNSPECIFIED SNOMED Code(s): 07128527 Comment: Or enteritis? Not clear by imaging, but pt presented with GI symptoms and had E. coli in blood. Had septic shock requiring pressors, lactic acidosis, metabolic acidosis (resolved) -received 10d zosyn, 4d metronidazole -s/p feeding tube, starting mech soft diet (5) DVT prophylaxis Current Visit: Yes Status: Acute Code(s): Z29.9 - ENCOUNTER FOR PROPHYLACTIC MEASURES, UNSPECIFIED SNOMED Code(s): 598986901 Comment: -heparin SQ (6) E coli bacteremia Current Visit: Yes Status: Acute Code(s): R78.81 - BACTEREMIA SNOMED Code( s): 855547198702 Comment: -E. coli bacteremia in 2/4 bottles Completed 10 days of Zosyn: 05/19-05/29 Repeat cultures pending. (7) Full code status Current Visit: Yes Status: Acute Code(s): Z78.9 - OTHER SPECIFIED HEALTH STATUS SNOMED Code(s): 097320914 (8) Hiatal hernia Current Visit: Yes Status: Acute Code(s): K44.9 - DIAPHRAGMATIC HERNIA WITHOUT OBSTRUCTION OR GANGRENE SNOMED Code(s): 51811823 Comment: - no symptoms PPI added. (9) Hypertension Current Visit: Yes Status: Acute Code(s): I10 - ESSENTIAL (PRIMARY) HYPERTENSION SNOMED Code(s): 52199844 Comment: 06/08: home dose losartan was increased to 50mg daily. (10) Physical deconditioning Current Visit: Yes Status: Acute Code(s): R53.81 - OTHER MALAISE SNOMED Code(s): 12523684329196 Comment: Neuromuscular weakness due to critical illness. -PT/OT, PMRU eval (11) Thrombocytopenia Current Visit: Yes Status: Acute Code(s): D69.6 - THROMBOCYTOPENIA, UNSPECIFIED SNOMED Code(s): 168558536 Comment: Likely from sepsis. - cont to monitor Status and Disposition: Will need placement.
[2019-06-09] MEDS: guaiFENesin 100 mg/5 ml LIQ unit dose cup PO PRN ×2 (09:38→21:17)
[2019-06-09] MEDS: Cholecalciferol TAB* 1000 UNITS PO SCH (09:39)
[2019-06-09] MEDS: Lactobacillus Acidophilus* 1 TAB PO SCH ×2 (09:39→21:17)
[2019-06-09] MEDS: Multivitamins ADULT w/MIN LIQ* 15 ML UDC PO SCH (09:39)
[2019-06-09] MEDS: Losartan TAB* 25 MG PO SCH (09:39)
[2019-06-09] MEDS: Metoprolol Succinate XL TAB* 25 MG PO SCH (09:39)
[2019-06-09] MEDS: Pantoprazole TAB * 40 MG TAB PO SCH (09:40)
[2019-06-09] MEDS: Nystatin CREAM* 15 GM TUBE TOPICAL SCH ×3 (09:40→21:19)
[2019-06-09] MEDS: Ferric Gluconate IV* 125 MG in NS 0.9% 100 ML* 100 ML IVPB SCH (11:07)
[2019-06-09 17:50] LABS: Urine Appearance Cloudy; Urine Bilirubin Negative (Negative); Urine Blood 1+ (Negative); Urine Color Yellow; Urine Glucose Negative (Negative); Urine Ketones Negative (Negative); Urine Nitrite Positive (Negative); Urine Protein Negative (Negative); Urine Specific Gravity 1.006 (1.010-1.030); Urine Urobilinogen Negative (Negative)
[2019-06-09 17:53] LABS: Urine Bacteria 2+ (Absent); Urine Red Blood Cell 2+(6-10/hpf) (Absent); Urine Squamous Epithelial Cell Present (Absent); Urine White Blood Cell 3+(>20/hpf) (Absent)
[2019-06-09] MEDS: Atorvastatin* 40 MG TAB PO SCH (21:17)
[2019-06-09] MEDS: Enoxaparin(*) 40 MG/0.4 ML SYR SUBCUT SCH (21:17)
[2019-06-10] MEDS: guaiFENesin 100 mg/5 ml LIQ unit dose cup PO PRN (01:32)
[2019-06-10 05:43] LABS: ABS Eosinophils 0.2 10^3/ul (0-0.6); ABS Lymphocytes 1.1 10^3/ul (1.0-4.8); ABS Monocytes 1.1 10^3/ul (0-0.8); ABS Neutrophils 6.4 10^3/ul (1.5-7.7); Eosinophil % 2.6 %; Hematocrit 23 % (35-47); Hemoglobin 7.7 g/dL (12.0-16.0); Lymphocyte % 12.9 %; Mean Corpuscular HGB Conc 34 g/dL (31-36); Mean Corpuscular Hemoglobin 31 pg (27-31); Mean Corpuscular Volume 92 fL (80-97); Mean Platelet Volume 10.5 fL (7.4-10.4); Platelet Count 122 10^3/uL (150-450); Red Blood Count 2.45 10^6 /uL (3.70-4.87); Red Cell Distribution Width 16 % (10-15); White Blood Count 8.9 10^3/uL (3.5-10.8)
[2019-06-10 05:56] LABS: BUN/Creatinine Ratio 18.2 (8-20); Calcium 7.5 mg/dL (8.6-10.3); EGFR African American 105.4 (>60); EGFR Non-African American 87.1 (>60); Potassium 3.5 mmol/L (3.5-5.0)
[2019-06-10 07:40] VITALS: BP 137/58
[2019-06-10] MEDS ORDERED: Amoxicillin/Clavulanate TAB* 875 MG PO SCH (09:00)
[2019-06-10] MEDS: Pantoprazole TAB * 40 MG TAB PO SCH (09:13)
[2019-06-10] MEDS: Lactobacillus Acidophilus* 1 TAB PO SCH (09:14)
[2019-06-10] MEDS: Cholecalciferol TAB* 1000 UNITS PO SCH (09:14)
[2019-06-10] MEDS: Losartan TAB* 25 MG PO SCH (09:14)
[2019-06-10] MEDS: Multivitamins ADULT w/MIN LIQ* 15 ML UDC PO SCH (09:15)
[2019-06-10] MEDS: Metoprolol Succinate XL TAB* 25 MG PO SCH (09:15)
[2019-06-10] MEDS: Nystatin CREAM* 15 GM TUBE TOPICAL SCH (09:15)
[2019-06-10] MEDS: Ferric Gluconate IV* 125 MG in NS 0.9% 100 ML* 100 ML IVPB SCH (09:25)
--- NOTE | 2019-06-10 10:07 | PN ---
Subjective Date of Service: 06/10/19 Interval History: No acute issues overnight Abnormal urinalysis Has tracheotomy- communicates via nodding. Family History: Unchanged from Admission Social History: Unchanged from Admission Past Medical History: Unchanged from Admission Objective Active Medications: Acetaminophen (Tylenol Adult Liq*) 650 mg PO Q4H PRN PRN Reason: .PAIN Last Admin: 06/08/19 14:50 Dose: 650 mg Albuterol (Ventolin 2.5 Mg/3 Ml Neb.Lili*) 2.5 mg INH Q6H PRN PRN Reason: CONGESTION Last Admin: 05/29/19 09:20 Dose: 2.5 mg Amoxicillin/Clavulanate Potassium (Augmentin Tab*) 875 mg PO BID MJ Last Admin: 06/10/19 09:14 Dose: 875 mg Atorvastatin Calcium (Lipitor*) 40 mg PO BEDTIME MJ Last Admin: 06/09/19 21:17 Dose: 40 mg Cholecalciferol (Vitamin D Tab*) 2,000 units PO DAILY MJ Last Admin: 06/10/19 09:14 Dose: 2,000 units Enoxaparin Sodium (Lovenox(*)) 40 mg SUBCUT BEDTIME MJ Last Admin: 06/09/19 21:17 Dose: 40 mg Guaifenesin (Robitussin 100 Mg/5ml Liq) 5 ml PO Q4H PRN PRN Reason: Cough or Thick Secretions Last Admin: 06/10/19 01:32 Dose: 5 ml Heparin Sodium (Porcine) (Heparin Flush Picc/Ml/Cvc(*)) 1 - 3 ml FLUSH 0600, 1800 [facility]; Protocol Last Admin: 06/10/19 05:22 Dose: 1 ml Lactobacillus Rhamnosus (Lactobacillus Acidophilus*) 1 tab PO BID MJ Last Admin: 06/10/19 09:14 Dose: 1 tab Losartan Potassium (Cozaar Tab*) 50 mg PO DAILY MJ Last Admin: 06/10/19 09:14 Dose: 50 mg Metoprolol Succinate (Toprol Xl Tab*) 25 mg PO DAILY MJ Last Admin: 06/10/19 09:15 Dose: 25 mg Multivitamins (Theragran W/Minerals Liq*) 15 ml PO DAILY MJ Last Admin: 06/10/19 09:15 Dose: 15 ml Nystatin (Nystatin Cream*) 1 applic TOPICAL TID MJ Last Admin: 06/10/19 09:15 Dose: Not Given Ondansetron HCl (Zofran Inj*) 4 mg IV Q6H PRN PRN Reason: NAUSEA Last Admin: 06/08/19 11:26 Dose: 4 mg Pantoprazole Sodium (Protonix Tab*) 40 mg PO DAILY [facility] Last Admin: 06/10/19 09:13 Dose: 40 mg Vital Signs - 8 hr 06/10/19 06/10/19 06/10/19 04:16 07:12 07:43 Temperature 98.5 F 98.6 F Pulse Rate 73 66 Respiratory 16 20 20 Rate Blood Pressure 124/55 137/58 (mmHg) O2 Sat by Pulse 100 100 Oximetry Oxygen Devices in Use Now: OxyTrach Appearance: elderly female, lying in bed, not in distress Eyes: PERRLA Ears/Nose/Mouth/Throat: Mucous Membranes Moist Neck: - - tracheostomy site noted with no surrounding swelling. Respiratory: Symmetrical Chest Expansion and Respiratory Effort, Clear to Auscultation Cardiovascular: NL Sounds; No Murmurs; No JVD, RRR, No Edema Abdominal: NL Sounds; No Tenderness; No Distention, No Hepatosplenomegaly Extremities: No Edema Neurological: NL Muscle Strength and Tone, - - folllows commands. Result Diagrams: 06/10/19 05:30 06/10/19 05:30 Additional Lab and Data: Above labs were pulled into the note, when the note was edited prior to signing. Please see labs below from day of consultation. Laboratory Tests 05/26/19 05/29/19 05/29/19 04:10 05:00 05:00 WBC 7.3 Hgb 8.7 L Hct 26 L Plt Count 202 Sodium 155 H Potassium 3.4 L Chloride 119 H Carbon Dioxide 31 BUN 54 H Creatinine 1.47 H Glucose 287 H Total Protein 5.5 L Albumin 2.5 L Microbiology and Other Data: Microbiology 06/06/19 05:28 Aerobic Blood Culture - Preliminary No Source Provided No Growth Day 3 Anaerobic Blood Culture - Preliminary No Growth Day 3 06/06/19 05:28 Aerobic Blood Culture - Preliminary No Source Provided No Growth Day 3 Anaerobic Blood Culture - Preliminary No Growth Day 3 05/27/19 08:30 Gram Stain - Final Sputum Sputum Culture - Final YEAST 05/19/19 15:28 Aerobic Blood Culture - Final Blood Venous No Growth Day 5 Anaerobic Blood Culture - Final No Growth Day 5 05/20/19 22:00 Stool Culture - Final Stool Stool Gross Appearance - Final Shiga Toxin I & II - Final Stool Lactoferrin - Final 05/19/19 14:14 Aerobic Blood Culture - Final Blood Venous Escherichia Coli Anaerobic Blood Culture - Final Escherichia Coli 05/19/19 16:50 Urine Culture - Final Urine No Growth (<1,000 CFU/mL) 05/19/19 20:00 Nasal Screen MRSA (PCR) - Final Nasal Mrsa Not Detected 05/19/19 16:50 Stool Occult Blood (GEOVANNY) - Final Stool 05/19/19 16:50 Stool Gross Appearance - Final Stool C. difficile DNA Amplification - Final 027 Presumptive NEGATIVE Toxigenic C.diff NEGATIVE Assess/Plan/Problems-Billing Assessment: 78W with CAD s/p CABG, chronic LBP, presented with nausea, vomiting, and confusion, was found to be in septic shock, requiring pressors in the ICU, with possible enteritis or colitis and metabolic acidosis. Hospital course was complicated by acute hypoxic respiratoy failure requiring 3 intubations and subsequently requiring trach due to laryngeal edema, and E.Coli bactremia. - Patient Problems (1) Acute and chronic respiratory failure with hypoxia Current Visit: Yes Status: Acute Code(s): J96.21 - ACUTE AND CHRONIC RESPIRATORY FAILURE WITH HYPOXIA SNOMED Code(s): 27496402 Comment: Presented in septic shock from enteritis or colitis and E coli bacteremia, required intubation/extubation x3, now with tracheostomy (06/01). Had pulm edema on chest xray, likely from resuscitation fliuds. EF 55-60%, no diastolic dysfxn. - 06/08, fever, 06/09 mild leukocytosis, blood cultures pending, cxr does not show a pneumonia process. -respiratory muscle weaknes due to extended mechanical ventilation 05/20-06/01 likely contributing factor - will follow up with ENT regarding trach cap trial. (2) Anemia Current Visit: Yes Status: Acute Code(s): D64.9 - ANEMIA, UNSPECIFIED SNOMED Code(s): 679509847 Comment: FOBT positive stool. Presented with septic shock from GI source. Otherwise, no signs of bleeding. Iron deficient. - continue pantoprazole - finished five days of IV iron, now will do ferrous sulfate 325mg daily (3) CAD (coronary artery disease) Current Visit: Yes Status: Acute Code(s): I25.10 - ATHSCL HEART DISEASE OF [place] CORONARY ARTERY W/O ANG PCTRS SNOMED Code(s): 35077541 Comment: h/o CABG -continue BB, statin (4) Colitis Current Visit: Yes Status: Acute Code(s): K52.9 - NONINFECTIVE GASTROENTERITIS AND COLITIS, UNSPECIFIED SNOMED Code(s): 10876477 Comment: Or enteritis? Not clear by imaging, but pt presented with GI symptoms and had E. coli in blood. Had septic shock requiring pressors, lactic acidosis, metabolic acidosis (resolved) -received 10d zosyn, 4d metronidazole -s/p feeding tube, starting mech soft diet (5) DVT prophylaxis Current Visit: Yes Status: Acute Code(s): Z29.9 - ENCOUNTER FOR PROPHYLACTIC MEASURES, UNSPECIFIED SNOMED Code(s): 897349370 (6) E coli bacteremia Current Visit: Yes Status: Acute Code(s): R78.81 - BACTEREMIA SNOMED Code( s): 087724169285 Comment: -E. coli bacteremia in 2/4 bottles Completed 10 days of Zosyn: 05/19-05/29 Repeat cultures no growth thus far. (7) Full code status Current Visit: Yes Status: Acute Code(s): Z78.9 - OTHER SPECIFIED HEALTH STATUS SNOMED Code(s): 677187773 (8) Hiatal hernia Current Visit: Yes Status: Acute Code(s): K44.9 - DIAPHRAGMATIC HERNIA WITHOUT OBSTRUCTION OR GANGRENE SNOMED Code(s): 17103513 Comment: - no symptoms PPI added. (9) Hypertension Current Visit: Yes Status: Acute Code(s): I10 - ESSENTIAL (PRIMARY) HYPERTENSION SNOMED Code(s): 40782636 Comment: 06/08: home dose losartan was increased to 50mg daily. (10) Physical deconditioning Current Visit: Yes Status: Acute Code(s): R53.81 - OTHER MALAISE SNOMED Code(s): 97456715083149 Comment: Neuromuscular weakness due to critical illness. plan for PMRU for rehab. (11) Thrombocytopenia Current Visit: Yes Status: Acute Code(s): D69.6 - THROMBOCYTOPENIA, UNSPECIFIED SNOMED Code(s): 804636066 Comment: Likely from sepsis. stable. with no acute bleeding. (12) Urinary tract infection Current Visit: Yes Status: Acute Comment: augmentin BID to start today. Last dose Jun 14, 2019 Status and Disposition: Patient for PMRU today Full discharge summary to be dictated Things to know 1. Needs ENT to see patient, plan was to do trach cap trial- but per respiratory therapy we need a fenestrated trach. 2. Augmentin BID- last dose 06/14/19 for UTI 3. Needs GI referral as outpatient for iron deficiency anemia, and stool occult positive 3. Additional meds per my medication reconciliation
--- NOTE | 2019-06-10 11:59 | DS ---
CC: Dr. Tamie Sutherland; [facility]; Dr. Noriega; Dr. Sanches DISCHARGE SUMMARY: DATE OF ADMISSION: 05/19/19 DATE OF DISCHARGE: 06/10/19 PRIMARY CARE PROVIDER: Dr. Tamie Sutherland. CONSULTANTS DURING THE HOSPITAL COURSE: Included: 1. Dr. Mars Mendoza. 2. Dr. Nathan Dobson. 3. Dr. Gama Rajput. 4. Dr. Yates, ENT Physician. REASON FOR THE ADMISSION: Nausea, vomiting, confusion. DISCHARGE DIAGNOSES: Include: 1. Sepsis with septic shock. 2. Enteritis/colitis. 3. Escherichia coli bacteremia. 4. Urinary tract infection. 5. Chronic anemia with iron deficiency, stool occult positive. 6. History of hypertension. 7. History of coronary artery disease. HOSPITAL COURSE: This is a 78-year-old female who was brought into the hospital because of nausea, vomiting, and diarrhea for the past 3 to 4 days, was found to have elevated leukocytosis, low platelets, and increased anion gap metabolic acidosis, was also found to be in acute kidney injury due to dehydration and sepsis. The patient was admitted to the intensive care unit, was started on IV Zosyn, Flagyl, and was started on IV fluids. The patient was also in septic shock and the patient was in the intensive care unit. Hospital course was complicated by development of acute hypoxic respiratory failure, status post intubation. The patient had to be intubated and extubated several times, after which we did a tracheostomy. Regarding her septic shock, the patient also required IV fluids as well as Levophed to maintain the blood pressure. The patient's kidney function eventually improved. The patient was found to have E. coli bacteremia for which the patient completed full 10-day course of IV Zosyn. Subsequently, the patient's C. diff was negative and Flagyl was discontinued. Plan was to do a trach cap trial 2 days ago, however, it did not happen because of fever and then was not done because we found out that the patient has a different tracheostomy tube. The patient will need fenestrated trach in order to do a capping trial. The patient also received 5 days of IV iron therapy, after which we decided to give her oral iron from today onwards. Additionally, the patient also has a history of coronary artery disease. We continued with her beta-mayelin and statin as well. We increased her losartan dose to 50 mg. The patient is having physical deconditioning due to critical illness, she was intubated and extubated several times. She was seen by physical therapist. Case management was also following the patient and plan is for the patient to go to [facility] today. The patient also had a feeding tube placed and now is on mechanical soft diet, which she is tolerating. Hospital course was also complicated by laryngeal edema. DISCHARGE PLAN: Discharge Condition: Fair. Disposition: To the rehab unit, [facility]. Diet: Mechanical ground texture. DISCHARGE MEDICATIONS: Include: 1. Ferrous sulfate 325 mg daily. 2. Acetaminophen 650 mg every 4 hours as needed for fever, mild pain. 3. Albuterol/Ventolin nebulization 2.5 every 6 hours as needed for shortness of breath and wheezing. 4. Augmentin 875/125 b.i.d. for 5 days, last dose should be 06/14/19 in the evening. 5. Lipitor 40 mg at bedtime. 6. Vitamin D tablets 2000 units daily. 7. Guaifenesin 5 mL every 4 hours as needed for coughing/thick secretions. 8. Heparin flush PICC line at 0600 [id number]. 9. Lactobacillus 1 tab daily. 10. Losartan 50 mg daily. 11. Metoprolol succinate 25 mg daily. 12. Multivitamins 50 mL daily. 13. Nystatin 1 application tube topically t.i.d. as needed. 14. Pantoprazole 40 mg daily. 15. Alendronate 70 mg weekly. 16. Fluticasone nasal spray 2 sprays both nares daily. FOLLOWUP PLAN: 1. We recommend that ENT is called on 06/11/19 regarding the tracheostomy and for capping trial. According to respiratory therapy, the patient needs a fenestrated tracheostomy in order to do this. 2. We recommend that upon discharge from the [facility] unit the patient get a referral for an outpatient Gastroenterology for the workup of iron deficiency anemia and stool occult positive. 3. We recommend that if the PICC is no longer needed per the [facility] protocol, they could remove it. PHYSICAL EXAMINATION: Blood pressure is 137/58, 100% on trach at 35% FiO2, respiratory rate of 16, heart rate of 66, temperature of 98.6 Fahrenheit. General: Elderly female, lying in bed, frail appearing, in no distress. Tracheostomy site noted with no surrounding erythema or drainage. Pupils equal , round, and reactive to light. Atraumatic, normocephalic. Heart: There is no chest wall tenderness, regular rate and rhythm, no murmurs, rubs, or gallops. No lower extremity edema, no calf tenderness. Normoactive bowel sounds all 4 quadrants. Abdomen soft, nontender, nondistended. Extremities: There is a presence of a PICC line. [id number]/[facility] #: [id number] [facility] HOSPITALKasie
== END 2019-06-10 14:00 | DRG 4 ==
LOC: ED 12:49 → ICU 16:49 → SSU 06-04 11:25
PROVIDERS: ADMIT Internal Medicine; ATTEND Internal Medicine
PROC: 5A1955Z Respiratory Ventilation, Greater than 96 Consecutive Hours (ICD-10-PCS; 2019-05-20)
PROC: 0BH17EZ Insertion of Endotracheal Airway into Trachea, Via Natural or Artificial Opening (ICD-10-PCS; 2019-05-20)
PROC: 0BH17EZ Insertion of Endotracheal Airway into Trachea, Via Natural or Artificial Opening (ICD-10-PCS; 2019-05-27)
PROC: 5A1945Z Respiratory Ventilation, 24-96 Consecutive Hours (ICD-10-PCS; 2019-05-27)
PROC: 0BH17EZ Insertion of Endotracheal Airway into Trachea, Via Natural or Artificial Opening (ICD-10-PCS; 2019-05-29)
PROC: 5A1945Z Respiratory Ventilation, 24-96 Consecutive Hours (ICD-10-PCS; 2019-05-29)
PROC: 05HM33Z Insertion of Infusion Device into Right Internal Jugular Vein, Percutaneous Approach (ICD-10-PCS; 2019-05-30)
PROC: B543ZZA Ultrasonography of Right Jugular Veins, Guidance (ICD-10-PCS; 2019-05-30)
PROC: 0B113F4 Bypass Trachea to Cutaneous with Tracheostomy Device, Percutaneous Approach (ICD-10-PCS; principal; 2019-06-01)
PROC: 5A1935Z Respiratory Ventilation, Less than 24 Consecutive Hours (ICD-10-PCS; 2019-06-01)
PROC: 0DH67UZ Insertion of Feeding Device into Stomach, Via Natural or Artificial Opening (ICD-10-PCS; 2019-06-02)
PROC: 3E0G76Z Introduction of Nutritional Substance into Upper GI, Via Natural or Artificial Opening (ICD-10-PCS; 2019-06-02)
DX: A41.51 Sepsis due to Escherichia coli [E. coli] (principal); R65.21 Severe sepsis with septic shock; J96.21 Acute and chronic respiratory failure with hypoxia; N39.0 Urinary tract infection, site not specified; K92.1 Melena; N17.9 Acute kidney failure, unspecified; J98.11 Atelectasis; E87.2 Acidosis; E87.0 Hyperosmolality and hypernatremia; I24.8 Other forms of acute ischemic heart disease; L89.312 Pressure ulcer of right buttock, stage 2; D69.59 Other secondary thrombocytopenia; K52.9 Noninfective gastroenteritis and colitis, unspecified; B96.20 Unspecified Escherichia coli [E. coli] as the cause of diseases classified elsewhere; D50.9 Iron deficiency anemia, unspecified; I10 Essential (primary) hypertension; I25.10 Atherosclerotic heart disease of native coronary artery without angina pectoris; E86.0 Dehydration; M54.40 Lumbago with sciatica, unspecified side; K80.20 Calculus of gallbladder without cholecystitis without obstruction; N20.0 Calculus of kidney; I95.89 Other hypotension; S00.511A Abrasion of lip, initial encounter; W22.8XXA Striking against or struck by other objects, initial encounter; Y92.230 Patient room in hospital as the place of occurrence of the external cause; K57.30 Diverticulosis of large intestine without perforation or abscess without bleeding; J38.4 Edema of larynx; Z95.1 Presence of aortocoronary bypass graft; Z87.891 Personal history of nicotine dependence
CPT/HCPCS: 36415; 36600; 71045; 71046; 74019; 74176; 76705; 80048; 80053; 81003; 81015; 82272; 82306; 82330; 82465; 82607; 82728; 82746; 82803; 83540; 83550; 83605; 83630; 83690; 83735; 84100; 84134; 84439; 84443; 84478; 84484; 85025; 85027; 85049; 85060; 86140; 86850; 86900; 86901; 87040; 87045; 87046; 87070; 87077; 87086; 87186; 87205; 87493; 87641; 87899; 93005; 93306; 94002; 94003; 94640; 94660; 94667; 95885; 95909; 99284; A9270-GY; C1751; G8978-GP-CL; G8978-GP-CM; G8978-GP-CN; G8979-GP-CI; G8979-GP-CJ; G8979-GP-CK; J0330; J0360; J0610; J0696; J1160; J1644; J1650; J1885; J1940; J2250; J2270; J2405; J2543; J2704; J2916; J2920; J3010; J3475; J3480; J3490; J7060

== ENCOUNTER 2019-08-06 15:51 | Emergency (ER) | payer MEDICARE ==
[2019-08-06] MEDS ORDERED: Dexamethasone IV* 4 MG/ML 5 ML VIAL (20 MG) IVPB ONE (15:52)
--- OUTSIDE RECORDS SUMMARY | 2019-08-06 15:56 | XMS REPORT ---
:1940 Author Organization [facility] Care Team Providers Name Role Phone Unavailable Unavailable Unavailable Problems Condition Condition Condition Status Onset Resolution Last Treating Comments Name Details Category Date Date Treatment Clinician Date Sepsis, Sepsis, Diagnosis Active Charlotte unspecified unspecified 06-20 [place] organism organism [id number] Allergies, Adverse Reactions, Alerts Allergy Allergy Status Severity Reaction(s) Onset Inactive Treating Comments Name Type Date Date Clinician Unknown None Active Unknown None Unknown No Known Allergies For This Patient Medications Ordered Filled Start Stop Current Ordering Indication Dosage Frequency Signature Comments Components Medication Medication Date Date Medication? Clinician (SIG) Name Name No Known No Known No None None None Medications Medications For This For This Patient Patient Procedures This patient has no known procedures. Results This patient has no known results.
--- OUTSIDE RECORDS SUMMARY | 2019-08-06 15:56 | XMS REPORT ---
:1940 Author Organization [facility] Care Team Providers Name Role Phone Unavailable Unavailable Unavailable Problems Condition Condition Condition Status Onset Resolution Last Treating Comments Name Details Category Date Date Treatment Clinician Date Sepsis, Sepsis, Diagnosis Active Celina unspecified unspecified 06-20 [place] organism organism [id number] Allergies, Adverse Reactions, Alerts Allergy Allergy Status [...]
--- OUTSIDE RECORDS SUMMARY | 2019-08-06 15:56 | XMS REPORT | Summary of Care ---
:1940 Author Organization [facility] Address [address] [address] Care Team Providers Name Role Phone Tamie Sutherland Primary Care Provider Reason for Referral Refer to Department Only (Routine) Status Reason Specialty Diagnoses / Referred By Referred To Procedures Contact Contact Pending OTORHINOLARYNGOLOGY Diagnoses S/P emergency tracheotomy for assistance in breathing (HCC) Lambert Sutherland MD [address] [place] [id number] Scheduling Instructions Please indicate side affected in the diagnosis. Reason for Visit Reason Comments Follow Up from TCM pt c/o of piece of trach still in throat and feels congested wants to clear throat but cant like its stuck and it wont come out Encounter Details Date Type Department Care Team Description 07/30/2019 Office Visit [facility] S/P emergency tracheotomy for assistance in breathing (HCC) (Primary Dx); Practice MD Tamie Other iron deficiency anemia; [address] [facility] [place] [address] [place] [address] [phone] Allergies Active Allergy Reactions Severity Noted Date Comments No Known Drug Allergy 09/08/2007 documented as of this encounter (statuses as of 07/30/2019) Medications Medication Sig Dispensed Refills Start Date End Date Status CENTRUM SILVER Oral Tab Take 1 Tab by 0 Active mouth DAILY. ASPIRIN 81 MG Oral Tab Take 81 mg by 0 Active mouth DAILY. metoprolol succinate TAKE 1 TABLET BY 90 Tab 3 02/21/2019 Active (TOPROL XL) 25 MG Oral MOUTH ONCE DAILY TABLET SR 24 HRIndications: Coronary artery disease involving alturas coronary artery of alturas heart without angina pectoris atorvastatin (LIPITOR) TAKE 1 TABLET BY 90 Tab 3 02/21/2019 Active 40 MG Oral MOUTH ONCE DAILY TabIndications: Coronary artery disease involving alturas coronary artery of alturas heart without angina pectoris alendronate (FOSAMAX) TAKE 1 TABLET BY 12 Tab 1 03/05/2019 Active 70 MG Oral Tab MOUTH ONCE A WEEK fluticasone (FLONASE) USE 2 SPRAY(S) IN 16 g 5 04/13/2019 Active 50 MCG/ACT Nasal EACH NOSTRIL ONCE Suspension DAILY losartan (COZAAR) 25 MG TAKE 1 TABLET BY 90 Tab 1 05/02/2019 Active Oral Tab MOUTH ONCE DAILY Boyce-3 Fatty Acids Take by mouth 0 Active (FISH OIL BURP-LESS PO) THREE TIMES DAILY. 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 03/04/2014 Osteoporosis 01/29/2008 10/21/2015 Osteoporosis 09/08/2007 10/21/2015 documented as of this encounter (statuses as of 07/30/2019) Immunizations Name Administration Dates Next Due Influenza (IM) Preservative Free 02/13/2013 Influenza Vaccine High Dose 01/25/2019, 03/06/2018, 03/07/2017, 03/01/2016, 03/03/2015, 04/30/2014 Influenza Vaccine Whole 04/26/2006 PNEUMOCOCCAL POLYSACCHARIDE VACCINE 01/02/2008 Pneumococcal Conjugate(13 Valent) 10/21/2015 TDAP Vaccine 01/27/2010 documented as of this encounter Social History Tobacco Use Types Packs/Day Years Used Date Former Smoker 1 20 Smokeless Tobacco: Never Used Comments: quit 30 years ago Alcohol Use Drinks/Week oz/Week Comments No Sex Assigned at Date Recorded Not on file documented as of this encounter Last Filed Vital Signs Vital Sign Reading Time Taken Comments Blood Pressure 160/80 07/30/2019 11:02 AM EST Pulse 96 07/30/2019 11:02 AM EST Temperature 37.5 07/30/2019 11:02 AM C (99.5 EST F) Respiratory Rate - - Oxygen Saturation 99% 07/30/2019 11:02 AM EST Inhaled Oxygen Concentration - - Weight 62.5 kg (137 lb 12.8 oz) 07/30/2019 11:02 AM EST Height 152.4 cm (5') 07/30/2019 11:02 AM EST Body Mass Index 26.91 07/30/2019 11:02 AM EST documented in this encounter Patient Instructions Patient InstructionsTamie Sutherland MD - 07/30/2019 11:00 AM EST1. Schedule appointment with ENT 2. Follow up in 2 weeks for BP check documented in this encounter Progress Notes Tamie Sutherland MD - 07/30/2019 11:00 AM EST Patient: Shila Fortune Date of Service: 07/30/2019 Subjective: Shila Fortune is a 78-y.o. female who presents for Chief Complaint Patient presents with ? Follow Up from TCM pt c/o of piece of trach still in throat and feels congested wants to clear throat but cant like its stuck and it wont come out Patient comes follow up admission for septic shock, respiratory insufficiency, s /p tracheostoma Continues to have irritation in the site of the stoma, air leaking Improved fatigue, chua some weight BP is elevated Past Medical History: Diagnosis Date ? Hypertension 09/08/2007 ? Osteoporosis 09/08/2007 ? Borderline diabetes mellitus ? CAD (coronary artery disease) s/p CABG ? Hyperlipidemia 09/08/2007 ? Kidney stone 01/02/2008 Outpatient Medications as of 07/30/2019 Medication Sig Dispense Refill ? alendronate (FOSAMAX) 70 MG Oral Tab TAKE 1 TABLET BY MOUTH ONCE A WEEK 12 Tab 1 ? ASPIRIN 81 MG Oral Tab Take 81 mg by mouth DAILY. ? atorvastatin (LIPITOR) 40 MG Oral Tab TAKE 1 TABLET BY MOUTH ONCE DAILY 90 Tab 3 ? CENTRUM SILVER Oral Tab Take 1 Tab by mouth DAILY. ? fluticasone (FLONASE) 50 MCG/ACT Nasal Suspension USE 2 SPRAY(S) IN EACH NOSTRIL ONCE DAILY 16 g 5 ? losartan (COZAAR) 25 MG Oral Tab TAKE 1 TABLET BY MOUTH ONCE DAILY 90 Tab 1 ? metoprolol succinate (TOPROL XL) 25 MG Oral TABLET SR 24 HR TAKE 1 TABLET BY MOUTH ONCE DAILY 90 Tab 3 No current facility-administered medications on file as of 07/30/2019. Allergies Allergen Reactions ? No Known Drug Allergy Review of Systems: All remaining review of systems was negative. Objective: BP 160/80 (BP Location: Left arm, Patient Position: Sitting) Pulse 96 Temp 99.5 F (37.5 C) Ht 5' (1.524 m) Wt 137 lb 12.8 oz (62.5 kg) SpO2 99% BMI 26.91 kg/m2 GENERAL: Alert, anxious THROAT: lips, mucosa, and tongue normal: teeth and gums normal NECK: supple, symmetrical, trachea midline, no adenopathy. Skin umbilication in the tracheostoma site. No redness, swelling or discharge. Air leaking from the wound LUNGS: clear to auscultation bilaterally HEART: regular rate and rhythm, S1, S2 normal, no murmur, click, rub or gallop Macrocytic anemia, Normal Iron, elevated Ferritin, CMP - normal Component Latest Ref Rng & Units 06/28/2019 06/28/2019 06/28/2019 06/28/2019 1:40 PM 1:40 PM 1:40 PM 1:40 PM 1:40 PM WBC COUNT 3.98 - 10.04 K/uL 8.88 RBC 3.93 - 5.22 M/UL 3.26 (L) Hemoglobin 11.2 - 15.7 g/dL 9.9 (L) Hematocrit 34.1 - 44.9 % 32.1 (L) MCV 79.4 - 94.8 FL 98.5 (H) MCH 25.6 - 32.2 PG 30.4 MCHC 32.2 - 35.5 g/dL 30.8 (L) Platelet Count 182 - 369 K/uL 225 MPV 9.4 - 12.3 FL 10.4 RDW 11.7 - 14.4 % 17.5 (H) NEUTROPHILS 34.0 - 71.1 % 53.2 Lymphocyte % 19.3 - 51.7 % 34.1 MONOCYTES 4.7 - 12.5 % 7.4 Eosinophils 0.7 - 5.8 % 4.2 Basophil % 0.1 - 1.2 % 0.8 nRBC % 0.0 - 0.2 % 0.0 Neutrophil # 1.56 - 6.13 K/UL 4.72 Lymphocyte # 1.18 - 3.74 K/UL 3.03 Monocyte # 0.24 - 0.86 K/UL 0.66 Eosinophil # 0.04 - 0.36 K/UL 0.37 (H) Basophil # 0.01 - 0.08 K/UL 0.07 Immature Gran % 0.0 - 0.4 % 0.3 Immature Gran # 0.00 - 0.03 K/uL 0.03 NRBC # 0.00 - 0.12 K/uL 0.00 Sodium 134 - 145 mmol/L 135 Potassium 3.5 - 5.1 mmol/L 4.1 Chloride 98 - 107 mmol/L 103 CO2 22 - 30 mmol/L 22 Calcium 8.3 - 10.1 mg/dl 9.5 Albumin 3.5 - 5.0 g/dl 3.8 BUN 7 - 17 mg/dl 11 Creatinine 0.7 - 1.2 mg/dl 0.5 (L) Glucose (Lab) 70 - 99 mg/dl 99 Protein,Total 6.3 - 8.2 g/dl 7.4 Total Bilirubin 0.0 - 1.1 MG/DL 0.4 AST 15 - 46 U/L 35 ALT 9 - 52 U/L 29 ALKALINE PHOSPHATASE 40 - 150 U/L 81 eGFR See Interpretation Below ml/min/1.73ml Sq >60 BUN/Creatinine Ratio 6 - 22 RATIO 22 Anion Gap 3 - 11 mmol/L 10 A/G Ratio 0.8 - 2.0 ratio 1.1 Magnesium 1.6 - 2.3 MG/DL 1.8 Ferritin 11.1 - 264.0 NG/ML 554.0 (H) Iron Serum 37 - 170 UG/DL 74 Patient advised on tests results ICD-9-CM ICD-10-CM 1. S/P emergency tracheotomy for assistance in breathing (HCC) V44.0 Z93.0 REFER TO OTOLARYNGOLOGY (ENT) 2. Other iron deficiency anemia 280.8 D50.8 FERRITIN IRON CBC WITH DIFFERENTIAL 3. Essential hypertension 401.9 I10 Patient Instructions 1. Schedule appointment with ENT 2. Follow up in 2 weeks for BP check Author: Tamie Sutherland MD documented in this encounter Plan of Treatment Date Type Specialty Care Team Description 08/13/2019 Nurse/Clinical Support Internal Medicine 10/23/2019 Ancillary Procedure Radiology 02/26/2020 Orders Only Cardiology 03/03/2020 Office Visit Cardiology Joaquim Waters MD [address] [place] [address] [phone] Name Type Priority Associated Diagnoses Date/Time FERRITIN Lab Routine Other iron deficiency 07/30/2019 11:25 AM EST anemia IRON Lab Routine Other iron deficiency 07/30/2019 11:25 AM EST anemia CBC WITH DIFFERENTIAL Lab Routine Other iron deficiency 07/30/2019 11:25 AM EST anemia Name Type Priority Associated Diagnoses Order Schedule REFER TO OTOLARYNGOLOGY Referral Routine S/P emergency Expected: (ENT) tracheotomy for 07/30/2019, assistance in Expires: 07/30/2020 breathing (HCC) Health Maintenance Due Date Last Done Comments DEPRESSION SCREENING 12/26/2019 12/25/2018 FALL RISK ASSESSMENT 12/26/2019 12/25/2018, 12/25/2018 MEDICARE ANNUAL WELLNESS 12/26/2019 12/25/2018, 10/21/2015, VISIT 10/21/2015, Additional history exists DTaP/Tdap/Td Vaccines (2 - 01/28/2020 01/27/2010 Tdap) HIV SCREENING 01/30/2020 Postponed from 1957 (Patient refused) DIABETES SCREENING 06/28/2020 06/28/2019, 11/20/2018, 11/20/2018, Additional history exists ZOSTER IMMUNIZATION SERIES 06/28/2020 Postponed from (1 of 2) 1992 (Vaccine not available) OSTEOPOROSIS SCREENING 11/02/2027 11/01/2017, 11/17/2015, 11/07/2012 PNEUMOCOCCAL 65+YRS Completed 10/21/2015, 01/02/2008 INFLUENZA VACCINE Completed 01/25/2019, 03/06/2018, 03/07/2017, Additional history exists HEPATITIS A IMMUNIZATION Aged Out No longer eligible SERIES based on patient's age to complete this topic HPV IMMUNIZATION SERIES Aged Out No longer eligible based on patient's age to complete this topic MENINGOCOCCAL VACCINE IMM Aged Out No longer eligible based on patient's age to complete this topic documented as of this encounter Goals Goal Patient Goal Associated Recent Patient-Stated? Author Type Problems Progress Blood Pressure Blood Pressure Hypertension 160/80 No Kayoderamy, < 140/90 (07/30/2019 Tamie, 11:02 AM EST) Note: Hypertension Care Plan Based on the patient's clinical history and according to JNC 8 guidelines target blood pressure goal is less than 140/90. Based on the patient's last blood pressure of BP: (!) 154/96 the patient is at above goal. As your provider, it is important that I advise you regarding: your current medications and help you with any challenges you may face taking your medications as directed (ex. instructions, cost, side effects, and interactions). Important lifestyle changes: exercise, weight reduction and dietary sodium reduction your clinical goals and how you can achieve success: weight reduction and exercise plan medication management: adjusted medications as appropriate patient education/self-management tools provided: Yes To successfully manage my Hypertension I will: monitor my blood pressure daily, understanding that my goal is less than 140/ 90 per my healthcare provider's recommendation. I will schedule an appointment with my provider if consistent abnormal readings greater than 160/100. take medications every day as prescribed by my healthcare provider and if unable to take them I will discuss with my provider. monitor for symptoms of chest pain, chest tightness/pressure, irregular heartbeat, persistent dizziness, radiating arm pain, and neck or jaw pain. If any of these symptoms are noticed I will seek medical attention immediately by calling 911 exercise/walk 30 minutes 5 day(s) per week. If I experience chest pain, chest tightness, or shortness of breath, I will seek medical attention immediately. follow a diet rich in fruits, vegetables, and low-fat dairy products with reduced content of saturated & total fat. I will reduce my sodium intake daily. An example is the DASH diet. To obtain more information please refer to the DASH Eating Plan listed in Educational Resources. record my blood pressure results. Jarred is safe and secure way for you to do this in your medical record online. limit alcohol consumption. For men two drinks per day and women one drink per day. if currently smoking, will discuss how to quit smoking with my healthcare provider and work towards quitting. Educational Resources: National Heart, Lung, & Blood Tow http://nhlbi.nih.gov/hbp/index.html The DASH Diet Eating Plan http://www.nhlbi.nih.gov/health/health-topics/ topics/dash/ Academy of Nutrition & DIetetics http://eatright.org National Smoking Cessation Site http://smokefree.gov Blood Pressure < Blood Pressure 160/80 (07/30/2019 No Tamie Sutherland, 150/90 11:02 AM EST) Note: This is an individualized treatment (blood pressure) goal for Shila Fortune: Displayed above (on the left) is your goal for blood pressure control. Your most recent blood pressure is also shown above, on the right. You should try to achieve blood pressures that are lower than your goal listed above (on the left). Take all prescribed medications as Self-management No Tamie Sutherland MD directed Note: This is an individualized self-management goal for Shila Fortune: Please take all prescribed medications as directed. 1. Do not skip doses. If you cannot afford your medications, talk with your doctor. 2. Use a pill reminder system such as a pill box if needed. Your pharmacist can help you with this. 3. Contact your Pharmacy 5 days before your medication runs out. If you cannot take your medications for any reasons, talk with your doctor. 4. Please bring all of your medication bottles and inhalers (or a list of all your medications/inhalers) with you to every visit. Potential barriers to meeting all of your care plan goals will continue to be addressed on an ongoing basis. documented as of this encounter Results Not on filedocumented in this encounter Visit Diagnoses Diagnosis Other iron deficiency anemia S/P emergency tracheotomy for assistance in breathing (HCC) Tracheostomy status Essential hypertension Unspecified essential hypertension documented in this encounter Insurance Payer Benefit Plan / Subscriber ID Effective Dates Phone Address Type Group [employer]ICARE EXCELL [id number] 2015-Present [employer] MEDICARE BLUE PPO [phone]) Guarantor Name Account Type Relation to Date of Phone Billing Patient Address Shila Fortune Personal/Family 1940 [phone] [id number] (Home) [place], [place] [phone] [id number] (Work) documented as of this encounter
--- OUTSIDE RECORDS SUMMARY | 2019-08-06 15:56 | XMS REPORT | Summary of Care ---
:1940 Author Organization [facility] Address [address] [place] [address] Care Team Providers Name Role Phone Tamie Sutherland Primary Care Provider Reason for Visit Reason Comments Transitional Care Management [facility] discharge 06/21/19 TCM call completed. Blood Infection Still feeling weak. Encounter Details Date Type Department Care Team Description 06/28/2019 Office Visit [facility], H/O gram negative sepsis ( Primary Dx); Chloe Willett MD Essential hypertension; [address] Other iron deficiency anemia; [place] [address] [place] [address] Constipation, unspecified constipation type; [phone] H/O respiratory failure; Osteopenia, unspecified location Allergies Active Allergy Reactions Severity Noted Date Comments No Known Drug Allergy 09/08/2007 documented as of this encounter (statuses as of 06/28/2019) Medications Medication Sig Dispensed Refills Start Date End Date Status CENTRUM SILVER Take 1 Tab by 0 Active Oral Tab mouth DAILY. ASPIRIN 81 MG Oral Take 81 mg by 0 Active Tab mouth DAILY. metoprolol TAKE 1 TABLET 90 Tab 3 02/21/2019 Active succinate (TOPROL BY MOUTH ONCE XL) 25 MG Oral DAILY TABLET SR 24 HRIndications: Coronary artery disease involving nikolski coronary artery of nikolski heart without angina pectoris atorvastatin TAKE 1 TABLET 90 Tab 3 02/21/2019 Active (LIPITOR) 40 MG BY MOUTH ONCE Oral DAILY TabIndications: Coronary artery disease involving nikolski coronary artery of nikolski heart without angina pectoris alendronate TAKE 1 TABLET 12 Tab 1 03/05/2019 Active (FOSAMAX) 70 MG BY MOUTH ONCE Oral Tab A WEEK fluticasone USE 2 16 g 5 04/13/2019 Active (FLONASE) 50 SPRAY(S) IN MCG/ACT Nasal EACH NOSTRIL Suspension ONCE DAILY losartan (COZAAR) TAKE 1 TABLET 90 Tab 1 05/02/2019 Active 25 MG Oral Tab BY MOUTH ONCE DAILY Magnesium 400 MG Take 1 Cap by 0 06/21/2019 Active Oral Cap mouth DAILY. 0 mometasone 1 Appl by 45 g 1 10/21/2015 Discontinued (ELOCON) 0.1 % Topical route 0 (Other) Apply externally TWO TIMES Cream DAILY NEEDED (pruritis). 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 documented as of this encounter Last Filed Vital Signs Vital Sign Reading Time Taken Comments Blood Pressure 122/68 06/28/2019 1:06 PM EST Pulse 93 06/28/2019 1:06 PM EST Temperature - - Respiratory Rate - - Oxygen Saturation 96% 06/28/2019 1:06 PM EST Inhaled Oxygen Concentration - - Weight 61.2 kg (135 lb) 06/28/2019 1:06 PM EST Height 152.4 cm (5') 06/28/2019 1:06 PM EST Body Mass Index 26.37 06/28/2019 1:06 PM EST documented in this encounter Patient Instructions Patient InstructionsTamie Sutherland MD - 06/28/2019 1:00 PM EST1. Hold Fosamax 2. Schedule Dexa scan in 10/2019 3. Take 1 can of Ensure a day 4. Colace 100 mg 2 times a day 5. Follow up in 1 month and as needed documented in this encounter Progress Notes Tamie Sutherland MD - 06/28/2019 1:00 PM EST Patient: Shila Fortune Date of Service: 06/28/2019 Subjective: Shila Fortune is a 78-y.o. female who presents for Chief Complaint Patient presents with Transitional Care Management [facility] discharge 06/21/19 TCM call completed. Blood Infection Still feeling weak. TCM Statement. Review of the hospitalization: I am seeing for transition of care following hospitalization. The date of discharge was: 06/10/19 from [facility] active service and 06/21/19 from [facility] The discharge diagnosis was Sepsis with septic shock. E coli bacteremia. UTI. Respiratory failure I reviewed the discharge summary, discharge instructions, and pertinent additional documentation obtained during hospitalization. I reconciled the medications. I also reviewed the Transition of Care documentation done by staff. Coordination of care. (delete one and this phrase) - I am satisfied that appropriate referrals are in place to deal with the problems identified during hospitalization, and that the patient has adequate community resources and support in place. - Additional testing related to hospitalization was requested today: yes See orders. I confirmed the patient's understanding of the diagnosis and plan of care. Specific education that was provided today: Patient Instructions 1. Hold Fosamax 2. Schedule Dexa scan in 10/2019 3. Take 1 can of Ensure a day 4. Colace 100 mg 2 times a day 5. Follow up in 1 month and as needed The current and discharge medications were reconciled by me, today The source document was hospital discharge summary Patient presented to [facility] ER on 05/19 with complains of nausea/vomiting/diarrhea started 3-4 days prior Patient was found to have high blood count, metabolic acidosis, elevated creatinine. Patient was diagnosed with sepsis. Started on IV fluids, Zosyn and Flagyl IV. Condition was complicated by developing acute respiratory failure that required intubation and septic shock that required IV Levophed Tracheostoma was placed consequently Patient was wined of the ventilator and Levophed drip Patient was also found to be Iron deficient. Started on Iron supplement (not on it now) Stool was positive for occult blood Patient was transferred to [facility] Tracheostoma was caped and than discontinued Undergone PT/OT for strength and balance She is generally still feels fatigued Improving appetite. Ambulates with cane and with walker Has some problem with constipation. Past Medical History: Diagnosis Date Hypertension 09/08/2007 Osteoporosis 09/08/2007 Borderline diabetes mellitus CAD (coronary artery disease) s/p CABG Hyperlipidemia 09/08/2007 Kidney stone 01/02/2008 Outpatient Medications as of 06/28/2019 Medication Sig Dispense Refill alendronate (FOSAMAX) 70 MG Oral Tab TAKE 1 TABLET BY MOUTH ONCE A WEEK 12 Tab 1 ASPIRIN 81 MG Oral Tab Take 81 mg by mouth DAILY. atorvastatin (LIPITOR) 40 MG Oral Tab TAKE 1 TABLET BY MOUTH ONCE DAILY 90 Tab 3 CENTRUM SILVER Oral Tab Take 1 Tab by mouth DAILY. fluticasone (FLONASE) 50 MCG/ACT Nasal Suspension USE 2 SPRAY(S) IN EACH NOSTRIL ONCE DAILY 16 g 5 losartan (COZAAR) 25 MG Oral Tab TAKE 1 TABLET BY MOUTH ONCE DAILY 90 Tab 1 Magnesium 400 MG Oral Cap Take 1 Cap by mouth DAILY. metoprolol succinate (TOPROL XL) 25 MG Oral TABLET SR 24 HR TAKE 1 TABLET BY MOUTH ONCE DAILY90 Tab 3 No current facility-administered medications on file as of 06/28/2019. Allergies Allergen Reactions No Known Drug Allergy Review of Systems: All remaining review of systems was negative. Objective: BP 122/68 Pulse 93 Ht 5' (1.524 m) Wt 135 lb (61.2 kg) SpO2 96% BMI 26.37 kg/m2 GENERAL: alert, fatigued THROAT: lips, mucosa, and tongue normal: teeth and gums normal NECK: supple, symmetrical, trachea midline. Tracheostoma wound heals well LUNGS: clear to auscultation bilaterally HEART: regular rate and rhythm, S1, S2 normal, no murmur, click, rub or gallop ABDOMEN: soft, non-tender. Bowel sounds normal. No masses, no organomegaly EXTREMITIES: no edema ICD-9-CM ICD-10-CM 1. H/O gram negative sepsis Resolved V12.09 Z86.19 2. Essential hypertension 401.9 I10 COMPREHENSIVE METABOLIC PANEL MAGNESIUM LEVEL 3. Other iron deficiency anemia 280.8 D50.8 CBC WITH DIFFERENTIAL Consider colonoscopy FERRITIN IRON 4. Constipation, unspecified constipation type 564.00 K59.00 5. H/O respiratory failure Resolved V12.69 Z87.09 Patient Instructions 1. Hold Fosamax 2. Schedule Dexa scan in 10/2019 3. Take 1 can of Ensure a day 4. Colace 100 mg 2 times a day 5. Follow up in 1 month and as needed Author: Tamie Sutherland MD documented in this encounter Plan of Treatment Date Type Specialty Care Team Description 07/30/2019 Office Visit Family Practice Tamie Sutherland MD [facility] [place] [address] [phone] 10/23/2019 Ancillary Procedure Radiology 02/26/2020 Orders Only Cardiology 03/03/2020 Office Visit Cardiology Joaquim Waters MD [address] [place] [address] [phone] Name Type Priority Associated Diagnoses Date/Time COMPREHENSIVE METABOLIC Lab Routine Essential hypertension 06/28/2019 1: 40 PM PANEL EST CBC WITH DIFFERENTIAL Lab Routine Other iron deficiency 06/28/2019 1:40 PM anemia EST MAGNESIUM LEVEL Lab Routine Essential hypertension 06/28/2019 1:40 PM EST FERRITIN Lab Routine Other iron deficiency 06/28/2019 1:40 PM anemia EST IRON Lab Routine Other iron deficiency 06/28/2019 1:40 PM anemia EST Name Type Priority Associated Diagnoses Order Schedule XR DEXA SCAN 1 OR Imaging Routine Osteopenia, unspecified Expected: 2019, MORE SITES location Expires: 12/14/2021 Health Maintenance Due Date Last Done Comments DIABETES SCREENING 11/21/2019 11/20/2018, 11/20/2018, 11/01/2017, Additional history exists DEPRESSION SCREENING 12/26/2019 12/25/2018 FALL RISK ASSESSMENT 12/26/2019 12/25/2018, 12/25/2018 MEDICARE ANNUAL WELLNESS 12/26/2019 12/25/2018, 10/21/2015, VISIT 10/21/2015, Additional history exists DTaP/Tdap/Td Vaccines (2 - 01/28/2020 01/27/2010 Tdap) HIV SCREENING 01/30/2020 Postponed from 1957 (Patient refused) ZOSTER IMMUNIZATION SERIES 06/28/2020 Postponed from (1 [...] Problems Progress Blood Pressure Blood Pressure Hypertension 122/68 No Ena, < 140/90 (06/28/2019 Tamie, 1:06 PM EST) Note: Hypertension Care Plan Based on [...] Educational Resources. record my blood pressure results. [employer] is safe and secure way for you to do this in your medical record online. limit alcohol consumption. For men two drinks per day and women one drink per day. if currently smoking, will discuss how to quit smoking with my healthcare provider and work towards quitting. Educational Resources: National Heart, Lung, & Blood Mcgill http://nhlbi.nih.gov/hbp/index.html The DASH Diet Eating Plan http://www.nhlbi.nih.gov/health/health-topics/ topics/dash/ Academy of Nutrition & DIetetics http://eatright.org National Smoking Cessation Site http://smokefree.gov Blood Pressure < Blood Pressure 122/68 (06/28/2019 Tamie Borjas, 150/90 1:06 PM EST) Note: This is an individualized treatment [...] filedocumented in this encounter Visit Diagnoses Diagnosis Essential hypertension Unspecified essential hypertension Other iron deficiency anemia Constipation, unspecified constipation type H/O gram negative sepsis Personal history of other infectious and parasitic disease H/O respiratory failure Personal history of other diseases of respiratory system Osteopenia, unspecified location documented in this encounter Insurance Payer Benefit Plan / Subscriber ID Effective Dates Phone Address Type Group [facility] MEDICARE EXCELL xxxxxxxxxxxx 2015-Present [employer] ADVANTAGE MEDICARE BLUE PPO [phone]) Guarantor Name Account Type Relation to Date of Phone Billing Patient Address Shila Fortune Diamond Personal/Family 1940 [phone] [id number] (Home) [place], [place] [phone] (Work) documented as of this encounter
--- OUTSIDE RECORDS SUMMARY | 2019-08-06 15:56 | XMS REPORT ---
:1940 Author Organization [facility] Care Team Providers Name Role Phone Unavailable Unavailable Unavailable Problems Condition Condition Condition Status Onset Resolution Last Treating Comments Name Details Category Date Date Treatment Clinician Date Sepsis, Sepsis, Diagnosis Active [place] unspecified unspecified 06-20 [place] organism organism [id number] Allergies, Adverse Reactions, Alerts Allergy Allergy Status [...]
--- OUTSIDE RECORDS SUMMARY | 2019-08-06 15:57 | XMS REPORT ---
:1940 Author Organization [facility] Care Team Providers Name Role Phone Unavailable Unavailable Unavailable Problems Condition Condition Condition Status Onset Resolution Last Treating Comments Name Details Category Date Date Treatment Clinician Date Sepsis, Sepsis, Diagnosis Active [place] unspecified unspecified 06-20 Wendela organism organism Allergies, Adverse Reactions, Alerts Allergy Allergy Status [...]
--- NOTE | 2019-08-06 16:10 | ED ---
Shortness of Breath - HPI Summary HPI Summary: Patient is a 78 y/o F presenting to the ED for a chief complaint of shortness of breath and stridor for the last 3 weeks. She also notes mild dysphagia and believes she may have a blockage. No aggravating or alleviating factors are reported. Patient states she was seen by her ENT today who performed an scope as a workup for possible obstruction of her airway. He was unable to visualize any stenosis therefore she was sent to the ED for a CT. Patient reports a prior admission to the ICU at [facility] for 1 month for sepsis in May 2019. At that time, she had a tracheostomy placed, which was subsequently decannuated.She was discharged in early June. Bee Rajput is her ENT surgeon. - History of Current Complaint Chief Complaint: EDShortnessOfBreath Time Seen by Provider: 08/06/19 15:51 Hx Obtained From: Patient Onset/Duration: Sudden Onset, Lasting Weeks - 3 weeks, Still Present Timing: Constant Current Severity: Moderate Dyspnea At: Rest Aggravating Factors: Nothing Alleviating Factors: Nothing - Allergy/Home Medications Allergies/Adverse Reactions: Allergies Allergy/AdvReac Type Severity Reaction Status Date / Time No Known Allergies Allergy Verified 08/06/19 15:54 Home Medications: Home Medications Alendronate (NF) [Fosamax (NF)] 70 mg PO WEEKLY 06/03/19 [History Confirmed ] Atorvastatin* [Lipitor 40 MG*] 40 mg PO DAILY 06/03/19 [History Confirmed ] Acetaminophen ADULT LIQ* [Tylenol ADULT LIQ*] 650 mg PO Q4H PRN udc 06/10/19 [ Rx Confirmed 08/06/19] Multivitamins ADULT w/MIN LIQ* [Theragran w/MINERALS LIQ*] 15 ml PO DAILY udc 06/10/19 [Rx Confirmed 08/06/19] Cod Liver Oil 1 each PO DAILY 06/17/19 [History Confirmed 08/06/19] Cholecalciferol TAB* [Vitamin D TAB*] 2,000 units PO DAILY tab 06/20/19 [Rx Confirmed 08/06/19] Losartan TAB* [Cozaar TAB*] 50 mg PO DAILY tab 06/20/19 [Rx Confirmed 08/06/19] Magnesium Oxide TAB* [MagOx 400 TAB*] 400 mg PO DAILY #15 tab 06/20/19 [Rx Confirmed 08/06/19] Metoprolol Succinate XL TAB* [Toprol XL TAB*] 25 mg PO DAILY tab.xl 06/20/19 [ Rx Confirmed 08/06/19] PMH/Surg Hx/FS Hx/Imm Hx Previously Healthy: Yes Endocrine/Hematology History: Denies: Hx Diabetes Cardiovascular History: Reports: Hx Hypercholesterolemia, Hx Hypertension, Other Cardiovascular Problems/Disorders - triple bypass Respiratory History: Reports: Other Respiratory Problems/Disorders - pneumo during hiatal hernia surgery,acute resp failure intubated x3 GI History: Reports: Hx Hiatal Hernia, Other GI Disorders - colitis History: Reports: Hx Kidney Stones Musculoskeletal History: Reports: Other Musculoskeletal History - sciatica Sensory History: Reports: Hx Contacts or Glasses Denies: Hx Legally Blind, Hx Deafness, Hx Hearing Aid Opthamlomology History: Reports: Hx Contacts or Glasses Denies: Hx Legally Blind EENT History: Denies: Hx Deafness - Surgical History Surgical History: Yes Surgery Procedure, Year, and Place: triple bypass, stomach operation (it was twisted and always had heartburn) Infectious Disease History: No Infectious Disease History: Denies: Traveled Outside the [place] in Last 30 Days - Family History Known Family History: Positive: Other - sciatica Negative: Cardiac Disease, Diabetes - Social History Occupation: Retired Lives: With Family Alcohol Use: Rare Hx Substance Use: No Substance Use Type: Reports: None Hx Tobacco Use: Yes Smoking Status (MU): Former Smoker Review of Systems Positive: Other - Positive dysphagia Positive: Shortness Of Breath, Other - Positive wheezing Positive: Other - Positive scar on the bottom of the anterior neck All Other Systems Reviewed And Are Negative: Yes Physical Exam - Summary Physical Exam Summary: Constitutional: Well-developed, Well-nourished, Alert. (-) Distressed Skin: Warm, Dry HENT: Normocephalic; Atraumatic, +inspiratory stridor Eyes: Conjunctiva normal Neck: Musculoskeletal ROM normal neck. (-) JVD, (-) Nuchal rigidity, old tracheostomy scar. Cardio: Rhythm regular, rate normal, Heart sounds normal; Intact distal pulses; Radial pulses are 2+ and symmetric. (-) Murmur Pulmonary/Chest wall: Effort normal. (-) Respiratory distress, (-) Wheezes, (-) Rales Abd: Soft, (-) tenderness, (-) Distension, (-) Guarding, (-) Rebound Musculoskeletal: (-) Edema Lymph: (-) Cervical adenopathy Neuro: Alert, Oriented x3 Psych: Mood and affect Normal Triage Information Reviewed: Yes Vital Signs On Initial Exam: Initial Vitals Temp Pulse Resp BP Pulse Ox 97.3 F 108 22 204/106 98 08/06/19 15:52 08/06/19 15:52 08/06/19 15:52 08/06/19 15:52 08/06/19 15:52 Vital Signs Reviewed: Yes Procedures - Sedation Patient Received Moderate/Deep Sedation with Procedure: No Diagnostics - Vital Signs Vital Signs Temp Pulse Resp BP Pulse Ox 08/06/19 15:52 97.3 F 108 22 204/106 98 - Laboratory Lab Statement: Any lab studies that have been ordered have been reviewed, and results considered in the medical decision making process. - CT Neck CT CT Interpretation Completed By: Radiologist Summary of CT Findings: Neck CT IMPRESSION: #. Centered approximate 6 cm below the larynx there is a 1.5 cm cephalocaudal region of circumferential tracheal wall thickening which results in approximate 80% tracheal stenosis accounting for stridor. Consider benign stricture as well as neoplasm. Suggestion of potential associated soft tissue nodule contiguous with the posterior margin of the trachea measuring up to 0.7 x 0.7 cm in the axial plane and extending 1.2 cm cephalocaudal. Alternatively this may represent a paratracheal lymph node. Consider bronchoscopy for tissue sampling of the tracheal lesion for pathologic assessment. If clinically indicated the nodule posterior and contiguous with trachea could be further assessed with PET/CT. Reviewed by Dr. Bridges. Re-Evaluation - Re-Evaluation First Eval Re-Evaluation Time: 17:58 Change: Unchanged Comment: At 17:58, patient was made aware that she will be transferred to [facility]. Course/Dx - Course Course Of Treatment: 78 y/o F w recent ecoli sepsis, intubated in ICU s/p trach in Dec and subsequent decannulation p/w inspiratory stridor. Seen in ENT office , unable to visualize stenosis on scope. Easy WOB on RA but stridulous. 98%. CT shows subglottic stenosis. ENT recommends transfer to facility w CT surgery. Accepted at by CT surgery. Given 10 mg decadron. - Diagnoses Provider Diagnoses: Tracheal stenosis - Physician Notifications Discussed Care of Patient With: Gama Rajput - At 17:22, Dr. Gama Rajput recommends the patient be transferred. Patient may need CT surgery so patient requires transfer to a facility with a higher level of care. At 17:51, Dr. Sherwin Hill at [facility] reviewed the patients case and agrees to accept the patient as a transfer to their facility for a diagnosis of tracheal stenosis. Time Discussed With Above Provider: 17:22 Instructed by Provider To: Transfer Discharge ED - Sign-Out/Discharge Documenting (check all that apply): Patient Departure - Transfer - Discharge Plan Condition: Stable Disposition: TRANS HIGHER LVL OF CARE FAC Referrals: Tamie Sutherland MD [Primary Care Provider] - - Billing Disposition and Condition Condition: STABLE Disposition: Trans Higher Lvl of Care Fac - Attestation Statements Document Initiated by Hudsonibe: Yes Documenting Scribe: Awilda Barros Provider For Whom Kailyn is Documenting (Include Credential): Gwendolyn Bridges MD Scribe Attestation: Awilda Clements, scribed for Gwendolyn Bridges MD on 08/06/19 at 2145. Scribe Documentation Reviewed: Yes Provider Attestation: The documentation as recorded by the Awilda walker accurately reflects the service I personally performed and the decisions made by Gwendolyn villalta MD Status of Scribe Document: Viewed
[2019-08-06 22:16] VITALS: BP 145/75
== END 2019-08-06 22:31 | disposition short-term general hospital (02) ==
LOC: ED 15:51
DX: J39.8 Other specified diseases of upper respiratory tract (principal); E78.00 Pure hypercholesterolemia, unspecified; I10 Essential (primary) hypertension; Z87.442 Personal history of urinary calculi; Z95.1 Presence of aortocoronary bypass graft; Z87.891 Personal history of nicotine dependence; Z79.899 Other long term (current) drug therapy
CPT/HCPCS: 70490; 96374; 99284; J1100